=== PATIENT | female | born 1955 ===

== ENCOUNTER 2017-09-03 16:30 | Inpatient (IN) | payer MEDICARE, OTHER ==
[2017-09-03] MEDS ORDERED: Dexamethasone 10 MG/ML VIAL ONE ×2 (16:33)
[2017-09-03] MEDS ORDERED: Magnesium Sulfate 2 GM/100 ML BAG ONE (16:41)
[2017-09-03] MEDS ORDERED: Albuterol Sulfate 2.5 mg/3 ml Neb ONE (16:44)
[2017-09-03 16:47] LABS: Hemoglobin 14.2 g/dL (12.0-16.0); Mean Corpuscular HGB CONC 32.2 g/dL (32.0-36.0); Mean Corpuscular Hemoglobin 30.4 pg (27.0-31.0); Mean Corpuscular Volume 94.5 fl (81.0-99.0); Mean Platelet Volume 7.3 fL (7.4-10.4); Platelet Count 352 thou/uL (130-400); RBC Distribution Width 12.7 % (11.5-14.5); Red Blood Cell (RBC) Count 4.67 mill/uL (4.20-5.40); White Blood Cell (WBC) Count 24.3 thou/uL (4.8-10.8)
[2017-09-03 16:51] LABS: Actual Bicarbonate (HCO3a) 32.3 mEq/L (22-26); Base Excess (BEa) 5.2 mEq/L (0 (+/-) 2.5); CO2 Tension 58.8 mmHg (35.0-45.0); Hematocrit-ABG 46.5 % (36.0-47.0); O2 Tension (PaO2) 61.5 mmHg (80.0-100.0); pH, Arterial 7.36 (7.35-7.45)
[2017-09-03 16:52] LABS: Analyzer IN Cardio ER; Calcium, Ionized 1.2 mmol/L (1.12-1.30); Hemoglobin (Hb) 8.1 g/dL (12.0-16.0); Puncture Site RBA
[2017-09-03 16:53] LABS: INR-International Normal Ratio 1.2; PTT 33.3 SEC (22.9-36.1); Prothrombin Time 15.1 SEC (12.0-14.7)
[2017-09-03 17:02] LABS: Band 3 % (5-11); Lymphocytes 14 % (21-51); MDiff Complete? YES; Monocytes 7 % (0-10); Neutrophil 72 % (42-75); Nucleated RBC 1 % (0); PLT Morphology Comment Appears Adequate; RBC Morphology Normal; Reactive Lymphocytes 4 % (0-10)
[2017-09-03 17:05] LABS: ALT (SGPT) 17 U/L (8-55); AST (SGOT) 18 U/L (5-34); Albumin 4.1 g/dL (3.4-4.8); Alkaline Phosphatase 85 U/L (40-150); Anion Gap 20 mmol/L (10-20); BUN (Urea Nitrogen) 11 mg/dL (9.8-20.1); Bilirubin, Total 0.6 mg/dL (0.2-1.2); CK (CPK) 27 U/L (29-168); Calc. Creatinine Clearance 0 mL/min (70-130); Calcium 10.2 mg/dL (7.8-10.44); Carbon Dioxide 28 mmol/L (23-31); Chloride 93 mmol/L (98-107); Estimated GFR-MDRD 77; Globulin 3.5 g/dL (2.4-3.5); Glucose 279 mg/dL (80-115); Lipase 16 U/L (8-78); Potassium 4.6 mmol/L (3.5-5.1); Protein, Total 7.6 g/dL (6.0-8.3); Sodium 136 mmol/L (136-145)
[2017-09-03 17:08] LABS: CKMB 0.8 ng/mL (0-6.6); Troponin I Less than 0.010 ng/mL (< 0.028)
[2017-09-03 17:09] LABS: Bilirubin Negative (Negative); Blood, Urine Negative (Negative); Clarity CLEAR (Clear); Glucose, Urine (Dipstick) 250 mg/dL (Negative); Leukocyte Negative (Negative); Nitrite Negative (Negative); Protein, Urine (Dipstick) Negative (Neg-Trace); Specific Gravity, Urine 1.018 (1.002-1.036); Urobilinogen 0.2 mg/dL (0.2-1.0)
--- NOTE | 2017-09-03 19:01 | RAD ---
PORTABLE CHEST 09/03/17 PROVIDED CLINICAL HISTORY: Dyspnea. FINDINGS: comparison is made with the study dated 08/15/16. The examination is somewhat rotated. The cardiac silhouette is within normal limits for portable tech nique. There is interval development of pleural and/or parenchymal opacity involving the right mid an d lower lung zones. The left lung appears clear. There is no evidence for pleural fluid. Volume loss of the right lung base cannot be excluded. The left lung appears clear. There is no evidence for pleu ral fluid. Volume loss at the right lung base cannot be excluded as there appears to be possibly elev ation of the right hemidiaphragm. IMPRESSION: Development of right basilar pleural and/or parenchymal opacity. Pleural effusion with adjacent atele ctasis or infiltrate are possible. Followup is recommended. POS: GRAEME
[2017-09-03] MEDS ORDERED: Ondansetron HCl/PF 4 MG/2 ML Vial IVP PRN ×2 (21:02→21:10)
[2017-09-03] MEDS ORDERED: Ondansetron ODT 4 MG TAB SL PRN (21:02)
[2017-09-03] MEDS ORDERED: Sodium Chloride 0.9% 1,000 ML IV SCH (21:02)
[2017-09-03 21:04] LABS: Lactic Acid 2.2 mmol/L (0.5-2.2)
[2017-09-03] MEDS ORDERED: Acetaminophen 325 MG TAB PO PRN (21:10)
[2017-09-03] MEDS ORDERED: Acetaminophen 650 MG Suppository PR PRN (21:10)
[2017-09-03] MEDS ORDERED: HYDROcodone/Acetaminophen 5/325 mg Tablet PO PRN (21:10)
[2017-09-03] MEDS ORDERED: Gabapentin 300 MG CAP PO PRN (21:10)
[2017-09-03] MEDS ORDERED: Bisacodyl 5 MG TAB PO PRN (21:10)
[2017-09-03] MEDS ORDERED: Ondansetron ODT 4 MG TAB PO PRN (21:10)
[2017-09-03] MEDS ORDERED: Guaifenesin DM 100-10/5 ML UDCUP PO PRN (21:10)
[2017-09-03] MEDS ORDERED: Famotidine 20 MG TAB PO SCH (21:30)
[2017-09-03] MEDS ORDERED: Flecainide 50 MG TAB PO SCH (21:30)
[2017-09-03] MEDS ORDERED: Docusate 100 MG CAP PO SCH (21:30)
[2017-09-03] MEDS ORDERED: Montelukast Sodium 10 mg Tablet PO SCH (21:30)
[2017-09-03] MEDS ORDERED: Apixaban 5 MG TAB PO SCH (21:30)
[2017-09-03] MEDS: Sodium Chloride 0.9% 1,000 ML IV SCH (21:46)
--- NOTE | 2017-09-04 01:27 | HP ---
PRIMARY CARE PHYSICIAN: Dr. Martinez at [facility]. PRIMARY MODELER: Dr. Chavez at [facility] CHIEF COMPLAINT: Shortness of breath and hypoxia. HISTORY OF PRESENT ILLNESS: This is a 62-year-old white female with a known history of significant C OPD/emphysema along with allergic bronchial aspergillosis and asthma who was typically on home oxygen 2 liter nasal cannula. She has never been intubated or in the ICU for her COPD. She was in her [facility] state of health until this week when she started having a little more postnasal drip drainage fro m her nose and some stuffiness in her nose. No other symptoms significant to speak up. She was at h er baseline, intermittent cough that was intermittently productive of clear sputum, then this morning she started having significant worsening of shortness of breath and her oxygen saturation kept dropp ing. She turned it up to 4 liters, then we will get up to the low 90s and then it would drop again a nd then she turned it up to 5 liters and it still dropped into the 80s and eventually she called the ambulance. EMS found her with severe respiratory distress. They recommended intubation, she refused and stated that she wanted to be a DO NOT INTUBATE, so they put her on CPAP. She was saturating 88% on CPAP. When she arrived to the emergency room here, she got Solu-Medrol, epinephrine and DuoNeb i n the ambulance. In the emergency room, she again refused intubation. She was given another DuoNeb followed by continuous albuterol nebs. She was given mag sulfate. She was given Decadron in additio n to her Solu-Medrol and then she was given 0.5 mg per kilograms ketamine IV push x1. After this, laurie irwin started to have some improvement in her respiratory status and started to saturate better on th e BiPAP and now feeling much better. She has been given Levaquin as well in the emergency room along with a couple liters of fluid. The patient's chest x-ray did show a right lower middle lobe infiltr ate versus mass versus collapse with possible elevated right hemidiaphragm. We do not have any old f ilms to compare to. The patient did have radiation on that side for breast cancer and has some possi ble nodule on that lung as well. She does not remember anything about it being collapsed or having s ignificant severe scarring. PAST MEDICAL HISTORY: 1. COPD/asthma. 2. Allergic bronchial pulmonary aspergillosis. 3. Atrial fibrillation with previously rapid ventricular rate. 4. Acute myeloid leukemia, treated with bone marrow transplant in 2013. 5. Right breast cancer status post surgery and radiation. PAST SURGICAL HISTORY: 1. Right lumpectomy and right mastectomy. 2. Bone marrow transplant. SOCIAL HISTORY: Patient used to smoke heavily, quit in 2003. No alcohol or illicit drugs. FAMILY HISTORY: No significant family medical history. ALLERGIES: SULFA ANTIBIOTICS. CURRENT MEDICATIONS: The patient does not remember specific doses or medications she is on, 1. Singulair 10 mg daily. 2. Spiriva once a day. 3. Symbicort unknown dose. 4. Eliquis, small dose twice a day. 5. Flecainide twice a day. 6. Diltiazem 120 mg daily. 7. Digoxin 1 or 2 two tablets a day. 8. Gabapentin, which she takes and stretches out throughout the day, but usually about 300 mg tablet s and she will take 5 or 6 per day. 9. Hydrocodone 5/325 mg as needed for pain, usually 1 at night and once in time during the day. REVIEW OF SYSTEMS: Constitutional: No fever or chills. Eyes: No double vision or blurred vision. ENT: See HPI. Car diovascular: No chest pain, no palpitations or racing heart. Pulmonary: See HPI. Gastrointestinal : No abdominal pain, no nausea or vomiting, no diarrhea or constipation. Genitourinary: No dysuria or hematuria. Musculoskeletal: No muscle aches or joint pains. Skin: No rashes or other lesions. Neurologic: No numbness, tingling or focal weakness. PHYSICAL EXAMINATION: VITAL SIGNS: Blood pressure 188/62, pulse 110, respirations 26, temperature 98.8, O2 sat 97% on BiPA P. GENERAL: This is a well-developed, thin white female in mild respiratory distress on BiPAP. HEENT: Pupils equal, round, and reactive to light. Oropharynx obscured by the BiPAP mask. NECK: Supple, no lymphadenopathy, no thyroid nodules or enlargement, no JVD. HEART: Irregularly irregular rhythm, slightly tachycardic. No murmurs. LUNGS: Patient has decreased breath sounds and some coarse crackles in the right base and right mid lung. She has poor air movement in the right throughout. Left side is clear. ABDOMEN: Soft, nontender to palpation, normoactive bowel sounds, no hepatosplenomegaly or other mass es. EXTREMITIES: No clubbing, cyanosis or edema. SKIN: No rashes or other lesions noted. NEUROLOGIC: Cranial nerves intact and equal bilaterally without facial droop. Her deep tendon refle xes are equal in bilateral extremities and her strength is 5/5 in all extremities. LABORATORY: White blood cell count 24,000 with only 3 bands, 72% neutrophils, hemoglobin, hematocrit and platelet count are normal. Coagulation profile: INR of 1.2. Blood gases did show a pH 7.36, p CO2 of 58.8 and a pO2 of 61.5. Complete metabolic panel shows a chloride of 93, glucose of 279, crea joanne kinase 27, the rest is completely normal. Troponins negative x1. Brain natriuretic peptide is normal. Lactic acid was elevated at 2.4. Urine just showed some glucose and ketones, no evidence of infection. Chest x-ray: I did review the chest x-ray along with the radiologist's report, does camilla w mass versus infiltrate versus collapse of the right, mid and lower lung zones and possible right he midiaphragm elevation. There is no evidence of pleural fluid. They actually had a film from about a year ago that did not have these changes on EKG. The patient has atrial fibrillation with mildly fa ster rate. No significant ST changes. ASSESSMENT AND PLAN: 1. Acute hypoxic and hypercapnic respiratory failure, markedly improved after treatment and BiPAP. The patient is still a bit tenuous, will need to go to the [facility] on BiPAP for now. We will need Pulm onology consulted. We will continue DuoNebs as well as Solu-Medrol and Levaquin. Patient may benefi t her CT scan, but will leave that to Pulmonology to determine, will may also from her bronchoscopy s hould this worsen mucous plug causing lung collapse. I confirmed with patient that she does not want to be intubated. 2. Pneumonia, community-acquired pneumonia put patient on Levaquin and will follow white blood cell count. Her leukocytosis is pretty significant though without bandemia. We will monitor for improvem ent. 3. Chronic obstructive pulmonary disease/allergic bronchial aspergillosis. 4. Atrial fibrillation with rapid ventricular rate. We will resume patient's home medication. We w ill try and confirm dosages. We will also resume patient's anticoagulant. 5. Gastrointestinal prophylaxis. Put the patient on Pepcid twice a day. 6. Code status. I did discuss the case with the patient and she is okay with CPR shocks, but does n ot want to be intubated at this point, so she is a DNI. Should she be incapacitated, her son, Jaya Gutierrez would be her medical power of business attorney.
[2017-09-04] MEDS ORDERED: Dextrose 5% in Water 1,000 ML IV PRN (01:37)
[2017-09-04] MEDS ORDERED: Dextrose 50% Abboject 50 ML SYRINGE IVP PRN (01:37)
[2017-09-04 05:33] LABS: #Lymphocytes 0.5 thou/uL (1.20-3.40); #Monocytes 0.1 thou/uL (0.11-0.59); #Neutrophils 13.4 thou/uL (1.40-6.50); %Eosinophils 0.1 % (0.0-10.0); %Lymphocytes 3.6 % (21.0-51.0); %Monocytes 0.8 % (0.0-10.0); %Neutrophils 95.5 % (42.0-75.0); Hemoglobin 11.4 g/dL (12.0-16.0); Mean Corpuscular Hemoglobin 30.3 pg (27.0-31.0); Mean Corpuscular Volume 94.8 fl (81.0-99.0); Mean Platelet Volume 7.3 fL (7.4-10.4); Platelet Count 271 thou/uL (130-400); RBC Distribution Width 12.5 % (11.5-14.5); Red Blood Cell (RBC) Count 3.75 mill/uL (4.20-5.40); White Blood Cell (WBC) Count 14.1 thou/uL (4.8-10.8)
[2017-09-04] MEDS: HumaLOG 300 UNITS/3 ML VIAL SC PRN ×2 (06:32→20:37)
[2017-09-04 06:44] LABS: Anion Gap 14 mmol/L (10-20); BUN (Urea Nitrogen) 11 mg/dL (9.8-20.1); Calc. Creatinine Clearance 78 mL/min (70-130); Calcium 8.2 mg/dL (7.8-10.44); Carbon Dioxide 29 mmol/L (23-31); Chloride 101 mmol/L (98-107); Estimated GFR-MDRD Greater than 90; Glucose 246 mg/dL (80-115); Potassium 4.5 mmol/L (3.5-5.1); Sodium 139 mmol/L (136-145)
[2017-09-04] MEDS ORDERED: Gabapentin 300 MG CAP PO SCH ×4 (09:00→17:00)
[2017-09-04] MEDS ORDERED: FLU VACC QS2017-18 36 mo. & older 0.5 ML SYRINGE IM ONE (09:00)
[2017-09-04] MEDS ORDERED: Flecainide 50 MG TAB PO SCH (09:00)
[2017-09-04] MEDS: Famotidine 20 MG TAB PO SCH ×2 (09:39→20:22)
[2017-09-04] MEDS: Docusate 100 MG CAP PO SCH ×2 (09:39→20:23)
[2017-09-04] MEDS: Apixaban 5 MG TAB PO SCH ×2 (09:41→20:22)
[2017-09-04] MEDS: Digoxin 0.125 MG TAB PO SCH (09:42)
[2017-09-04] MEDS: Sodium Chloride 0.9% 1,000 ML IV SCH (12:29)
[2017-09-04] MEDS ORDERED: Digoxin 0.125 MG TAB PO PRN (14:06)
[2017-09-04] MEDS ORDERED: PROVENTIL INHALER 6.7 G (200 INHALATIONS) INH PRN (14:06)
[2017-09-04] MEDS ORDERED: Lorazepam 0.5 MG TAB PO SCH (15:00)
[2017-09-04] MEDS: Levalbuterol HCl 0.63 MG/3 ML NEB NEB SCH ×2 (16:14→22:31)
[2017-09-04] MEDS: Gabapentin 300 MG CAP PO SCH ×3 (17:18→23:44)
[2017-09-04] MEDS: Ipratropium Bromide 2.5 ml Neb NEB SCH ×2 (18:50→22:32)
[2017-09-04] MEDS: Mometasone/Formoterol 120 PUFF INHALER INH SCH (18:51)
--- NOTE | 2017-09-04 19:16 | PDOC.PN ---
- Subjective Encounter Start Date: 09/04/17 Encounter Start Time: 11:00 Pt seen for followup re: acute respiratory failure. Reports cough, small amout of sputum. No chest pain. No fevers or chills. - Objective Resuscitation Status: Resuscitation Status DNI:No Intubation MAR Reviewed: Yes Vital Signs & Weight: Vital Signs (12 hours) Temp Pulse Pulse Pulse Resp BP BP 09/04/17 18:50 106 H 20 09/04/17 16:14 98 22 H 09/04/17 15:45 99.2 F 98 20 09/04/17 15:24 100 106 H 109/59 L 100/66 09/04/17 15:13 95/53 L 09/04/17 12:00 98.8 F 95 18 09/04/17 09:42 94 09/04/17 08:00 98.8 F 95 18 BP Pulse Ox Pulse Ox Pulse Ox 09/04/17 18:50 09/04/17 16:14 99 09/04/17 15:45 109/59 L 95 09/04/17 15:24 96 91 L 09/04/17 15:13 93 L 09/04/17 12:00 111/65 98 09/04/17 09:42 09/04/17 08:00 99 Weight Admit Weight 120 lb 9 oz Weight 120 lb 9 oz I&O: 09/03/17 09/04/17 09/05/17 06:59 06:59 06:59 Intake Total 1193.75 Output Total 800 1900 Balance 393.75 -1900 Result Diagrams: 09/04/17 04:55 09/04/17 04:55 Additional Labs: Accuchecks 09/04/17 09/04/17 09/04/17 16:27 10:46 06:27 POC Glucose 218 H 171 H 219 H EKG Reviewed by me: Yes (Tele: NSR) Phys Exam - Physical Examination Constitutional: NAD HEENT: PERRLA, moist MMs, sclera anicteric, oral pharynx no lesions Neck: no nodes, no JVD, supple, full ROM Respiratory: no wheezing, no rales, no rhonchi, clear to auscultation bilateral Cardiovascular: RRR, no rub Gastrointestinal: soft, non-tender, no distention, positive bowel sounds Musculoskeletal: pulses present Neurological: moves all 4 limbs Psychiatric: normal affect, A&O x 3 Skin: no rash Dx/Plan (1) Acute respiratory failure with hypoxia and hypercapnia Code(s): J96.01 - ACUTE RESPIRATORY FAILURE WITH HYPOXIA; J96.02 - ACUTE RESPIRATORY FAILURE WITH HYPERCAPNIA Status: Acute (2) CAP (community acquired pneumonia) Code(s): J18.9 - PNEUMONIA, UNSPECIFIED ORGANISM Status: Acute (3) COPD (chronic obstructive pulmonary disease) Status: Acute (4) Lactic acidosis Code(s): E87.2 - ACIDOSIS Status: Resolved - Plan continue antibiotics, PT/OT, out of bed/ambulate * . Continue oxygen, steroids, bronchodilators and antibiotics. In NSR today. Review of Systems - Review of Systems Constitutional: weakness. negative: fever, chills, sweats, malaise Respiratory: Cough, SOB with Excertion, Sputum. negative: Dry, Shortness of Breath, Hemoptysis, Pleuritic Pain, Wheezing Cardiovascular: negative: chest pain, palpitations, orthopnea, paroxysmal nocturnal dyspnea, edema, light headedness Gastrointestinal: negative: Nausea, Vomiting, Abdominal Pain, Diarrhea, Constipation, Melena, Hematochezia Genitourinary: negative: Dysuria, Frequency, Incontinence, Hematuria, Retention - Medications/Allergies Allergies/Adverse Reactions: Allergies Allergy/AdvReac Type Severity Reaction Status Date / Time Sulfa (Sulfonamide Allergy Verified 09/04/17 00:24 Antibiotics) Medications: Current Medications Acetaminophen (Tylenol) 650 mg KS Q4H PRN PRN Reason: Headache/Fever or Pain Acetaminophen (Tylenol Er (8hr Arthritis Pain)) 650 mg PO QID PRN PRN Reason: Pain Hydrocodone Bitart/Acetaminophen (Ashley 5/325) 1 tab PO Q6H PRN PRN Reason: Pain Albuterol Sulfate (Proventil Hfa) 2 puff INH Q6H PRN PRN Reason: SOB &/or Wheezing Albuterol/Ipratropium (Duoneb) 3 ml NEB [id number] PRN PRN Reason: SOB &/or Wheezing Alendronate Sodium (Fosamax) 70 mg PO Q7D@0600 [facility] Apixaban (Eliquis) 2.5 mg PO BID [facility] Last Admin: 09/04/17 09:41 Dose: 2.5 mg Bisacodyl (Dulcolax) 10 mg PO DAILYPRN PRN PRN Reason: Constipation Cholecalciferol (Vitamin D3) 1,000 units PO DAILY [facility] Cyclosporine (Restasis) 0.4 ml EA EYE BID [facility] Dextrose/Water (Dextrose 50%) 25 gm IVP PRN PRN PRN Reason: HYPOGLYCEMIA PROTOCOL Digoxin (Lanoxin) 0.125 mg PO DAILY [facility] Last Admin: 09/04/17 09:42 Dose: 0.125 mg Digoxin (Lanoxin) 0.125 mg PO DAILY PRN PRN Reason: To Control Heart Rate Diltiazem HCl (Cardizem Cd) 180 mg PO DAILY [facility] Docusate Sodium (Colace) 100 mg PO BID [facility] Last Admin: 09/04/17 09:39 Dose: 100 mg Famotidine (Pepcid) 20 mg PO BID [facility] Last Admin: 09/04/17 09:39 Dose: 20 mg Flecainide Acetate (Tambocor) 50 mg PO BID [facility] Gabapentin (Neurontin) 600 mg PO QAM [facility] Gabapentin (Neurontin) 300 mg PO 1300,1700,2100,2359 [facility] Last Admin: 09/04/17 17:18 Dose: 300 mg Glucagon (Glucagon) 1 mg IM PRN PRN PRN Reason: HYPOGLYCEMIA PROTOCOL Guaifenesin/Dextromethorphan (Robitussin Dm) 15 ml PO Q4H PRN PRN Reason: Cough Levofloxacin 750 mg/ Device 150 mls @ 100 mls/hr IVPB 1700 [facility] Last Admin: 09/04/17 17:16 Dose: 150 mls Sodium Chloride (Normal Saline 0.9%) 1,000 mls @ 75 mls/hr IV .[id number] [facility] Last Admin: 09/04/17 12:29 Dose: 1,000 mls Dextrose/Water (D5w) 1,000 mls @ 0 mls/hr IV INF PRN; As Directed PRN Reason: HYPOGLYCEMIA PROTOCOL Insulin Human Lispro (Humalog) 0 units SC .AGGRESSIVE SLIDING PRN; Protocol PRN Reason: AGGRESSIVE SLIDING SCALE Insulin Human Lispro (Humalog) 0 units SC .BEDTIME SLIDING SC PRN; Protocol PRN Reason: BEDTIME SLIDING SCALE Last Admin: 09/04/17 06:32 Dose: 2 unit Ipratropium [place] (Atrovent) 2.5 ml NEB [id number] [facility] Last Admin: 09/04/17 18:50 Dose: 2.5 ml Levalbuterol HCl (Xopenex) 0.63 mg NEB [id number] [facility] Last Admin: 09/04/17 16:14 Dose: 0.63 mg Lidocaine HCl (Xylocaine 4% Topical Sharon) 0 ml TOP BID PRN PRN Reason: Topical Anesthetic Lorazepam (Ativan) 0.5 mg PO Q4H PRN PRN Reason: Anxiety Methylprednisolone Sodium Succinate (Solu-Medrol) 40 mg IVP Q6HR [facility] Last Admin: 09/04/17 17:18 Dose: 40 mg Mometasone Furoate/Formoterol Fumar (Dulera 200 Mcg/5 Mcg Inhaler) 2 puff INH BID-RT [facility] Last Admin: 09/04/17 18:51 Dose: 2 puff Montelukast Sodium (Singulair) 10 mg PO HS [facility] Nebivolol (Bystolic) 2.5 mg PO DAILY [facility] Ondansetron HCl (Zofran Odt) 4 mg PO Q6H PRN PRN Reason: Nausea/Vomiting Ondansetron HCl (Zofran) 4 mg IVP Q6H PRN PRN Reason: Nausea/Vomiting Prednisone (Prednisone) 10 mg PO DAILY [facility] Sodium Chloride (Flush - Normal Saline) 10 ml IVF Q12HR [facility] Last Admin: 09/04/17 09:43 Dose: 10 ml Sodium Chloride (Flush - Normal Saline) 10 ml IVF PRN PRN PRN Reason: Saline Flush
[2017-09-04] MEDS: Montelukast Sodium 10 mg Tablet PO SCH (20:22)
[2017-09-04] MEDS: Flecainide 50 MG TAB PO SCH (20:22)
[2017-09-04] MEDS: cycloSPORINE 0.05% Ophthalmic Droperette EA EYE SCH (20:24)
[2017-09-04] MEDS ORDERED: Non-Formulary Item 1 EACH (Budesonide-Formoterol [Symbicort 160-4.5] 2 PUFF) INH SCH (21:00)
[2017-09-04] MEDS ORDERED: Non-Formulary Item 1 EACH (Apixaban [Eliquis] 2.5 MG) PO SCH (21:00)
[2017-09-04] MEDS ORDERED: Montelukast Sodium 10 mg Tablet PO SCH (21:00)
[2017-09-04] MEDS: Lorazepam 0.5 MG TAB PO PRN (23:44)
[2017-09-05] MEDS: HYDROcodone/Acetaminophen 5/325 mg Tablet PO PRN (00:56)
[2017-09-05] MEDS: Lidocaine 4% Topical Sol 50 ML BOT TOP PRN (01:04)
[2017-09-05] MEDS: Sodium Chloride 0.9% 1,000 ML IV SCH ×3 (03:53→22:30)
[2017-09-05 05:39] LABS: Hemoglobin 10.3 g/dL (12.0-16.0); Platelet Count 279 thou/uL (130-400)
[2017-09-05 05:42] LABS: Calc. Creatinine Clearance 85 mL/min (70-130); Estimated GFR-MDRD Greater than 90
[2017-09-05] MEDS: HumaLOG 300 UNITS/3 ML VIAL SC PRN ×3 (06:31→20:57)
[2017-09-05] MEDS: Levalbuterol HCl 0.63 MG/3 ML NEB NEB SCH ×3 (08:21→23:42)
[2017-09-05] MEDS: Ipratropium Bromide 2.5 ml Neb NEB SCH ×4 (08:24→23:42)
[2017-09-05] MEDS: Mometasone/Formoterol 120 PUFF INHALER INH SCH ×2 (08:24→18:59)
[2017-09-05] MEDS ORDERED: Gabapentin 300 MG CAP PO SCH (09:00)
[2017-09-05] MEDS ORDERED: predniSONE 5 MG TAB PO SCH (09:00)
[2017-09-05] MEDS ORDERED: Spiriva 18 MCG CAP (Box of 5 Caps) INH SCH (09:00)
[2017-09-05] MEDS ORDERED: Non-Formulary Item 1 EACH (Prednisone [Prednisone] 10 MG) PO SCH (09:00)
[2017-09-05] MEDS ORDERED: Non-Formulary Item 1 EACH (Cholecalciferol (Vitamin D3) [Vitamin D3] 1,000 UNIT) PO SCH (09:00)
[2017-09-05] MEDS: Apixaban 5 MG TAB PO SCH ×2 (09:12→20:55)
[2017-09-05] MEDS: Flecainide 50 MG TAB PO SCH ×2 (09:16→20:56)
[2017-09-05] MEDS: Digoxin 0.125 MG TAB PO SCH (09:16)
[2017-09-05] MEDS: Nebivolol HCl 2.5 MG TAB PO SCH (09:17)
[2017-09-05] MEDS: Famotidine 20 MG TAB PO SCH ×2 (09:17→20:56)
[2017-09-05] MEDS: Docusate 100 MG CAP PO SCH ×2 (09:24→20:55)
[2017-09-05] MEDS: cycloSPORINE 0.05% Ophthalmic Droperette EA EYE SCH ×2 (10:09→20:56)
[2017-09-05] MEDS: Gabapentin 300 MG CAP PO SCH ×2 (12:17→18:01)
[2017-09-05] MEDS: Insulin Detemir 100 UNITS/ML 15 UNITS in Pre-Filled Syringe 1 EACH SC SCH (12:19)
--- NOTE | 2017-09-05 14:09 | PDOC.PN ---
- Subjective Encounter Start Date: 09/05/17 Encounter Start Time: 11:00 Pt seen for followup re: acute respiratory failure. Denies chest pain, shortness of breath, fevers or chills. - Objective Resuscitation Status: Resuscitation Status DNI:No Intubation MAR Reviewed: Yes Vital Signs & Weight: Vital Signs (12 hours) Temp Pulse Resp BP Pulse Ox 09/05/17 10:45 98.0 F 108 H 20 122/62 96 09/05/17 09:16 105 H 09/05/17 08:25 99 09/05/17 08:21 105 H 20 99 09/05/17 07:49 98.4 F 99 16 97 09/05/17 07:00 97.8 F 88 17 99/61 99 09/05/17 04:00 98.4 F 99 16 100/58 L 96 Weight Admit Weight 120 lb 9 oz Weight 121 lb 3 oz I&O: 09/04/17 09/05/17 09/06/17 06:59 06:59 06:59 Intake Total 1193.75 900 Output Total 800 3075 Balance 393.75 -2175 Result Diagrams: 09/05/17 03:54 09/05/17 03:54 Additional Labs: Accuchecks 09/05/17 09/05/17 09/04/17 10:40 05:39 20:14 POC Glucose 199 H 231 H 219 H 09/04/17 16:27 POC Glucose 218 H EKG Reviewed by me: Yes (Tele: NSR) Phys Exam - Physical Examination Constitutional: NAD HEENT: moist MMs Respiratory: clear to auscultation bilateral Cardiovascular: RRR Gastrointestinal: soft Neurological: moves all 4 limbs Psychiatric: normal affect Dx/Plan (1) Acute respiratory failure with hypoxia and hypercapnia Code(s): J96.01 - ACUTE RESPIRATORY FAILURE WITH HYPOXIA; J96.02 - ACUTE RESPIRATORY FAILURE WITH HYPERCAPNIA Status: Acute (2) CAP (community acquired pneumonia) Code(s): J18.9 - PNEUMONIA, UNSPECIFIED ORGANISM Status: Acute (3) COPD (chronic obstructive pulmonary disease) Status: Acute (4) Lactic acidosis Code(s): E87.2 - ACIDOSIS Status: Resolved - Plan continue antibiotics, PT/OT, out of bed/ambulate * . Pt improved toay. Continue antibiotics, oxygen, steroids, bronchodilators. Review of Systems - Review of Systems Respiratory: Cough, Sputum. negative: Dry, Shortness of Breath, Hemoptysis, SOB with Excertion, Pleuritic Pain, Wheezing Cardiovascular: negative: chest pain, palpitations, orthopnea, paroxysmal nocturnal dyspnea, edema, light headedness - Medications/Allergies Allergies/Adverse Reactions: Allergies Allergy/AdvReac Type Severity Reaction Status Date / Time Sulfa (Sulfonamide Allergy Verified 09/04/17 00:24 Antibiotics) Medications: Current Medications Acetaminophen (Tylenol) 650 mg [place] Q4H PRN PRN Reason: Headache/Fever or Pain Acetaminophen (Tylenol Er (8hr Arthritis Pain)) 650 mg PO QID PRN PRN Reason: Pain Hydrocodone Bitart/Acetaminophen ([place] 5/325) 1 tab PO Q6H PRN PRN Reason: Pain Last Admin: 09/05/17 00:56 Dose: 1 tab Albuterol Sulfate (Proventil Hfa) 2 puff INH Q6H PRN PRN Reason: SOB &/or Wheezing Albuterol/Ipratropium (Duoneb) 3 ml NEB [id number] PRN PRN Reason: SOB &/or Wheezing Alendronate Sodium (Fosamax) 70 mg PO Q7D@0600 [facility] Apixaban (Eliquis) 2.5 mg PO BID [facility] Last Admin: 09/05/17 09:12 Dose: 2.5 mg Bisacodyl (Dulcolax) 10 mg PO DAILYPRN PRN PRN Reason: Constipation Cholecalciferol (Vitamin D3) 1,000 units PO DAILY [facility] Last Admin: 09/05/17 09:22 Dose: 1,000 units Cyclosporine (Restasis) 0.4 ml EA EYE BID [facility] Last Admin: 09/05/17 10:09 Dose: Not Given Dextrose/Water (Dextrose 50%) 25 gm IVP PRN PRN PRN Reason: HYPOGLYCEMIA PROTOCOL Digoxin (Lanoxin) 0.125 mg PO DAILY [facility] Last Admin: 09/05/17 09:16 Dose: 0.125 mg Digoxin (Lanoxin) 0.125 mg PO DAILY PRN PRN Reason: To Control Heart Rate Diltiazem HCl (Cardizem Cd) 180 mg PO DAILY [facility] Last Admin: 09/05/17 09:24 Dose: 180 mg Docusate Sodium (Colace) 100 mg PO BID [facility] Last Admin: 09/05/17 09:24 Dose: 100 mg Famotidine (Pepcid) 20 mg PO BID [facility] Last Admin: 09/05/17 09:17 Dose: 20 mg Flecainide Acetate (Tambocor) 50 mg PO BID [facility] Last Admin: 09/05/17 09:16 Dose: 50 mg Gabapentin (Neurontin) 600 mg PO Q6HR [facility] Last Admin: 09/05/17 12:17 Dose: 600 mg Glucagon (Glucagon) 1 mg IM PRN PRN PRN Reason: HYPOGLYCEMIA PROTOCOL Guaifenesin/Dextromethorphan (Robitussin Dm) 15 ml PO Q4H PRN PRN Reason: Cough Levofloxacin 750 mg/ Device 150 mls @ 100 mls/hr IVPB 1700 [facility] Last Admin: 09/04/17 17:16 Dose: 150 mls Sodium Chloride (Normal Saline 0.9%) 1,000 mls @ 75 mls/hr IV .[id number] [facility] Last Admin: 09/05/17 03:53 Dose: 1,000 mls Dextrose/Water (D5w) 1,000 mls @ 0 mls/hr IV INF PRN; As Directed PRN Reason: HYPOGLYCEMIA PROTOCOL Insulin Detemir 15 units/ (Miscellaneous Medication) 0.15 mls @ 0 mls/hr SC QAM [facility] Last Admin: 09/05/17 12:19 Dose: 0.15 mls Insulin Human Lispro (Humalog) 0 units SC .AGGRESSIVE SLIDING PRN; Protocol PRN Reason: AGGRESSIVE SLIDING SCALE Last Admin: 09/05/17 06:31 Dose: 6 unit Insulin Human Lispro (Humalog) 0 units SC .BEDTIME SLIDING SC PRN; Protocol PRN Reason: BEDTIME SLIDING SCALE Last Admin: 09/04/17 20:37 Dose: 2 unit Ipratropium [place] (Atrovent) 2.5 ml NEB [id number] [facility] Last Admin: 09/05/17 08:24 Dose: 2.5 ml Levalbuterol HCl (Xopenex) 0.63 mg NEB [id number] [facility] Last Admin: 09/05/17 08:21 Dose: 0.63 mg Lidocaine HCl (Xylocaine 4% Topical Sharon) 0 ml TOP BID PRN PRN Reason: Topical Anesthetic Last Admin: 09/05/17 01:04 Dose: 1 applic Lorazepam (Ativan) 0.5 mg PO Q4H PRN PRN Reason: Anxiety Last Admin: 09/04/17 23:44 Dose: 0.5 mg Methylprednisolone Sodium Succinate (Solu-Medrol) 40 mg IVP Q6HR [facility] Last Admin: 09/05/17 12:27 Dose: 40 mg Mometasone Furoate/Formoterol Fumar (Dulera 200 Mcg/5 Mcg Inhaler) 2 puff INH BID-RT [facility] Last Admin: 09/05/17 08:24 Dose: 2 puff Montelukast Sodium (Singulair) 10 mg PO HS [facility] Last Admin: 09/04/17 20:22 Dose: 10 mg Nebivolol (Bystolic) 2.5 mg PO DAILY [facility] Last Admin: 09/05/17 09:17 Dose: 2.5 mg Ondansetron HCl (Zofran Odt) 4 mg PO Q6H PRN PRN Reason: Nausea/Vomiting Ondansetron HCl (Zofran) 4 mg IVP Q6H PRN PRN Reason: Nausea/Vomiting Sodium Chloride (Flush - Normal Saline) 10 ml IVF Q12HR [facility] Last Admin: 09/05/17 10:09 Dose: Not Given Sodium Chloride (Flush - Normal Saline) 10 ml IVF PRN PRN PRN Reason: Saline Flush
--- NOTE | 2017-09-05 15:15 | EKG ---
Test Reason : Blood Pressure : / mmHG Vent. Rate : 121 BPM Atrial Rate : 121 BPM P-R Int : 164 ms QRS Dur : 096 ms QT Int : 316 ms P-R-T Axes : 061 068 088 degrees QTc Int : 448 ms Sinus tachycardia Nonspecific ST abnormality Abnormal ECG Confirmed by SUZANNE MASCORRO, GABRIEL ([id number]), newspaper managing editor MARIAM CERVANTES ([id number]) on 09/05/2017 3:14:44 PM Referred By: Confirmed By:GABRIEL PALACIOS MD
[2017-09-05] MEDS: Montelukast Sodium 10 mg Tablet PO SCH (20:56)
[2017-09-05] MEDS: Acetaminophen ER (8hr) 650 MG TAB PO PRN (21:11)
[2017-09-06] MEDS: HYDROcodone/Acetaminophen 5/325 mg Tablet PO PRN (00:01)
[2017-09-06] MEDS: Lidocaine 4% Topical Sol 50 ML BOT TOP PRN (01:17)
[2017-09-06] MEDS: Lorazepam 0.5 MG TAB PO PRN ×2 (01:17→20:01)
[2017-09-06 04:48] LABS: Anion Gap 11 mmol/L (10-20); BUN (Urea Nitrogen) 18 mg/dL (9.8-20.1); Calc. Creatinine Clearance 83 mL/min (70-130); Calcium 8.5 mg/dL (7.8-10.44); Carbon Dioxide 31 mmol/L (23-31); Chloride 103 mmol/L (98-107); Estimated GFR-MDRD Greater than 90; Glucose 297 mg/dL (80-115); Potassium 3.9 mmol/L (3.5-5.1); Sodium 141 mmol/L (136-145)
[2017-09-06 05:08] LABS: Band 18 % (5-11); Hemoglobin 10.6 g/dL (12.0-16.0); Lymphocytes 2 % (21-51); MDiff Complete? YES; Mean Corpuscular HGB CONC 31.8 g/dL (32.0-36.0); Mean Corpuscular Hemoglobin 30.2 pg (27.0-31.0); Mean Corpuscular Volume 94.8 fl (81.0-99.0); Mean Platelet Volume 7.4 fL (7.4-10.4); Monocytes 4 % (0-10); Neutrophil 76 % (42-75); PLT Morphology Comment Appears Adequate; Platelet Count 302 thou/uL (130-400); RBC Distribution Width 12.7 % (11.5-14.5); RBC Morphology Normal; Red Blood Cell (RBC) Count 3.51 mill/uL (4.20-5.40)
[2017-09-06] MEDS: Gabapentin 300 MG CAP PO SCH ×4 (06:11→17:56)
[2017-09-06] MEDS: HumaLOG 300 UNITS/3 ML VIAL SC PRN ×4 (06:23→20:08)
[2017-09-06] MEDS: Levalbuterol HCl 0.63 MG/3 ML NEB NEB SCH ×2 (07:47→14:47)
[2017-09-06] MEDS: Mometasone/Formoterol 120 PUFF INHALER INH SCH ×2 (07:50→19:30)
[2017-09-06] MEDS: Ipratropium Bromide 2.5 ml Neb NEB SCH ×3 (07:50→19:30)
[2017-09-06] MEDS: Apixaban 5 MG TAB PO SCH ×2 (08:18→20:00)
[2017-09-06] MEDS: Digoxin 0.125 MG TAB PO SCH (08:19)
[2017-09-06] MEDS: Famotidine 20 MG TAB PO SCH ×2 (08:19→20:01)
[2017-09-06] MEDS: Flecainide 50 MG TAB PO SCH ×2 (08:19→20:01)
[2017-09-06] MEDS: Docusate 100 MG CAP PO SCH ×2 (08:19→20:01)
[2017-09-06] MEDS: Nebivolol HCl 2.5 MG TAB PO SCH (08:20)
[2017-09-06] MEDS: Insulin Detemir 100 UNITS/ML 15 UNITS in Pre-Filled Syringe 1 EACH SC SCH (08:20)
[2017-09-06] MEDS: cycloSPORINE 0.05% Ophthalmic Droperette EA EYE SCH ×2 (08:21→20:12)
--- NOTE | 2017-09-06 14:37 | PDOC.PN ---
- Subjective Encounter Start Date: 09/06/17 Encounter Start Time: 10:40 Pt seen for followup re: acute respiratory failure. Feels better. - Objective Resuscitation Status: Resuscitation Status DNI:No Intubation MAR Reviewed: Yes Vital Signs & Weight: Vital Signs (12 hours) Temp Pulse Resp BP Pulse Ox 09/06/17 11:45 97.7 F 98 18 126/74 92 L 09/06/17 08:19 95 09/06/17 07:50 97 09/06/17 07:47 97.6 F 95 22 H 109/67 97 09/06/17 07:27 98.3 F 92 16 93 L 09/06/17 04:00 98.3 F 92 16 98/65 92 L Weight Admit Weight 120 lb 9 oz Weight 126 lb 8 oz I&O: 09/05/17 09/06/17 09/07/17 06:59 06:59 06:59 Intake Total 900 3300 Output Total 3075 3250 Balance -2175 50 Result Diagrams: 09/06/17 03:44 09/06/17 03:44 Additional Labs: Accuchecks 09/06/17 09/06/17 09/06/17 11:21 05:34 00:11 POC Glucose 319 H 275 H 271 H 09/05/17 09/05/17 20:31 15:41 POC Glucose 229 H 189 H EKG Reviewed by me: Yes (Tele: NSR) Phys Exam - Physical Examination Constitutional: NAD HEENT: moist MMs Neck: supple Respiratory: clear to auscultation bilateral Cardiovascular: RRR Gastrointestinal: soft Neurological: moves all 4 limbs Psychiatric: normal affect Dx/Plan (1) Acute respiratory failure with hypoxia and hypercapnia Code(s): J96.01 - ACUTE RESPIRATORY FAILURE WITH HYPOXIA; J96.02 - ACUTE RESPIRATORY FAILURE WITH HYPERCAPNIA Status: Acute (2) CAP (community acquired pneumonia) Code(s): J18.9 - PNEUMONIA, UNSPECIFIED ORGANISM Status: Acute (3) COPD (chronic obstructive pulmonary disease) Status: Acute (4) Lactic acidosis Code(s): E87.2 - ACIDOSIS Status: Resolved - Plan continue antibiotics, PT/OT, out of bed/ambulate * . Increase levemir dose. Continue levofloxacin. Review of Systems - Review of Systems Constitutional: negative: fever, chills, sweats, weakness, malaise Respiratory: Cough, Sputum. negative: Dry, Shortness of Breath, Hemoptysis, SOB with Excertion, Pleuritic Pain, Wheezing Cardiovascular: negative: chest pain, palpitations, orthopnea, paroxysmal nocturnal dyspnea, edema, light headedness - Medications/Allergies Allergies/Adverse Reactions: Allergies Allergy/AdvReac Type Severity Reaction Status Date / Time Sulfa (Sulfonamide Allergy Verified 09/04/17 00:24 Antibiotics) Medications: Current Medications Acetaminophen (Tylenol) 650 mg NM Q4H PRN PRN Reason: Headache/Fever or Pain Acetaminophen (Tylenol Er (8hr Arthritis Pain)) 650 mg PO QID PRN PRN Reason: Pain Last Admin: 09/05/17 21:11 Dose: 650 mg Hydrocodone Bitart/Acetaminophen ([place] 5/325) 1 tab PO Q6H PRN PRN Reason: Pain Last Admin: 09/06/17 00:01 Dose: 1 tab Albuterol Sulfate (Proventil Hfa) 2 puff INH Q6H PRN PRN Reason: SOB &/or Wheezing Albuterol/Ipratropium (Duoneb) 3 ml NEB [id number] PRN PRN Reason: SOB &/or Wheezing Alendronate Sodium (Fosamax) 70 mg PO Q7D@0600 [facility] Apixaban (Eliquis) 2.5 mg PO BID [facility] Last Admin: 09/06/17 08:18 Dose: 2.5 mg Bisacodyl (Dulcolax) 10 mg PO DAILYPRN PRN PRN Reason: Constipation Cholecalciferol (Vitamin D3) 1,000 units PO DAILY [facility] Last Admin: 09/06/17 08:19 Dose: 1,000 units Cyclosporine (Restasis) 0.4 ml EA EYE BID [facility] Last Admin: 09/06/17 08:21 Dose: Not Given Dextrose/Water (Dextrose 50%) 25 gm IVP PRN PRN PRN Reason: HYPOGLYCEMIA PROTOCOL Digoxin (Lanoxin) 0.125 mg PO DAILY [facility] Last Admin: 09/06/17 08:19 Dose: 0.125 mg Digoxin (Lanoxin) 0.125 mg PO DAILY PRN PRN Reason: To Control Heart Rate Diltiazem HCl (Cardizem Cd) 180 mg PO DAILY [facility] Last Admin: 09/06/17 08:19 Dose: 180 mg Docusate Sodium (Colace) 100 mg PO BID [facility] Last Admin: 09/06/17 08:19 Dose: 100 mg Famotidine (Pepcid) 20 mg PO BID [facility] Last Admin: 09/06/17 08:19 Dose: 20 mg Flecainide Acetate (Tambocor) 50 mg PO BID [facility] Last Admin: 09/06/17 08:19 Dose: 50 mg Gabapentin (Neurontin) 600 mg PO Q6HR [facility] Last Admin: 09/06/17 11:35 Dose: 600 mg Glucagon (Glucagon) 1 mg IM PRN PRN PRN Reason: HYPOGLYCEMIA PROTOCOL Guaifenesin/Dextromethorphan (Robitussin Dm) 15 ml PO Q4H PRN PRN Reason: Cough Levofloxacin 750 mg/ Device 150 mls @ 100 mls/hr IVPB 1700 [facility] Last Admin: 09/05/17 18:03 Dose: 150 mls Sodium Chloride (Normal Saline 0.9%) 1,000 mls @ 75 mls/hr IV .[id number] [facility] Last Admin: 09/05/17 22:30 Dose: 1,000 mls Dextrose/Water (D5w) 1,000 mls @ 0 mls/hr IV INF PRN; As Directed PRN Reason: HYPOGLYCEMIA PROTOCOL Insulin Detemir 15 units/ (Miscellaneous Medication) 0.15 mls @ 0 mls/hr SC QAM [facility] Last Admin: 09/06/17 08:20 Dose: 0.15 mls Insulin Human Lispro (Humalog) 0 units SC .AGGRESSIVE SLIDING PRN; Protocol PRN Reason: AGGRESSIVE SLIDING SCALE Last Admin: 09/06/17 11:35 Dose: 11 unit Insulin Human Lispro (Humalog) 0 units SC .BEDTIME SLIDING SC PRN; Protocol PRN Reason: BEDTIME SLIDING SCALE Last Admin: 09/05/17 20:57 Dose: 2 unit Ipratropium [place] (Atrovent) 2.5 ml NEB [id number] [facility] Last Admin: 09/06/17 07:50 Dose: 2.5 ml Levalbuterol HCl (Xopenex) 0.63 mg NEB [id number] [facility] Last Admin: 09/06/17 07:47 Dose: 0.63 mg Lidocaine HCl (Xylocaine 4% Topical [place]) 0 ml TOP BID PRN PRN Reason: Topical Anesthetic Last Admin: 09/06/17 01:17 Dose: 1 applic Lorazepam (Ativan) 0.5 mg PO Q4H PRN PRN Reason: Anxiety Last Admin: 09/06/17 01:17 Dose: 0.5 mg Methylprednisolone Sodium Succinate (Solu-Medrol) 40 mg IVP Q6HR [facility] Last Admin: 09/06/17 11:35 Dose: 40 mg Mometasone Furoate/Formoterol Fumar (Dulera 200 Mcg/5 Mcg Inhaler) 2 puff INH BID-RT [facility] Last Admin: 09/06/17 07:50 Dose: 2 puff Montelukast Sodium (Singulair) 10 mg PO HS [facility] Last Admin: 09/05/17 20:56 Dose: 10 mg Nebivolol (Bystolic) 2.5 mg PO DAILY [facility] Last Admin: 09/06/17 08:20 Dose: 2.5 mg Ondansetron HCl (Zofran Odt) 4 mg PO Q6H PRN PRN Reason: Nausea/Vomiting Ondansetron HCl (Zofran) 4 mg IVP Q6H PRN PRN Reason: Nausea/Vomiting Sodium Chloride (Flush - Normal Saline) 10 ml IVF Q12HR [facility] Last Admin: 09/06/17 08:21 Dose: 10 ml Sodium Chloride (Flush - Normal Saline) 10 ml IVF PRN PRN PRN Reason: Saline Flush
[2017-09-06] MEDS: Sodium Chloride 0.9% 1,000 ML IV SCH (14:55)
[2017-09-06] MEDS: Montelukast Sodium 10 mg Tablet PO SCH (20:01)
[2017-09-06] MEDS: Acetaminophen ER (8hr) 650 MG TAB PO PRN (20:40)
[2017-09-07] MEDS: Ipratropium Bromide 2.5 ml Neb NEB SCH ×4 (00:02→19:40)
[2017-09-07] MEDS: Gabapentin 300 MG CAP PO SCH ×5 (00:17→23:57)
[2017-09-07] MEDS: HYDROcodone/Acetaminophen 5/325 mg Tablet PO PRN (00:55)
[2017-09-07] MEDS: Lidocaine 4% Topical Sol 50 ML BOT TOP PRN (00:56)
[2017-09-07 03:42] LABS: %Basophils 0.3 % (0.0-1.0); %Eosinophils 0.8 % (0.0-10.0); %Lymphocytes 4.3 % (21.0-51.0); %Monocytes 2.2 % (0.0-10.0); %Neutrophils 92.4 % (42.0-75.0); Hemoglobin 11.7 g/dL (12.0-16.0); Mean Corpuscular HGB CONC 32.2 g/dL (32.0-36.0); Mean Corpuscular Hemoglobin 30.6 pg (27.0-31.0); Mean Corpuscular Volume 95.3 fl (81.0-99.0); Mean Platelet Volume 7.6 fL (7.4-10.4); Platelet Count 297 thou/uL (130-400); Red Blood Cell (RBC) Count 3.82 mill/uL (4.20-5.40); White Blood Cell (WBC) Count 12.3 thou/uL (4.8-10.8)
[2017-09-07 03:43] LABS: #Eosinphils 0.1 thou/uL (0.0-0.7); #Lymphocytes 0.5 thou/uL (1.20-3.40); #Monocytes 0.3 thou/uL (0.11-0.59); #Neutrophils 11.4 thou/uL (1.40-6.50)
[2017-09-07 05:56] LABS: Anion Gap 9 mmol/L (10-20); BUN (Urea Nitrogen) 17 mg/dL (9.8-20.1); Calc. Creatinine Clearance 89 mL/min (70-130); Calcium 8.6 mg/dL (7.8-10.44); Carbon Dioxide 34 mmol/L (23-31); Chloride 100 mmol/L (98-107); Estimated GFR-MDRD Greater than 90; Glucose 280 mg/dL (80-115); Sodium 139 mmol/L (136-145)
[2017-09-07] MEDS: Mometasone/Formoterol 120 PUFF INHALER INH SCH ×2 (06:01→19:54)
[2017-09-07] MEDS: Levalbuterol HCl 0.63 MG/3 ML NEB NEB SCH ×4 (06:01→19:40)
[2017-09-07] MEDS: HumaLOG 300 UNITS/3 ML VIAL SC PRN ×4 (06:05→21:03)
[2017-09-07] MEDS: Digoxin 0.125 MG TAB PO SCH (08:49)
[2017-09-07] MEDS: Apixaban 5 MG TAB PO SCH ×2 (08:49→21:02)
[2017-09-07] MEDS: Insulin Detemir 100 UNITS/ML 20 UNITS in Pre-Filled Syringe 1 EACH SC SCH (08:49)
[2017-09-07] MEDS: Flecainide 50 MG TAB PO SCH ×2 (08:49→21:02)
[2017-09-07] MEDS: Nebivolol HCl 2.5 MG TAB PO SCH (08:49)
[2017-09-07] MEDS: Docusate 100 MG CAP PO SCH ×2 (08:50→21:01)
[2017-09-07] MEDS: cycloSPORINE 0.05% Ophthalmic Droperette EA EYE SCH ×2 (08:50→21:03)
[2017-09-07] MEDS: Famotidine 20 MG TAB PO SCH ×2 (08:50→21:02)
--- NOTE | 2017-09-07 16:53 | PDOC.PN ---
- Subjective Encounter Start Date: 09/07/17 Encounter Start Time: 10:20 Pt seen for followup re: acute respiratory failure. Feels better. - Objective Resuscitation Status: Resuscitation Status DNI:No Intubation MAR Reviewed: Yes Vital Signs & Weight: Vital Signs (12 hours) Temp Pulse Pulse Pulse Resp BP BP 09/07/17 16:00 97.8 F 100 18 09/07/17 15:16 101 H 101 H 129/74 137/69 09/07/17 15:00 97 18 09/07/17 11:32 98.6 F 98 20 09/07/17 08:49 93 09/07/17 08:00 97.6 F 93 20 09/07/17 07:00 09/07/17 06:24 09/07/17 06:01 78 16 BP Pulse Ox Pulse Ox Pulse Ox 09/07/17 16:00 137/69 100 09/07/17 15:16 98 100 09/07/17 15:00 97 09/07/17 11:32 117/76 100 09/07/17 08:49 09/07/17 08:00 125/72 100 09/07/17 07:00 125/72 09/07/17 06:24 97 09/07/17 06:01 97 Weight Admit Weight 120 lb 9 oz Weight 119 lb 12.8 oz I&O: 09/06/17 09/07/17 09/08/17 06:59 06:59 06:59 Intake Total 3300 2000 Output Total 3250 3700 Balance 50 -1700 Result Diagrams: 09/07/17 03:25 09/07/17 05:10 Additional Labs: Accuchecks 09/07/17 09/06/17 10:58 20:06 POC Glucose 302 H 267 H EKG Reviewed by me: Yes (Tele: NSR) Phys Exam - Physical Examination Constitutional: NAD HEENT: moist MMs Neck: supple Decreased air entry R base Cardiovascular: RRR Gastrointestinal: soft Neurological: moves all 4 limbs Psychiatric: normal affect Skin: no rash Dx/Plan (1) Acute respiratory failure with hypoxia and hypercapnia Code(s): J96.01 - ACUTE RESPIRATORY FAILURE WITH HYPOXIA; J96.02 - ACUTE RESPIRATORY FAILURE WITH HYPERCAPNIA Status: Acute (2) CAP (community acquired pneumonia) Code(s): J18.9 - PNEUMONIA, UNSPECIFIED ORGANISM Status: Acute (3) COPD (chronic obstructive pulmonary disease) Status: Acute - Plan continue antibiotics, out of bed/ambulate * . Pt clinically improving. Likely close to transfer out of [facility]. Review of Systems - Review of Systems Respiratory: Cough, SOB with Excertion. negative: Dry, Shortness of Breath, Hemoptysis, Pleuritic Pain, Sputum, Wheezing Cardiovascular: negative: chest pain, palpitations, orthopnea, paroxysmal nocturnal dyspnea, edema, light headedness - Medications/Allergies Allergies/Adverse Reactions: Allergies Allergy/AdvReac Type Severity Reaction Status Date / Time Sulfa (Sulfonamide Allergy Verified 09/04/17 00:24 Antibiotics) Medications: Current Medications Acetaminophen (Tylenol) 650 mg HI Q4H PRN PRN Reason: Headache/Fever or Pain Acetaminophen (Tylenol Er (8hr Arthritis Pain)) 650 mg PO QID PRN PRN Reason: Pain Last Admin: 09/06/17 20:40 Dose: 650 mg Hydrocodone Bitart/Acetaminophen ([place] 5/325) 1 tab PO Q6H PRN PRN Reason: Pain Last Admin: 09/07/17 00:55 Dose: 1 tab Albuterol Sulfate (Proventil Hfa) 2 puff INH Q6H PRN PRN Reason: SOB &/or Wheezing Albuterol/Ipratropium (Duoneb) 3 ml NEB [id number] PRN PRN Reason: SOB &/or Wheezing Alendronate Sodium (Fosamax) 70 mg PO Q7D@0600 [facility] Apixaban (Eliquis) 2.5 mg PO BID [facility] Last Admin: 09/07/17 08:49 Dose: 2.5 mg Bisacodyl (Dulcolax) 10 mg PO DAILYPRN PRN PRN Reason: Constipation Cholecalciferol (Vitamin D3) 1,000 units PO DAILY [facility] Last Admin: 09/07/17 08:49 Dose: 1,000 units Cyclosporine (Restasis) 0.4 ml EA EYE BID [facility] Last Admin: 09/07/17 08:50 Dose: Not Given Dextrose/Water (Dextrose 50%) 25 gm IVP PRN PRN PRN Reason: HYPOGLYCEMIA PROTOCOL Digoxin (Lanoxin) 0.125 mg PO DAILY [facility] Last Admin: 09/07/17 08:49 Dose: 0.125 mg Digoxin (Lanoxin) 0.125 mg PO DAILY PRN PRN Reason: To Control Heart Rate Diltiazem HCl (Cardizem Cd) 180 mg PO DAILY [facility] Last Admin: 09/07/17 08:49 Dose: 180 mg Docusate Sodium (Colace) 100 mg PO BID [facility] Last Admin: 09/07/17 08:50 Dose: 100 mg Famotidine (Pepcid) 20 mg PO BID [facility] Last Admin: 09/07/17 08:50 Dose: 20 mg Flecainide Acetate (Tambocor) 50 mg PO BID [facility] Last Admin: 09/07/17 08:49 Dose: 50 mg Gabapentin (Neurontin) 600 mg PO Q6HR [facility] Last Admin: 09/07/17 11:58 Dose: 600 mg Glucagon (Glucagon) 1 mg IM PRN PRN PRN Reason: HYPOGLYCEMIA PROTOCOL Guaifenesin/Dextromethorphan (Robitussin Dm) 15 ml PO Q4H PRN PRN Reason: Cough Levofloxacin 750 mg/ Device 150 mls @ 100 mls/hr IVPB 1700 [facility] Last Admin: 09/06/17 17:55 Dose: 150 mls Dextrose/Water (D5w) 1,000 mls @ 0 mls/hr IV INF PRN; As Directed PRN Reason: HYPOGLYCEMIA PROTOCOL Insulin Detemir 20 units/ (Miscellaneous Medication) 0.2 mls @ 0 mls/hr SC QAM [facility] Last Admin: 09/07/17 08:49 Dose: 0.2 mls Insulin Human Lispro (Humalog) 0 units SC .AGGRESSIVE SLIDING PRN; Protocol PRN Reason: AGGRESSIVE SLIDING SCALE Last Admin: 09/07/17 11:59 Dose: 11 unit Insulin Human Lispro (Humalog) 0 units SC .BEDTIME SLIDING SC PRN; Protocol PRN Reason: BEDTIME SLIDING SCALE Last Admin: 09/06/17 20:08 Dose: 3 unit Ipratropium [place] (Atrovent) 2.5 ml NEB [id number] [facility] Last Admin: 09/07/17 15:00 Dose: 2.5 ml Levalbuterol HCl (Xopenex) 0.63 mg NEB [id number] [facility] Last Admin: 09/07/17 15:00 Dose: 0.63 mg Lidocaine HCl (Xylocaine 4% Topical Sharon) 0 ml TOP BID PRN PRN Reason: Topical Anesthetic Last Admin: 09/07/17 00:56 Dose: 1 applic Lorazepam (Ativan) 0.5 mg PO Q4H PRN PRN Reason: Anxiety Last Admin: 09/06/17 20:01 Dose: 0.5 mg Methylprednisolone Sodium Succinate (Solu-Medrol) 40 mg IVP Q6HR [facility] Last Admin: 09/07/17 11:59 Dose: 40 mg Mometasone Furoate/Formoterol Fumar (Dulera 200 Mcg/5 Mcg Inhaler) 2 puff INH BID-RT [facility] Last Admin: 09/07/17 06:01 Dose: 2 puff Montelukast Sodium (Singulair) 10 mg PO HS [facility] Last Admin: 09/06/17 20:01 Dose: 10 mg Nebivolol (Bystolic) 2.5 mg PO DAILY [facility] Last Admin: 09/07/17 08:49 Dose: 2.5 mg Ondansetron HCl (Zofran Odt) 4 mg PO Q6H PRN PRN Reason: Nausea/Vomiting Ondansetron HCl (Zofran) 4 mg IVP Q6H PRN PRN Reason: Nausea/Vomiting Sodium Chloride (Flush - Normal Saline) 10 ml IVF Q12HR [facility] Last Admin: 09/07/17 08:50 Dose: 10 ml Sodium Chloride (Flush - Normal Saline) 10 ml IVF PRN PRN PRN Reason: Saline Flush
[2017-09-07] MEDS: Montelukast Sodium 10 mg Tablet PO SCH (21:02)
[2017-09-07] MEDS: Lorazepam 0.5 MG TAB PO PRN (21:38)
[2017-09-08] MEDS: Ipratropium Bromide 2.5 ml Neb NEB SCH ×3 (00:42→15:30)
[2017-09-08 04:42] LABS: #Lymphocytes 0.4 thou/uL (1.20-3.40); #Monocytes 0.3 thou/uL (0.11-0.59); #Neutrophils 8.9 thou/uL (1.40-6.50); %Basophils 0.4 % (0.0-1.0); %Eosinophils 0.2 % (0.0-10.0); %Lymphocytes 4.2 % (21.0-51.0); %Monocytes 2.6 % (0.0-10.0); %Neutrophils 92.5 % (42.0-75.0); Hemoglobin 12.7 g/dL (12.0-16.0); Mean Corpuscular HGB CONC 31.2 g/dL (32.0-36.0); Mean Corpuscular Hemoglobin 29.8 pg (27.0-31.0); Mean Corpuscular Volume 95.3 fl (81.0-99.0); Mean Platelet Volume 7.2 fL (7.4-10.4); Platelet Count 312 thou/uL (130-400); RBC Distribution Width 12.8 % (11.5-14.5); Red Blood Cell (RBC) Count 4.26 mill/uL (4.20-5.40); White Blood Cell (WBC) Count 9.6 thou/uL (4.8-10.8)
[2017-09-08 05:05] LABS: Anion Gap 11 mmol/L (10-20); BUN (Urea Nitrogen) 20 mg/dL (9.8-20.1); Calc. Creatinine Clearance 84 mL/min (70-130); Calcium 9.1 mg/dL (7.8-10.44); Carbon Dioxide 37 mmol/L (23-31); Chloride 97 mmol/L (98-107); Estimated GFR-MDRD Greater than 90; Glucose 260 mg/dL (80-115); Sodium 141 mmol/L (136-145)
[2017-09-08] MEDS: Gabapentin 300 MG CAP PO SCH ×4 (05:54→23:37)
[2017-09-08] MEDS: HumaLOG 300 UNITS/3 ML VIAL SC PRN ×3 (05:59→17:35)
[2017-09-08] MEDS: Lidocaine 4% Topical Sol 50 ML BOT TOP PRN (06:23)
[2017-09-08] MEDS: Apixaban 5 MG TAB PO SCH ×2 (08:16→20:18)
[2017-09-08] MEDS: Nebivolol HCl 2.5 MG TAB PO SCH (08:17)
[2017-09-08] MEDS: Insulin Detemir 100 UNITS/ML 20 UNITS in Pre-Filled Syringe 1 EACH SC SCH (08:17)
[2017-09-08] MEDS: Digoxin 0.125 MG TAB PO SCH (08:17)
[2017-09-08] MEDS: Famotidine 20 MG TAB PO SCH ×2 (08:17→20:18)
[2017-09-08] MEDS: Flecainide 50 MG TAB PO SCH ×2 (08:17→20:17)
[2017-09-08] MEDS: Docusate 100 MG CAP PO SCH ×2 (08:17→20:18)
[2017-09-08] MEDS: cycloSPORINE 0.05% Ophthalmic Droperette EA EYE SCH ×2 (08:18→20:20)
[2017-09-08] MEDS: Levalbuterol HCl 0.63 MG/3 ML NEB NEB SCH ×2 (09:12→15:29)
[2017-09-08] MEDS: Mometasone/Formoterol 120 PUFF INHALER INH SCH ×2 (09:15→20:02)
--- NOTE | 2017-09-08 12:25 | CON ---
DATE OF CONSULTATION: 09/08/2017 Cierra Gutierrez is a 62-year-old female who normally seeks care at [facility]. She has been here in the hospital since 09/03/2017. We are being consulted today regarding her pulmonary status. The patient is a longtime smoker, although she says she has quit smoking now for a period of time. N ormally she seeks care at [facility], but because of her acute respiratory distress she was pooja t into [facility]. X-ray shows a right-sided infiltrate and pleural effusion. It appears to be new. Her oxygen saturat ion was low. The patient says she does not want to be intubated as per the previous ER note. In the ER, she received neb treatments, steroids and apparently epinephrine. It was felt she might have had a mucus plug. Since admission, she has been on antibiotics, neb treat ments, steroids, still having difficulty breathing. On most days, she can walk maybe a couple hundre d feet without getting markedly short of breath. She lives alone. She has no other family members. She has no children. PAST MEDICAL HISTORY: 1. Pertinent for acute myelogenous leukemia, status post bone marrow transplant. 2. History of coronary artery disease. 3. History of cardiac arrhythmias. 4. Diabetes. 5. History of bronchopulmonary aspergillosis. 6. Chronic obstructive pulmonary disease. 7. Asthma. PAST SURGICAL HISTORY: Include right mastectomy. A bone marrow transplant. ALLERGIES: SULFA. SOCIAL/FAMILY HISTORY: She has smoked until 2003. Apparently no alcohol or drug abuse. I reviewed all medical records extensively. Otherwise, nothing additionally obtained. MEDICATIONS: List of medicine from home has included insulin, prednisone 10, Spiriva once a day, dig oxin 0.125, Bystolic 2.5, Xopenex, Cardizem-CD 180, Eliquis 2.5, Neurontin 300, Symbicort, Ventolin, Singulair 10, Ativan and Fosamax. ALLERGIES: SULFA. FAMILY HISTORY: Otherwise, family history is unremarkable. SOCIAL HISTORY: Unremarkable. REVIEW OF SYSTEMS: Otherwise, 10-point negative. PHYSICAL EXAMINATION: VITAL SIGNS: Sats are 96 on 3 liters, pulse 88, temperature 98. Blood pressure 122/76. CHEST: Chest revealed bilateral rhonchi and crackles. CARDIAC: Normal S1, S2, no gallops. ABDOMEN: Soft, no masses. NEUROLOGIC: Awake, alert, responsive. LABORATORY DATA: White count 9000, H&H 12 and 40, platelet count is 312. Electrolytes are normal. Glucose 284. X-ray as noted shows a new right basilar pleural parenchymal infiltrate concerning for pleural effusi on. I reviewed all the x-rays and reports as noted. All medical records reviewed. Lab all reviewed. IMPRESSION: 1. Acute on chronic respiratory failure. 2. History of bronchopulmonary aspergillosis. 3. History of acute myelogenous leukemia, status post transplant. 4. History of breast cancer. 5. History of atrial fibrillation. 6. Severe deconditioning. 7. Chronic pain. PLAN: I am concerned about the x-ray. I am going to order a CT to rule out pleural effusion. Other galvez, continue steroids, nebulizer treatments. Further recommendations above-mentioned. This is 70 minutes of my time spent, half of the time spent with the patient care.
--- NOTE | 2017-09-08 14:16 | CT ---
CT CHEST NONCONTRAST: History: Dyspnea. Right effusion. FINDINGS: Soft tissue density material fills the right middle and lower lobe bronchi. Scarring and atelectasis are present throughout the right middle and lower lobes. There is a small amount of right pleural flu id. A 0.3 cm nodule is present at the right lung apex. Peripheral density along the anterior aspect of th e right middle lobe measures up to 2.3 cm greatest diameter. A 2.1 cm wedge shaped peripheral parench ymal infiltrate is at the far anterolateral margin of the right lower lobe. A 1.2 cm irregular nodule is evident at the medial aspect of the right middle lobe. Lack of contrast limits evaluation of the mediastinum. There is calcification in the arterial structu res. IMPRESSION: 1. Soft tissue density filling the bronchi of the right lower lobe and right middle lobe. Neoplasm ve rsus mucous plugging are primary considerations. Please consider bronchoscopic evaluation. 2. There is parenchymal opacity throughout the right lung, including some mass like configurations. I f these are not well explained by other clinical findings, radionuclide PET scan could be used to diaz luate for hypermetabolic activity. 3. Small right pleural effusion. 4. Atherosclerosis. POS: [facility]
--- NOTE | 2017-09-08 17:48 | PDOC.PN ---
- Subjective Encounter Start Date: 09/08/17 Encounter Start Time: 09:40 Pt seen for followup re: acute respiratory failure. Feels better today. - Objective Resuscitation Status: Resuscitation Status DNI:No Intubation MAR Reviewed: Yes Vital Signs & Weight: Vital Signs (12 hours) Temp Pulse Pulse Pulse Resp BP BP 09/08/17 16:00 99.1 F 87 20 09/08/17 15:20 90 16 09/08/17 12:00 97.8 F 104 H 20 09/08/17 10:22 98 95 113/59 L 122/72 09/08/17 09:12 89 16 09/08/17 08:17 92 09/08/17 08:00 98.8 F 89 16 09/08/17 07:43 98.8 F 92 18 09/08/17 07:40 98.8 F 92 18 BP Pulse Ox Pulse Ox Pulse Ox 09/08/17 16:00 133/66 100 09/08/17 15:20 95 09/08/17 12:00 113/59 L 89 L 09/08/17 10:22 96 95 09/08/17 09:12 96 09/08/17 08:17 09/08/17 08:00 96 09/08/17 07:43 122/72 100 09/08/17 07:40 122/72 100 Weight Admit Weight 120 lb 9 oz Weight 120 lb 8 oz I&O: 09/07/17 09/08/17 09/09/17 06:59 06:59 06:59 Intake Total 2000 760 Output Total 3700 1900 Balance -1700 -1140 Result Diagrams: 09/08/17 03:43 09/08/17 03:43 Additional Labs: Accuchecks 09/08/17 09/08/17 09/08/17 16:57 11:21 06:00 POC Glucose 185 H 243 H 264 H 09/07/17 09/07/17 21:02 06:06 POC Glucose 272 H 270 H EKG Reviewed by me: Yes (Tele: NSR) Phys Exam - Physical Examination Constitutional: NAD HEENT: moist MMs Neck: supple Diminished air entry R base Cardiovascular: RRR Gastrointestinal: soft Neurological: moves all 4 limbs Psychiatric: normal affect Dx/Plan (1) Acute respiratory failure with hypoxia and hypercapnia Code(s): J96.01 - ACUTE RESPIRATORY FAILURE WITH HYPOXIA; J96.02 - ACUTE RESPIRATORY FAILURE WITH HYPERCAPNIA Status: Acute (2) CAP (community acquired pneumonia) Code(s): J18.9 - PNEUMONIA, UNSPECIFIED ORGANISM Status: Acute (3) COPD (chronic obstructive pulmonary disease) Status: Chronic - Plan continue antibiotics, out of bed/ambulate * . Continue oxygen, steroids, antibiotics. Review of Systems - Review of Systems Respiratory: Cough, SOB with Excertion, Sputum Cardiovascular: negative: chest pain, palpitations, orthopnea, paroxysmal nocturnal dyspnea, edema, light headedness - Medications/Allergies Allergies/Adverse Reactions: Allergies Allergy/AdvReac Type Severity Reaction Status Date / Time Sulfa (Sulfonamide Allergy Verified 09/04/17 00:24 Antibiotics) Medications: Current Medications Acetaminophen (Tylenol) 650 mg FL Q4H PRN PRN Reason: Headache/Fever or Pain Acetaminophen (Tylenol Er (8hr Arthritis Pain)) 650 mg PO QID PRN PRN Reason: Pain Last Admin: 09/06/17 20:40 Dose: 650 mg Hydrocodone Bitart/Acetaminophen ([place] 5/325) 1 tab PO Q6H PRN PRN Reason: Pain Last Admin: 09/07/17 00:55 Dose: 1 tab Albuterol Sulfate (Proventil Hfa) 2 puff INH Q6H PRN PRN Reason: SOB &/or Wheezing Albuterol/Ipratropium (Duoneb) 3 ml NEB [id number] Albuterol/Ipratropium (Duoneb) 3 ml NEB Q4H PRN PRN Reason: SOB &/or Wheezing Alendronate Sodium (Fosamax) 70 mg PO Q7D@0600 [facility] Apixaban (Eliquis) 2.5 mg PO BID [facility] Last Admin: 09/08/17 08:16 Dose: 2.5 mg Bisacodyl (Dulcolax) 10 mg PO DAILYPRN PRN PRN Reason: Constipation Last Admin: 09/07/17 17:41 Dose: 10 mg Cholecalciferol (Vitamin D3) 1,000 units PO DAILY [facility] Last Admin: 09/08/17 08:17 Dose: 1,000 units Cyclosporine (Restasis) 0.4 ml EA EYE BID [facility] Last Admin: 09/08/17 08:18 Dose: Not Given Dextrose/Water (Dextrose 50%) 25 gm IVP PRN PRN PRN Reason: HYPOGLYCEMIA PROTOCOL Digoxin (Lanoxin) 0.125 mg PO DAILY [facility] Last Admin: 09/08/17 08:17 Dose: 0.125 mg Digoxin (Lanoxin) 0.125 mg PO DAILY PRN PRN Reason: To Control Heart Rate Diltiazem HCl (Cardizem Cd) 180 mg PO DAILY [facility] Last Admin: 09/08/17 08:17 Dose: 180 mg Docusate Sodium (Colace) 100 mg PO BID [facility] Last Admin: 09/08/17 08:17 Dose: 100 mg Famotidine (Pepcid) 20 mg PO BID [facility] Last Admin: 09/08/17 08:17 Dose: 20 mg Flecainide Acetate (Tambocor) 50 mg PO BID [facility] Last Admin: 09/08/17 08:17 Dose: 50 mg Gabapentin (Neurontin) 600 mg PO Q6HR [facility] Last Admin: 09/08/17 17:35 Dose: 600 mg Glucagon (Glucagon) 1 mg IM PRN PRN PRN Reason: HYPOGLYCEMIA PROTOCOL Guaifenesin/Dextromethorphan (Robitussin Dm) 15 ml PO Q4H PRN PRN Reason: Cough Levofloxacin 750 mg/ Device 150 mls @ 100 mls/hr IVPB 1700 [facility] Last Admin: 09/08/17 17:35 Dose: 150 mls Dextrose/Water (D5w) 1,000 mls @ 0 mls/hr IV INF PRN; As Directed PRN Reason: HYPOGLYCEMIA PROTOCOL Insulin Detemir 20 units/ (Miscellaneous Medication) 0.2 mls @ 0 mls/hr SC QAM [facility] Last Admin: 09/08/17 08:17 Dose: 0.2 mls Insulin Human Lispro (Humalog) 0 units SC .AGGRESSIVE SLIDING PRN; Protocol PRN Reason: AGGRESSIVE SLIDING SCALE Last Admin: 09/08/17 17:35 Dose: 3 unit Insulin Human Lispro (Humalog) 0 units SC .BEDTIME SLIDING SC PRN; Protocol PRN Reason: BEDTIME SLIDING SCALE Last Admin: 09/07/17 21:03 Dose: 3 unit Lidocaine HCl (Xylocaine 4% Topical [place]) 0 ml TOP BID PRN PRN Reason: Topical Anesthetic Last Admin: 09/08/17 06:23 Dose: 1 applic Lorazepam (Ativan) 0.5 mg PO Q4H PRN PRN Reason: Anxiety Last Admin: 09/07/17 21:38 Dose: 0.5 mg Methylprednisolone Sodium Succinate (Solu-Medrol) 40 mg IVP Q6HR [facility] Last Admin: 09/08/17 17:35 Dose: 40 mg Mometasone Furoate/Formoterol Fumar (Dulera 200 Mcg/5 Mcg Inhaler) 2 puff INH BID-RT [facility] Last Admin: 09/08/17 09:15 Dose: 2 puff Montelukast Sodium (Singulair) 10 mg PO HS [facility] Last Admin: 09/07/17 21:02 Dose: 10 mg Nebivolol (Bystolic) 2.5 mg PO DAILY [facility] Last Admin: 09/08/17 08:17 Dose: 2.5 mg Ondansetron HCl (Zofran Odt) 4 mg PO Q6H PRN PRN Reason: Nausea/Vomiting Ondansetron HCl (Zofran) 4 mg IVP Q6H PRN PRN Reason: Nausea/Vomiting Sodium Chloride (Flush - Normal Saline) 10 ml IVF Q12HR [facility] Last Admin: 09/08/17 08:18 Dose: 10 ml Sodium Chloride (Flush - Normal Saline) 10 ml IVF PRN PRN PRN Reason: Saline Flush
[2017-09-08] MEDS: Montelukast Sodium 10 mg Tablet PO SCH (20:17)
[2017-09-09] MEDS: HYDROcodone/Acetaminophen 5/325 mg Tablet PO PRN ×2 (00:24→23:48)
[2017-09-09] MEDS: Lorazepam 0.5 MG TAB PO PRN ×2 (01:58→17:09)
[2017-09-09] MEDS: Acetaminophen ER (8hr) 650 MG TAB PO PRN (03:39)
[2017-09-09] MEDS: Gabapentin 300 MG CAP PO SCH ×4 (06:05→23:48)
[2017-09-09] MEDS: HumaLOG 300 UNITS/3 ML VIAL SC PRN ×4 (06:09→20:12)
[2017-09-09] MEDS: Flecainide 50 MG TAB PO SCH ×2 (08:11→20:11)
[2017-09-09] MEDS: Famotidine 20 MG TAB PO SCH ×2 (08:11→20:11)
[2017-09-09] MEDS: Apixaban 5 MG TAB PO SCH ×2 (08:11→20:11)
[2017-09-09] MEDS: Digoxin 0.125 MG TAB PO SCH (08:12)
[2017-09-09] MEDS: Docusate 100 MG CAP PO SCH ×2 (08:13→20:11)
[2017-09-09] MEDS: cycloSPORINE 0.05% Ophthalmic Droperette EA EYE SCH ×2 (08:13→20:12)
[2017-09-09] MEDS: Nebivolol HCl 2.5 MG TAB PO SCH (08:13)
[2017-09-09] MEDS: Insulin Detemir 100 UNITS/ML 20 UNITS in Pre-Filled Syringe 1 EACH SC SCH (08:13)
[2017-09-09] MEDS: Mometasone/Formoterol 120 PUFF INHALER INH SCH ×2 (08:44→18:59)
--- NOTE | 2017-09-09 09:41 | PRG ---
DATE OF SERVICE: 09/09/2017 This morning she is better, less short of breath, still coughing a lot of sputum. CAT scan showed so me kind of right middle lobe mucus plugging atelectatic area. There is no significant pleural effusion. PHYSICAL EXAMINATION: VITAL SIGNS: Sats 94% on 4 liters, temperature 97, blood pressure 120/75. CHEST: Bilateral rhonchi, wheezing. CARDIAC: Normal S1-S2. No gallops. ABDOMEN: Soft. No masses. IMPRESSION: 1. Right lower lobe atelectasis, pleural effusion, pneumonia, improved. 2. Severe chronic obstructive pulmonary disease. PLAN: Continue antibiotics, nebulizer treatments, steroids. She could transfer out of the [facility].
--- NOTE | 2017-09-09 15:43 | PDOC.PN ---
- Subjective Encounter Start Date: 09/09/17 Encounter Start Time: 09:20 Pt seen for followup re: acute respiratory failure. Feels better today. No chest pain. SOBOE better. - Objective Resuscitation Status: Resuscitation Status DNI:No Intubation MAR Reviewed: Yes Vital Signs & Weight: Vital Signs (12 hours) Temp Pulse Resp BP Pulse Ox 09/09/17 14:34 101 H 22 H 92 L 09/09/17 11:22 97.6 F 92 18 138/71 93 L 09/09/17 08:43 97 20 94 L 09/09/17 08:12 87 09/09/17 08:00 97.5 F L 87 19 99 09/09/17 07:45 97.5 F L 87 19 121/75 99 09/09/17 04:00 97 18 121/73 98 Weight Admit Weight 120 lb 9 oz Weight 119 lb I&O: 09/08/17 09/09/17 09/10/17 06:59 06:59 06:59 Intake Total 760 1230 Output Total 1900 1850 Balance -1140 -620 Result Diagrams: 09/08/17 03:43 09/08/17 03:43 Additional Labs: Accuchecks 09/09/17 09/09/17 09/08/17 10:29 06:10 20:18 POC Glucose 311 H 415 H 130 H 09/08/17 16:57 POC Glucose 185 H EKG Reviewed by me: Yes (Tele: NSR) Phys Exam - Physical Examination Constitutional: NAD HEENT: moist MMs Neck: supple Respiratory: clear to auscultation bilateral Cardiovascular: RRR Gastrointestinal: soft Neurological: moves all 4 limbs Psychiatric: normal affect Dx/Plan (1) Acute respiratory failure with hypoxia and hypercapnia Code(s): J96.01 - ACUTE RESPIRATORY FAILURE WITH HYPOXIA; J96.02 - ACUTE RESPIRATORY FAILURE WITH HYPERCAPNIA Status: Acute (2) CAP (community acquired pneumonia) Code(s): J18.9 - PNEUMONIA, UNSPECIFIED ORGANISM Status: Acute (3) COPD (chronic obstructive pulmonary disease) Status: Chronic - Plan continue antibiotics, PT/OT, out of bed/ambulate * . Continue oxygen, steroids, antibiotics, bronchodilatora. Appreciate pulmonology input. Review of Systems - Review of Systems Constitutional: negative: fever, chills, sweats, weakness, malaise Respiratory: Cough, SOB with Excertion, Sputum - Medications/Allergies Allergies/Adverse Reactions: Allergies Allergy/AdvReac Type Severity Reaction Status Date / Time Sulfa (Sulfonamide Allergy Verified 09/04/17 00:24 Antibiotics) Medications: Current Medications Acetaminophen (Tylenol) 650 mg HI Q4H PRN PRN Reason: Headache/Fever or Pain Acetaminophen (Tylenol Er (8hr Arthritis Pain)) 650 mg PO QID PRN PRN Reason: Pain Last Admin: 09/09/17 03:39 Dose: 650 mg Hydrocodone Bitart/Acetaminophen ([place] 5/325) 1 tab PO Q6H PRN PRN Reason: Pain Last Admin: 09/09/17 00:24 Dose: 1 tab Albuterol Sulfate (Proventil Hfa) 2 puff INH Q6H PRN PRN Reason: SOB &/or Wheezing Albuterol/Ipratropium (Duoneb) 3 ml NEB [id number] [facility] Last Admin: 09/09/17 14:34 Dose: 3 ml Albuterol/Ipratropium (Duoneb) 3 ml NEB Q4H PRN PRN Reason: SOB &/or Wheezing Alendronate Sodium (Fosamax) 70 mg PO Q7D@0600 [facility] Apixaban (Eliquis) 2.5 mg PO BID [facility] Last Admin: 09/09/17 08:11 Dose: 2.5 mg Bisacodyl (Dulcolax) 10 mg PO DAILYPRN PRN PRN Reason: Constipation Last Admin: 09/07/17 17:41 Dose: 10 mg Cholecalciferol (Vitamin D3) 1,000 units PO DAILY [facility] Last Admin: 09/09/17 08:13 Dose: 1,000 units Cyclosporine (Restasis) 0.4 ml EA EYE BID [facility] Last Admin: 09/09/17 08:13 Dose: Not Given Dextrose/Water (Dextrose 50%) 25 gm IVP PRN PRN PRN Reason: HYPOGLYCEMIA PROTOCOL Digoxin (Lanoxin) 0.125 mg PO DAILY [facility] Last Admin: 09/09/17 08:12 Dose: 0.125 mg Digoxin (Lanoxin) 0.125 mg PO DAILY PRN PRN Reason: To Control Heart Rate Diltiazem HCl (Cardizem Cd) 180 mg PO DAILY [facility] Last Admin: 09/09/17 08:13 Dose: 180 mg Docusate Sodium (Colace) 100 mg PO BID [facility] Last Admin: 09/09/17 08:13 Dose: Not Given Famotidine (Pepcid) 20 mg PO BID [facility] Last Admin: 09/09/17 08:11 Dose: 20 mg Flecainide Acetate (Tambocor) 50 mg PO BID [facility] Last Admin: 09/09/17 08:11 Dose: 50 mg Gabapentin (Neurontin) 600 mg PO Q6HR [facility] Last Admin: 09/09/17 11:28 Dose: 600 mg Glucagon (Glucagon) 1 mg IM PRN PRN PRN Reason: HYPOGLYCEMIA PROTOCOL Guaifenesin/Dextromethorphan (Robitussin Dm) 15 ml PO Q4H PRN PRN Reason: Cough Levofloxacin 750 mg/ Device 150 mls @ 100 mls/hr IVPB 1700 [facility] Last Admin: 09/08/17 17:35 Dose: 150 mls Dextrose/Water (D5w) 1,000 mls @ 0 mls/hr IV INF PRN; As Directed PRN Reason: HYPOGLYCEMIA PROTOCOL Insulin Detemir 20 units/ (Miscellaneous Medication) 0.2 mls @ 0 mls/hr SC QAM [facility] Last Admin: 09/09/17 08:13 Dose: 0.2 mls Insulin Human Lispro (Humalog) 0 units SC .AGGRESSIVE SLIDING PRN; Protocol PRN Reason: AGGRESSIVE SLIDING SCALE Last Admin: 09/09/17 11:31 Dose: 11 unit Insulin Human Lispro (Humalog) 0 units SC .BEDTIME SLIDING SC PRN; Protocol PRN Reason: BEDTIME SLIDING SCALE Last Admin: 09/07/17 21:03 Dose: 3 unit Lidocaine HCl (Xylocaine 4% Topical Sharon) 0 ml TOP BID PRN PRN Reason: Topical Anesthetic Last Admin: 09/08/17 06:23 Dose: 1 applic Lorazepam (Ativan) 0.5 mg PO Q4H PRN PRN Reason: Anxiety Last Admin: 09/09/17 01:58 Dose: 0.5 mg Methylprednisolone Sodium Succinate (Solu-Medrol) 40 mg IVP Q6HR [facility] Last Admin: 09/09/17 11:28 Dose: 40 mg Mometasone Furoate/Formoterol Fumar (Dulera 200 Mcg/5 Mcg Inhaler) 2 puff INH BID-RT [facility] Last Admin: 09/09/17 08:44 Dose: 2 puff Montelukast Sodium (Singulair) 10 mg PO HS [facility] Last Admin: 09/08/17 20:17 Dose: 10 mg Nebivolol (Bystolic) 2.5 mg PO DAILY [facility] Last Admin: 09/09/17 08:13 Dose: 2.5 mg Ondansetron HCl (Zofran Odt) 4 mg PO Q6H PRN PRN Reason: Nausea/Vomiting Ondansetron HCl (Zofran) 4 mg IVP Q6H PRN PRN Reason: Nausea/Vomiting Sodium Chloride (Flush - Normal Saline) 10 ml IVF Q12HR [facility] Last Admin: 09/09/17 08:13 Dose: 10 ml Sodium Chloride (Flush - Normal Saline) 10 ml IVF PRN PRN PRN Reason: Saline Flush
[2017-09-09] MEDS ORDERED: Lidocaine 4% PF 5 ML AMP NEB SCH (16:30)
[2017-09-09] MEDS ORDERED: Sodium Chloride 0.9% 1,000 ML IV SCH (16:30)
[2017-09-09] MEDS: Montelukast Sodium 10 mg Tablet PO SCH (20:11)
[2017-09-10 04:55] LABS: Hemoglobin 11.4 g/dL (12.0-16.0); Platelet Count 297 thou/uL (130-400)
[2017-09-10 05:14] LABS: Calc. Creatinine Clearance 81 mL/min (70-130); Estimated GFR-MDRD Greater than 90
[2017-09-10] MEDS: Gabapentin 300 MG CAP PO SCH ×4 (06:18→23:48)
[2017-09-10] MEDS: Lidocaine 4% Topical Sol 50 ML BOT TOP PRN ×2 (08:27→20:38)
[2017-09-10] MEDS ORDERED: Lidocaine 1% (PF) 30 ML VIAL ONE (08:59)
[2017-09-10] MEDS ORDERED: EPINEPHrine 1 MG/10 ML Abboject SYRINGE ONE (09:00)
[2017-09-10] MEDS ORDERED: Midazolam HCl 2 mg/2 ml Vial IVP SCH (09:15)
[2017-09-10] MEDS: Apixaban 5 MG TAB PO SCH ×2 (10:55→20:37)
[2017-09-10] MEDS: Docusate 100 MG CAP PO SCH ×2 (10:58→20:37)
[2017-09-10] MEDS: Digoxin 0.125 MG TAB PO SCH (10:58)
[2017-09-10] MEDS: Insulin Detemir 100 UNITS/ML 20 UNITS in Pre-Filled Syringe 1 EACH SC SCH (10:59)
[2017-09-10] MEDS: Flecainide 50 MG TAB PO SCH ×2 (10:59→20:37)
[2017-09-10] MEDS: Famotidine 20 MG TAB PO SCH ×2 (10:59→20:37)
[2017-09-10] MEDS: Nebivolol HCl 2.5 MG TAB PO SCH (11:01)
[2017-09-10] MEDS: cycloSPORINE 0.05% Ophthalmic Droperette EA EYE SCH ×2 (11:02→20:38)
--- NOTE | 2017-09-10 11:02 | OP ---
DATE OF PROCEDURE: 09/10/2017 SURGEON: Dr. Kevin Dacosta PROCEDURE: Bronchoscopy. INDICATIONS: Right lung atelectasis, mass. 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 After informed consented the patient was given Cetacaine spray, 1% of Versed during the procedure, sh e will be monitored in a monitored bed. The right nostril was prepped with lidocaine jelly. The flexible video bronchoscope was then passed via the nostril. Pharynx, upper pharynx, and vocal cords were visualized, unremarkable. The trachea , josé antonio sharp. Right lung was inspected initially. There was a large necrotic mass occluding the r ight mainstem bronchus. I was unable to visualize any of the segments, either the upper lobe bronchu s or the bronchus intermedius not visualized. This area was lavaged with normal saline, a total of 40 mL. Multiple biopsies were obtained. Brushi ngs were obtained. There was some bleeding, which was controlled with epinephrine, a total of 10 mL of 1:10,000. The left lung was inspected which was unremarkable. The washings sent for cytology, brushings sent for histopathology. The patient tolerated the procedure well. Results will be made available to the patient and family. Further recommendations after above.
[2017-09-10] MEDS: Mometasone/Formoterol 120 PUFF INHALER INH SCH ×2 (14:29→18:47)
--- NOTE | 2017-09-10 16:05 | PDOC.PN ---
- Subjective Encounter Start Date: 09/10/17 Encounter Start Time: 09:20 Pt seen for followup re: acute respiratory failure. Had bronchoscopy, feels okay now. Reports painful lesions in genitalia. - Objective Resuscitation Status: Resuscitation Status DNI:No Intubation MAR Reviewed: Yes Vital Signs & Weight: Vital Signs (12 hours) Temp Pulse Resp Pulse Ox 09/10/17 14:22 101 H 24 H 98 09/10/17 10:58 119 H 09/10/17 09:28 102 H 09/10/17 08:12 98.0 F 114 H 21 H 92 L Weight Admit Weight 120 lb 9 oz Weight 117 lb 2 oz I&O: 09/09/17 09/10/17 09/11/17 06:59 06:59 06:59 Intake Total 1230 1955 Output Total 1850 1000 Balance -620 955 Result Diagrams: 09/10/17 04:28 09/10/17 04:28 Additional Labs: Accuchecks 09/10/17 09/10/17 09/09/17 11:11 06:20 20:11 POC Glucose 269 H 253 H 230 H EKG Reviewed by me: Yes (Tele: NSR) Phys Exam - Physical Examination Constitutional: NAD HEENT: moist MMs Neck: supple Respiratory: clear to auscultation bilateral Cardiovascular: RRR Gastrointestinal: soft Neurological: moves all 4 limbs Psychiatric: normal affect Dx/Plan (1) Acute respiratory failure with hypoxia and hypercapnia Code(s): J96.01 - ACUTE RESPIRATORY FAILURE WITH HYPOXIA; J96.02 - ACUTE RESPIRATORY FAILURE WITH HYPERCAPNIA Status: Acute (2) CAP (community acquired pneumonia) Code(s): J18.9 - PNEUMONIA, UNSPECIFIED ORGANISM Status: Acute (3) COPD (chronic obstructive pulmonary disease) Status: Chronic - Plan continue antibiotics, PT/OT, out of bed/ambulate * . Pt does not want a genital exam, reports she had genital herpes in the past, was treated wityh valacyclovir in past. Explained to the pt risks vs benefits of exam, including the possibility of missing other types of lesions without an exam, as well as prescribing antivirals blindly (with attendant side effects). Pt is making an informed decision not to have a genital exam, and would like to start antiviral therapy. s/p bronchoscopy today, will await path report. Continue oxygen, steroids and antibiotics. Review of Systems - Review of Systems Respiratory: Cough, Sputum. negative: Dry, Shortness of Breath, Hemoptysis, SOB with Excertion, Pleuritic Pain, Wheezing - Medications/Allergies Allergies/Adverse Reactions: Allergies Allergy/AdvReac Type Severity Reaction Status Date / Time Sulfa (Sulfonamide Allergy Verified 09/04/17 00:24 Antibiotics) Medications: Current Medications Acetaminophen (Tylenol) 650 mg [place] Q4H PRN PRN Reason: Headache/Fever or Pain Acetaminophen (Tylenol Er (8hr Arthritis Pain)) 650 mg PO QID PRN PRN Reason: Pain Last Admin: 09/09/17 03:39 Dose: 650 mg Hydrocodone Bitart/Acetaminophen ([place] 5/325) 1 tab PO Q6H PRN PRN Reason: Pain Last Admin: 09/09/17 23:48 Dose: 1 tab Albuterol Sulfate (Proventil Hfa) 2 puff INH Q6H PRN PRN Reason: SOB &/or Wheezing Albuterol/Ipratropium (Duoneb) 3 ml NEB [id number] [facility] Last Admin: 09/10/17 14:22 Dose: 3 ml Albuterol/Ipratropium (Duoneb) 3 ml NEB Q4H PRN PRN Reason: SOB &/or Wheezing Albuterol/Ipratropium (Duoneb) 3 ml NEB WILLCALL [facility] Stop: 09/10/17 16:31 Alendronate Sodium (Fosamax) 70 mg PO Q7D@0600 [facility] Apixaban (Eliquis) 2.5 mg PO BID [facility] Last Admin: 09/10/17 10:55 Dose: 2.5 mg Bisacodyl (Dulcolax) 10 mg PO DAILYPRN PRN PRN Reason: Constipation Last Admin: 09/07/17 17:41 Dose: 10 mg Cefdinir (Omnicef) 300 mg PO BID [facility] Cholecalciferol (Vitamin D3) 1,000 units PO DAILY [facility] Last Admin: 09/10/17 10:57 Dose: 1,000 units Cyclosporine (Restasis) 0.4 ml EA EYE BID [facility] Last Admin: 09/10/17 11:02 Dose: Not Given Dextrose/Water (Dextrose 50%) 25 gm IVP PRN PRN PRN Reason: HYPOGLYCEMIA PROTOCOL Digoxin (Lanoxin) 0.125 mg PO DAILY [facility] Last Admin: 09/10/17 10:58 Dose: 0.125 mg Digoxin (Lanoxin) 0.125 mg PO DAILY PRN PRN Reason: To Control Heart Rate Diltiazem HCl (Cardizem Cd) 180 mg PO DAILY [facility] Last Admin: 09/10/17 10:58 Dose: 180 mg Docusate Sodium (Colace) 100 mg PO BID [facility] Last Admin: 09/10/17 10:58 Dose: 100 mg Famotidine (Pepcid) 20 mg PO BID [facility] Last Admin: 09/10/17 10:59 Dose: 20 mg Flecainide Acetate (Tambocor) 50 mg PO BID [facility] Last Admin: 09/10/17 10:59 Dose: 50 mg Gabapentin (Neurontin) 600 mg PO Q6HR [facility] Last Admin: 09/10/17 11:03 Dose: 600 mg Glucagon (Glucagon) 1 mg IM PRN PRN PRN Reason: HYPOGLYCEMIA PROTOCOL Guaifenesin/Dextromethorphan (Robitussin Dm) 15 ml PO Q4H PRN PRN Reason: Cough Dextrose/Water (D5w) 1,000 mls @ 0 mls/hr IV INF PRN; As Directed PRN Reason: HYPOGLYCEMIA PROTOCOL Insulin Detemir 20 units/ (Miscellaneous Medication) 0.2 mls @ 0 mls/[facility] [place] Last Admin: 09/10/17 10:59 Dose: 0.2 mls Insulin Human Lispro (Humalog) 0 units SC .AGGRESSIVE SLIDING PRN; Protocol PRN Reason: AGGRESSIVE SLIDING SCALE Last Admin: 09/09/17 17:12 Dose: 11 unit Insulin Human Lispro (Humalog) 0 units SC .BEDTIME SLIDING SC PRN; Protocol PRN Reason: BEDTIME SLIDING SCALE Last Admin: 09/09/17 20:12 Dose: 2 unit Lidocaine HCl (Xylocaine 4% Topical Sharon) 0 ml TOP BID PRN PRN Reason: Topical Anesthetic Last Admin: 09/10/17 08:27 Dose: 1 applic Lidocaine HCl (Xylocaine 4% Pf) 5 ml NEB WILLCALL [facility] Stop: 09/10/17 16:31 Last Admin: 09/10/17 09:29 Dose: 5 ml Mometasone Furoate/Formoterol Fumar (Dulera 200 Mcg/5 Mcg Inhaler) 2 puff INH BID-RT [facility] Last Admin: 09/10/17 14:29 Dose: Not Given Montelukast Sodium (Singulair) 10 mg PO HS [facility] Last Admin: 09/09/17 20:11 Dose: 10 mg Nebivolol (Bystolic) 2.5 mg PO DAILY [facility] Last Admin: 09/10/17 11:01 Dose: 2.5 mg Ondansetron HCl (Zofran Odt) 4 mg PO Q6H PRN PRN Reason: Nausea/Vomiting Ondansetron HCl (Zofran) 4 mg IVP Q6H PRN PRN Reason: Nausea/Vomiting Prednisone (Prednisone) 20 mg PO BID [facility] Sodium Chloride (Flush - Normal Saline) 10 ml IVF Q12HR [facility] Last Admin: 09/10/17 11:02 Dose: Not Given Sodium Chloride (Flush - Normal Saline) 10 ml IVF PRN PRN PRN Reason: Saline Flush Valacyclovir HCl (Valtrex) 500 mg PO Q24HR [facility] Stop: 09/12/17 11:01
[2017-09-10] MEDS: valACYclovir 500 MG TAB PO SCH (16:15)
[2017-09-10] MEDS: HYDROcodone/Acetaminophen 5/325 mg Tablet PO PRN (16:15)
[2017-09-10] MEDS: HumaLOG 300 UNITS/3 ML VIAL SC PRN ×2 (17:45→20:36)
[2017-09-10] MEDS: Cefdinir 300 MG CAP PO SCH (20:37)
[2017-09-10] MEDS: predniSONE 20 MG TAB PO SCH (20:37)
[2017-09-10] MEDS: Montelukast Sodium 10 mg Tablet PO SCH (20:37)
[2017-09-11] MEDS: HYDROcodone/Acetaminophen 5/325 mg Tablet PO PRN ×2 (00:31→23:59)
[2017-09-11] MEDS: Acetaminophen ER (8hr) 650 MG TAB PO PRN ×2 (04:04→09:42)
[2017-09-11] MEDS: Gabapentin 300 MG CAP PO SCH ×4 (06:04→23:59)
[2017-09-11] MEDS: Alendronate Sodium 70 mg Tablet PO SCH (06:04)
[2017-09-11] MEDS: HumaLOG 300 UNITS/3 ML VIAL SC PRN ×4 (06:04→20:58)
[2017-09-11] MEDS: Flecainide 50 MG TAB PO SCH ×2 (09:38→20:57)
[2017-09-11] MEDS: Docusate 100 MG CAP PO SCH ×2 (09:38→20:57)
[2017-09-11] MEDS: Cefdinir 300 MG CAP PO SCH ×2 (09:38→20:57)
[2017-09-11] MEDS: Famotidine 20 MG TAB PO SCH ×2 (09:38→20:57)
[2017-09-11] MEDS: Digoxin 0.125 MG TAB PO SCH (09:39)
[2017-09-11] MEDS: Apixaban 5 MG TAB PO SCH ×2 (09:39→20:57)
[2017-09-11] MEDS: Nebivolol HCl 2.5 MG TAB PO SCH (09:42)
[2017-09-11] MEDS: predniSONE 20 MG TAB PO SCH ×2 (09:42→20:57)
[2017-09-11] MEDS: Insulin Detemir 100 UNITS/ML 20 UNITS in Pre-Filled Syringe 1 EACH SC SCH (09:43)
[2017-09-11] MEDS: Lidocaine 4% Topical Sol 50 ML BOT TOP PRN (09:44)
[2017-09-11] MEDS: cycloSPORINE 0.05% Ophthalmic Droperette EA EYE SCH ×2 (09:44→20:57)
[2017-09-11] MEDS: Mometasone/Formoterol 120 PUFF INHALER INH SCH ×2 (09:51→19:05)
[2017-09-11] MEDS: valACYclovir 500 MG TAB PO SCH (13:22)
--- NOTE | 2017-09-11 15:11 | PDOC.PN ---
- Subjective Encounter Start Date: 09/11/17 Encounter Start Time: 10:00 Pt seen for followup re: acute respiratory failure. No new complaints today. - Objective Resuscitation Status: Resuscitation Status DNI:No Intubation MAR Reviewed: Yes Vital Signs & Weight: Vital Signs (12 hours) Temp Pulse Resp BP Pulse Ox 09/11/17 12:46 89 20 94 L 09/11/17 11:59 97.0 F L 96 20 118/61 94 L 09/11/17 09:52 92 L 09/11/17 09:51 91 20 92 L 09/11/17 09:49 91 21 H 92 L 09/11/17 09:39 79 09/11/17 08:00 98.8 F 79 19 95 09/11/17 07:26 98.8 F 79 19 129/80 95 09/11/17 04:00 98.2 F 91 18 133/86 97 Weight Admit Weight 120 lb 9 oz Weight 116 lb 8 oz I&O: 09/10/17 09/11/17 09/12/17 06:59 06:59 06:59 Intake Total 1955 980 Output Total 1000 1201 Balance 955 -221 Result Diagrams: 09/14/17 05:40 09/14/17 05:40 Additional Labs: Accuchecks 09/11/17 09/11/17 09/10/17 10:33 06:05 20:37 POC Glucose 261 H 170 H 271 H 09/10/17 16:44 POC Glucose 472 H EKG Reviewed by me: Yes (Tele: NSR) Phys Exam - Physical Examination Constitutional: NAD HEENT: moist MMs Neck: supple Respiratory: clear to auscultation bilateral Cardiovascular: RRR Gastrointestinal: soft Neurological: moves all 4 limbs Psychiatric: normal affect Dx/Plan (1) Acute respiratory failure with hypoxia and hypercapnia Code(s): J96.01 - ACUTE RESPIRATORY FAILURE WITH HYPOXIA; J96.02 - ACUTE RESPIRATORY FAILURE WITH HYPERCAPNIA Status: Acute (2) CAP (community acquired pneumonia) Code(s): J18.9 - PNEUMONIA, UNSPECIFIED ORGANISM Status: Acute (3) Endobronchial mass Code(s): R22.2 - LOCALIZED SWELLING, MASS AND LUMP, TRUNK Status: Acute (4) COPD (chronic obstructive pulmonary disease) Status: Chronic - Plan continue antibiotics, out of bed/ambulate * . Path report pending. Pt is clinically improving. Review of Systems - Review of Systems Respiratory: Cough, Sputum. negative: Dry, Shortness of Breath, Hemoptysis, SOB with Excertion, Pleuritic Pain, Wheezing Cardiovascular: negative: chest pain, palpitations, orthopnea, paroxysmal nocturnal dyspnea, edema, light headedness - Medications/Allergies Allergies/Adverse Reactions: Allergies Allergy/AdvReac Type Severity Reaction Status Date / Time Sulfa (Sulfonamide Allergy Verified 09/04/17 00:24 Antibiotics) Medications: Current Medications Acetaminophen (Tylenol) [address] Q4H PRN PRN Reason: Headache/Fever or Pain Acetaminophen (Tylenol Er (8hr Arthritis Pain)) 650 mg PO QID PRN PRN Reason: Pain Last Admin: 09/11/17 09:42 Dose: 650 mg Hydrocodone Bitart/Acetaminophen ([place] 5/325) 1 tab PO Q6H PRN PRN Reason: Pain Last Admin: 09/11/17 00:31 Dose: 1 tab Albuterol Sulfate (Proventil Hfa) 2 puff INH Q6H PRN PRN Reason: SOB &/or Wheezing Albuterol/Ipratropium (Duoneb) 3 ml NEB [id number] [facility] Last Admin: 09/11/17 12:46 Dose: 3 ml Albuterol/Ipratropium (Duoneb) 3 ml NEB Q4H PRN PRN Reason: SOB &/or Wheezing Alendronate Sodium (Fosamax) 70 mg PO Q7D@0600 [facility] Last Admin: 09/11/17 06:04 Dose: 70 mg Apixaban (Eliquis) 2.5 mg PO BID [facility] Last Admin: 09/11/17 09:39 Dose: 2.5 mg Bisacodyl (Dulcolax) 10 mg PO DAILYPRN PRN PRN Reason: Constipation Last Admin: 09/07/17 17:41 Dose: 10 mg Cefdinir (Omnicef) 300 mg PO BID [facility] Last Admin: 09/11/17 09:38 Dose: 300 mg Cholecalciferol (Vitamin D3) 1,000 units PO DAILY [facility] Last Admin: 09/11/17 09:38 Dose: 1,000 units Cyclosporine (Restasis) 0.4 ml EA EYE BID [facility] Last Admin: 09/11/17 09:44 Dose: Not Given Dextrose/Water (Dextrose 50%) 25 gm IVP PRN PRN PRN Reason: HYPOGLYCEMIA PROTOCOL Digoxin (Lanoxin) 0.125 mg PO DAILY [facility] Last Admin: 09/11/17 09:39 Dose: 0.125 mg Digoxin (Lanoxin) 0.125 mg PO DAILY PRN PRN Reason: To Control Heart Rate Diltiazem HCl (Cardizem Cd) 180 mg PO DAILY [facility] Last Admin: 09/11/17 09:42 Dose: 180 mg Docusate Sodium (Colace) 100 mg PO BID [facility] Last Admin: 09/11/17 09:38 Dose: 100 mg Famotidine (Pepcid) 20 mg PO BID [facility] Last Admin: 09/11/17 09:38 Dose: 20 mg Flecainide Acetate (Tambocor) 50 mg PO BID [facility] Last Admin: 09/11/17 09:38 Dose: 50 mg Gabapentin (Neurontin) 600 mg PO Q6HR [facility] Last Admin: 09/11/17 13:22 Dose: 600 mg Glucagon (Glucagon) 1 mg IM PRN PRN PRN Reason: HYPOGLYCEMIA PROTOCOL Guaifenesin/Dextromethorphan (Robitussin Dm) 15 ml PO Q4H PRN PRN Reason: Cough Dextrose/Water (D5w) 1,000 mls @ 0 mls/hr IV INF PRN; As Directed PRN Reason: HYPOGLYCEMIA PROTOCOL Insulin Detemir 20 units/ (Miscellaneous Medication) 0.2 mls @ 0 mls/hr SC QAM [facility] Last Admin: 09/11/17 09:43 Dose: 0.2 mls Insulin Human Lispro (Humalog) 0 units SC .AGGRESSIVE SLIDING PRN; Protocol PRN Reason: AGGRESSIVE SLIDING SCALE Last Admin: 09/11/17 10:30 Dose: 9 unit Insulin Human Lispro (Humalog) 0 units SC .BEDTIME SLIDING SC PRN; Protocol PRN Reason: BEDTIME SLIDING SCALE Last Admin: 09/10/17 20:36 Dose: 3 unit Lidocaine HCl (Xylocaine 4% Topical Sharon) 0 ml TOP BID PRN PRN Reason: Topical Anesthetic Last Admin: 09/11/17 09:44 Dose: 1 applic Mometasone Furoate/Formoterol Fumar (Dulera 200 Mcg/5 Mcg Inhaler) 2 puff INH BID-RT [facility] Last Admin: 09/11/17 09:51 Dose: 2 puff Montelukast Sodium (Singulair) 10 mg PO HS [facility] Last Admin: 09/10/17 20:37 Dose: 10 mg Nebivolol (Bystolic) 2.5 mg PO DAILY [facility] Last Admin: 09/11/17 09:42 Dose: 2.5 mg Ondansetron HCl (Zofran Odt) 4 mg PO Q6H PRN PRN Reason: Nausea/Vomiting Ondansetron HCl (Zofran) 4 mg IVP Q6H PRN PRN Reason: Nausea/Vomiting Prednisone (Prednisone) 20 mg PO BID [facility] Last Admin: 09/11/17 09:42 Dose: 20 mg Sodium Chloride (Flush - Normal Saline) 10 ml IVF Q12HR [facility] Last Admin: 09/11/17 09:45 Dose: 10 ml Sodium Chloride (Flush - Normal Saline) 10 ml IVF PRN PRN PRN Reason: Saline Flush Valacyclovir HCl (Valtrex) 500 mg PO Q24HR [facility] Stop: 09/12/17 11:01 Last Admin: 09/11/17 13:22 Dose: 500 mg
--- NOTE | 2017-09-11 15:31 | PRG ---
DATE OF SERVICE: 09/11/2017 She is awake, alert, responsive. She has some vague chest pain, but no shortness of breath. She is coughing, no blood. PHYSICAL EXAMINATION: VITAL SIGNS: Temperature 98, pulse 79, respirations 19, sats 95% on 3 liters, blood pressure 120/80. CHEST: Chest reveals bilateral rhonchi and crackles. CARDIAC: Normal S1, S2. ABDOMEN: Soft, no masses. IMPRESSION: 1. Right mainstem mass, bronchogenic carcinoma. 2. Severe chronic obstructive pulmonary disease. 3. Chronic pain. 4. Long-term Eliquis. PLAN: Awaiting . In the meantime continue steroids, supportive care. I will follow.
[2017-09-11] MEDS: Montelukast Sodium 10 mg Tablet PO SCH (20:57)
[2017-09-12] MEDS: Lidocaine 4% Topical Sol 50 ML BOT TOP PRN
[2017-09-12 04:36] LABS: Hemoglobin 13.3 g/dL (12.0-16.0); Platelet Count 325 thou/uL (130-400)
[2017-09-12 05:11] LABS: Calc. Creatinine Clearance 78 mL/min (70-130); Estimated GFR-MDRD Greater than 90
[2017-09-12] MEDS: Gabapentin 300 MG CAP PO SCH ×4 (06:13→23:51)
[2017-09-12] MEDS: HumaLOG 300 UNITS/3 ML VIAL SC PRN ×4 (06:14→20:16)
[2017-09-12] MEDS: Mometasone/Formoterol 120 PUFF INHALER INH SCH ×2 (07:51→19:04)
[2017-09-12] MEDS: Apixaban 5 MG TAB PO SCH ×2 (08:14→20:14)
[2017-09-12] MEDS: Flecainide 50 MG TAB PO SCH ×2 (08:16→20:14)
[2017-09-12] MEDS: Cefdinir 300 MG CAP PO SCH ×2 (08:16→20:14)
[2017-09-12] MEDS: Nebivolol HCl 2.5 MG TAB PO SCH (08:16)
[2017-09-12] MEDS: Famotidine 20 MG TAB PO SCH ×2 (08:16→20:14)
[2017-09-12] MEDS: Digoxin 0.125 MG TAB PO SCH (08:17)
[2017-09-12] MEDS: predniSONE 20 MG TAB PO SCH ×2 (08:17→20:15)
[2017-09-12] MEDS: Insulin Detemir 100 UNITS/ML 20 UNITS in Pre-Filled Syringe 1 EACH SC SCH (08:18)
[2017-09-12] MEDS: cycloSPORINE 0.05% Ophthalmic Droperette EA EYE SCH ×2 (08:22→20:15)
[2017-09-12] MEDS: Docusate 100 MG CAP PO SCH ×2 (08:24→20:15)
[2017-09-12] MEDS: Acetaminophen ER (8hr) 650 MG TAB PO PRN (11:57)
[2017-09-12] MEDS: valACYclovir 500 MG TAB PO SCH (11:57)
--- NOTE | 2017-09-12 16:37 | PDOC.PN ---
- Subjective Encounter Start Date: 09/12/17 Encounter Start Time: 09:00 Pt seen for followup re: acute respiratory failure. No chest pain, breathing better. - Objective Resuscitation Status: Resuscitation Status DNI:No Intubation MAR Reviewed: Yes Vital Signs & Weight: Vital Signs (12 hours) Temp Pulse Resp BP Pulse Ox 09/12/17 15:00 98.4 F 92 20 97/54 L 98 09/12/17 13:58 90 20 95 09/12/17 11:00 97.9 F 88 22 H 94/64 98 09/12/17 08:17 78 09/12/17 08:00 97.9 F 81 20 99 09/12/17 07:51 78 20 100 09/12/17 07:41 100 09/12/17 07:40 78 20 100 09/12/17 07:00 97.9 F 81 20 109/67 99 Weight Admit Weight 120 lb 9 oz Weight 115 lb 7 oz I&O: 09/11/17 09/12/17 09/13/17 06:59 06:59 06:59 Intake Total 980 2160 Output Total 1201 3050 Balance -221 -890 Result Diagrams: 09/12/17 04:06 09/12/17 04:06 Additional Labs: Accuchecks 09/12/17 09/12/17 09/12/17 16:21 10:25 06:15 POC Glucose 238 H 300 H 245 H 09/11/17 20:57 POC Glucose 278 H Phys Exam - Physical Examination Constitutional: NAD HEENT: moist MMs Neck: supple Respiratory: clear to auscultation bilateral Cardiovascular: RRR Gastrointestinal: soft Neurological: moves all 4 limbs Psychiatric: normal affect Dx/Plan (1) Acute respiratory failure with hypoxia and hypercapnia Code(s): J96.01 - ACUTE RESPIRATORY FAILURE WITH HYPOXIA; J96.02 - ACUTE RESPIRATORY FAILURE WITH HYPERCAPNIA Status: Acute (2) CAP (community acquired pneumonia) Code(s): J18.9 - PNEUMONIA, UNSPECIFIED ORGANISM Status: Acute (3) Endobronchial mass Code(s): R22.2 - LOCALIZED SWELLING, MASS AND LUMP, TRUNK Status: Acute (4) COPD (chronic obstructive pulmonary disease) Status: Chronic - Plan continue antibiotics, PT/OT, out of bed/ambulate * . Continue oxygen, steroids. Monitor vital signs, titrate antihypertensives as needed. Review of Systems - Review of Systems Constitutional: negative: fever, chills, sweats, weakness, malaise Respiratory: Cough, Dry - Medications/Allergies Allergies/Adverse Reactions: Allergies Allergy/AdvReac Type Severity Reaction Status Date / Time Sulfa (Sulfonamide Allergy Verified 09/04/17 00:24 Antibiotics) Medications: Current Medications Acetaminophen (Tylenol) 650 mg NE Q4H PRN PRN Reason: Headache/Fever or Pain Acetaminophen (Tylenol Er (8hr Arthritis Pain)) 650 mg PO QID PRN PRN Reason: Pain Last Admin: 09/12/17 11:57 Dose: 650 mg Hydrocodone Bitart/Acetaminophen ([place] 5/325) 1 tab PO Q6H PRN PRN Reason: Pain Last Admin: 09/11/17 23:59 Dose: 1 tab Albuterol Sulfate (Proventil Hfa) 2 puff INH Q6H PRN PRN Reason: SOB &/or Wheezing Albuterol/Ipratropium (Duoneb) 3 ml EZPAP [id number] [facility] Alendronate Sodium (Fosamax) 70 mg PO Q7D@0600 [facility] Last Admin: 09/11/17 06:04 Dose: 70 mg Apixaban (Eliquis) 2.5 mg PO BID [facility] Last Admin: 09/12/17 08:14 Dose: 2.5 mg Bisacodyl (Dulcolax) 10 mg PO DAILYPRN PRN PRN Reason: Constipation Last Admin: 09/07/17 17:41 Dose: 10 mg Cefdinir (Omnicef) 300 mg PO BID [facility] Last Admin: 09/12/17 08:16 Dose: 300 mg Cholecalciferol (Vitamin D3) 1,000 units PO DAILY [facility] Last Admin: 09/12/17 08:15 Dose: 1,000 units Cyclosporine (Restasis) 0.4 ml EA EYE BID [facility] Last Admin: 09/12/17 08:22 Dose: Not Given Dextrose/Water (Dextrose 50%) 25 gm IVP PRN PRN PRN Reason: HYPOGLYCEMIA PROTOCOL Digoxin (Lanoxin) 0.125 mg PO DAILY [facility] Last Admin: 09/12/17 08:17 Dose: 0.125 mg Digoxin (Lanoxin) 0.125 mg PO DAILY PRN PRN Reason: To Control Heart Rate Diltiazem HCl (Cardizem Cd) 180 mg PO DAILY [facility] Last Admin: 09/12/17 08:15 Dose: 180 mg Docusate Sodium (Colace) 100 mg PO BID [facility] Last Admin: 09/12/17 08:24 Dose: Not Given Famotidine (Pepcid) 20 mg PO BID [facility] Last Admin: 09/12/17 08:16 Dose: 20 mg Flecainide Acetate (Tambocor) 50 mg PO BID [facility] Last Admin: 09/12/17 08:16 Dose: 50 mg Gabapentin (Neurontin) 600 mg PO Q6HR [facility] Last Admin: 09/12/17 11:57 Dose: 600 mg Glucagon (Glucagon) 1 mg IM PRN PRN PRN Reason: HYPOGLYCEMIA PROTOCOL Dextrose/Water (D5w) 1,000 mls @ 0 mls/hr IV INF PRN; As Directed PRN Reason: HYPOGLYCEMIA PROTOCOL Insulin Detemir 20 units/ (Miscellaneous Medication) 0.2 mls @ 0 mls/hr SC QAM [facility] Last Admin: 09/12/17 08:18 Dose: 0.2 mls Insulin Human Lispro (Humalog) 0 units SC .AGGRESSIVE SLIDING PRN; Protocol PRN Reason: AGGRESSIVE SLIDING SCALE Last Admin: 09/12/17 11:56 Dose: 11 unit Insulin Human Lispro (Humalog) 0 units SC .BEDTIME SLIDING SC PRN; Protocol PRN Reason: BEDTIME SLIDING SCALE Last Admin: 09/11/17 20:58 Dose: 3 unit Lidocaine HCl (Xylocaine 4% Topical Sharon) 0 ml TOP BID PRN PRN Reason: Topical Anesthetic Last Admin: 09/12/17 00:00 Dose: 1 applic Mometasone Furoate/Formoterol Fumar (Dulera 200 Mcg/5 Mcg Inhaler) 2 puff INH BID-RT [facility] Last Admin: 09/12/17 07:51 Dose: 2 puff Montelukast Sodium (Singulair) 10 mg PO HS [facility] Last Admin: 09/11/17 20:57 Dose: 10 mg Nebivolol (Bystolic) 2.5 mg PO DAILY [facility] Last Admin: 09/12/17 08:16 Dose: 2.5 mg Ondansetron HCl (Zofran Odt) 4 mg PO Q6H PRN PRN Reason: Nausea/Vomiting Ondansetron HCl (Zofran) 4 mg IVP Q6H PRN PRN Reason: Nausea/Vomiting Prednisone (Prednisone) 20 mg PO BID [facility] Last Admin: 09/12/17 08:17 Dose: 20 mg Sodium Chloride (Flush - Normal Saline) 10 ml IVF Q12HR [facility] Last Admin: 09/12/17 08:22 Dose: Not Given Sodium Chloride (Flush - Normal Saline) 10 ml IVF PRN PRN PRN Reason: Saline Flush
--- NOTE | 2017-09-12 17:10 | PRG ---
DATE OF SERVICE: 09/12/2017 SERVICE: Pulmonary Medicine. INTERVAL HISTORY: The patient is doing fine from a cardiovascular and respiratory standpoint. She c urrently denies any shortness of breath, fevers, chills, nausea or vomiting. She is wondering what h appened with the results of the bronchoscopy. There are numerous necrotic fragments and reactive bro nchial cells, mucus and abundant bacteria with no evidence of significant malignancy. The right main stem biopsy demonstrated fragments of respiratory mucosa with focal inflammation necrosis and hemorrh age with no visible tumor present. PHYSICAL EXAMINATION: VITAL SIGNS: Afebrile, pulse 88, blood pressure 94/64, respirations 20, saturation 95% on 2 liters n jennyfer cannula. GENERAL: The patient is awake and alert, in no apparent distress. LUNGS: Decreased air entry. There is a prolonged expiratory phase, both crackles and wheezing are p resent. No rhonchi are appreciated. HEART: Normal rate, regular. ABDOMEN: Soft, nontender, nondistended. Bowel sounds are positive. MUSCULOSKELETAL: No cyanosis or clubbing. No pitting in the bilateral lower extremities. NEUROLOGIC: Grossly nonfocal. LABORATORY DATA: Hemoglobin 13.3. Creatinine 0.36. Blood sugars ranged from 245-300. Urinalysis i s unremarkable. Influenza A and B are unremarkable. Blood cultures x2 are negative. Urine culture is also negative. ASSESSMENT: 1. Acute on chronic hypoxic respiratory failure. 2. Mucus plugging. 3. Possible endobronchial mass, though biopsy was unremarkable. 4. Chronic obstructive pulmonary disease with acute exacerbation, severe. 5. Chronic anticoagulation. PLAN: We will continue our antibiotics, steroids, and nebulized medication. We will have to decide on whether or not to proceed with repeat evaluation, with serial imaging studies, or repeat sampling procedure. I will add MetaNeb to the patient's therapy and hopefully over the next 24-48 hours with some good physiotherapy, we will be able to deliberate some mucus plugs. Pulmonary Critical Care chayo l continue to follow while the patient remains in this dislocation.
[2017-09-12] MEDS: Montelukast Sodium 10 mg Tablet PO SCH (20:14)
[2017-09-12] MEDS: HYDROcodone/Acetaminophen 5/325 mg Tablet PO PRN (23:51)
[2017-09-13] MEDS: Acetaminophen ER (8hr) 650 MG TAB PO PRN (04:56)
[2017-09-13] MEDS: Gabapentin 300 MG CAP PO SCH ×3 (04:57→17:35)
[2017-09-13] MEDS: HumaLOG 300 UNITS/3 ML VIAL SC PRN ×3 (06:49→21:01)
[2017-09-13] MEDS: Mometasone/Formoterol 120 PUFF INHALER INH SCH ×2 (08:39→19:43)
[2017-09-13] MEDS: Apixaban 5 MG TAB PO SCH ×2 (08:51→20:32)
[2017-09-13] MEDS: Digoxin 0.125 MG TAB PO SCH (08:52)
[2017-09-13] MEDS: Flecainide 50 MG TAB PO SCH ×2 (08:52→20:34)
[2017-09-13] MEDS: Cefdinir 300 MG CAP PO SCH ×2 (08:52→20:32)
[2017-09-13] MEDS: Docusate 100 MG CAP PO SCH ×2 (08:52→20:33)
[2017-09-13] MEDS: Famotidine 20 MG TAB PO SCH ×2 (08:52→20:33)
[2017-09-13] MEDS: Nebivolol HCl 2.5 MG TAB PO SCH (08:53)
[2017-09-13] MEDS: predniSONE 20 MG TAB PO SCH ×2 (08:53→20:33)
[2017-09-13] MEDS: cycloSPORINE 0.05% Ophthalmic Droperette EA EYE SCH ×2 (08:53→20:31)
[2017-09-13] MEDS: Insulin Detemir 100 UNITS/ML 20 UNITS in Pre-Filled Syringe 1 EACH SC SCH (08:53)
--- NOTE | 2017-09-13 13:54 | PRG ---
DATE OF SERVICE: 09/13/2017 SERVICE: Pulmonary Medicine. INTERVAL HISTORY: The patient is doing really well from respiratory standpoint. She is breathing co mfortably and has no specific complaints. She is using physiotherapy to try to help liberate any spu candi that she may have inside of upper airway. The biopsy results were inconclusive. PHYSICAL EXAMINATION: VITAL SIGNS: Afebrile, pulse 93, blood pressure 123/75, respirations 20, saturation 96% on 2 liters nasal cannula. GENERAL: Patient regular, no apparent distress. LUNGS: Decreased air entry. There is no prolonged expiratory phase or wheezing present. HEART: Normal rate, regular. MUSCULOSKELETAL: No cyanosis or clubbing. There is no pitting in the bilateral lower extremities. NEUROLOGIC: Grossly nonfocal. ASSESSMENT: 1. Acute on chronic hypoxic respiratory failure. 2. Mucus plugging. 3. Possible endobronchial mass. The biopsy was inconclusive. 4. Chronic obstructive pulmonary disease with acute exacerbation. 5. Chronic anticoagulation. PLAN: We will continue supportive care including antibiotics and nebulized medications and steroids. We will continue her physiotherapy twice daily. Hopefully, over the next 24-48 hours, we can liber ate a whole bunch of sputum and our next evaluation with possible bronchoscopy will be different. Dr Brenda Dacosta will assume coverage in the morning. We will work on getting IMC today to the medical unit.
--- NOTE | 2017-09-13 15:49 | PDOC.PN ---
- Subjective Encounter Start Date: 09/13/17 Encounter Start Time: 15:48 Pt seen for followup re: acute respiratory failure. Feels better. Still has cough, red-tinged sputum. - Objective Resuscitation Status: Resuscitation Status DNI:No Intubation MAR Reviewed: Yes Vital Signs & Weight: Vital Signs (12 hours) Temp Pulse Resp BP BP Pulse Ox 09/13/17 15:45 97.7 F 91 18 111/52 L 94 L 09/13/17 11:54 93 24 H 98 09/13/17 11:37 98.3 F 88 20 123/75 96 09/13/17 09:50 106 H 24 H 98 09/13/17 08:52 84 09/13/17 08:39 84 24 H 97 09/13/17 08:24 97 09/13/17 08:22 84 24 H 97 09/13/17 07:43 98.0 F 83 18 100 09/13/17 07:33 98.0 F 83 18 120/62 99 09/13/17 03:50 98.3 F 89 20 96/48 L 100 Weight Admit Weight 120 lb 9 oz Weight 114 lb 9 oz I&O: 09/12/17 09/13/17 09/14/17 06:59 06:59 06:59 Intake Total 2160 1770 Output Total 3050 1750 Balance -890 20 Result Diagrams: 09/12/17 04:06 09/12/17 04:06 Additional Labs: Accuchecks 09/13/17 09/13/17 09/13/17 15:23 10:51 06:36 POC Glucose 358 H 184 H 258 H 09/12/17 09/12/17 19:56 16:21 POC Glucose 270 H 238 H EKG Reviewed by me: Yes (Tele: NSR) Phys Exam - Physical Examination Constitutional: NAD HEENT: moist MMs Neck: supple Respiratory: clear to auscultation bilateral Cardiovascular: RRR Gastrointestinal: soft Neurological: moves all 4 limbs Psychiatric: normal affect Dx/Plan (1) Acute respiratory failure with hypoxia and hypercapnia Code(s): J96.01 - ACUTE RESPIRATORY FAILURE WITH HYPOXIA; J96.02 - ACUTE RESPIRATORY FAILURE WITH HYPERCAPNIA Status: Acute (2) CAP (community acquired pneumonia) Code(s): J18.9 - PNEUMONIA, UNSPECIFIED ORGANISM Status: Acute (3) Endobronchial mass Code(s): R22.2 - LOCALIZED SWELLING, MASS AND LUMP, TRUNK Status: Acute (4) COPD (chronic obstructive pulmonary disease) Status: Chronic - Plan continue antibiotics, PT/OT, out of bed/ambulate * . Pathology inconclusive for malignancy. Continue oxygen, antibiotics and steroids. Review of Systems - Review of Systems Constitutional: negative: fever, chills, sweats, weakness, malaise Respiratory: Cough, Sputum. negative: Dry, Shortness of Breath, Hemoptysis, SOB with Excertion, Pleuritic Pain, Wheezing Skin: negative: Rash, Lesions, Devan, Bruising - Medications/Allergies Allergies/Adverse Reactions: Allergies Allergy/AdvReac Type Severity Reaction Status Date / Time Sulfa (Sulfonamide Allergy Verified 09/04/17 00:24 Antibiotics) Medications: Current Medications Acetaminophen (Tylenol) 650 mg VA Q4H PRN PRN Reason: Headache/Fever or Pain Acetaminophen (Tylenol Er (8hr Arthritis Pain)) 650 mg PO QID PRN PRN Reason: Pain Last Admin: 09/13/17 04:56 Dose: 650 mg Hydrocodone Bitart/Acetaminophen ([place] 5/325) 1 tab PO Q6H PRN PRN Reason: Pain Last Admin: 09/12/17 23:51 Dose: 1 tab Albuterol Sulfate (Proventil Hfa) 2 puff INH Q6H PRN PRN Reason: SOB &/or Wheezing Albuterol/Ipratropium (Duoneb) 3 ml EZPAP [id number] [facility] Last Admin: 09/13/17 11:54 Dose: 3 ml Alendronate Sodium (Fosamax) 70 mg PO Q7D@0600 [facility] Last Admin: 09/11/17 06:04 Dose: 70 mg Apixaban (Eliquis) 2.5 mg PO BID [facility] Last Admin: 09/13/17 08:51 Dose: 2.5 mg Bisacodyl (Dulcolax) 10 mg PO DAILYPRN PRN PRN Reason: Constipation Last Admin: 09/07/17 17:41 Dose: 10 mg Cefdinir (Omnicef) 300 mg PO BID [facility] Last Admin: 09/13/17 08:52 Dose: 300 mg Cholecalciferol (Vitamin D3) 1,000 units PO DAILY [facility] Last Admin: 09/13/17 08:52 Dose: 1,000 units Cyclosporine (Restasis) 0.4 ml EA EYE BID [facility] Last Admin: 09/13/17 08:53 Dose: Not Given Dextrose/Water (Dextrose 50%) 25 gm IVP PRN PRN PRN Reason: HYPOGLYCEMIA PROTOCOL Digoxin (Lanoxin) 0.125 mg PO DAILY [facility] Last Admin: 09/13/17 08:52 Dose: 0.125 mg Digoxin (Lanoxin) 0.125 mg PO DAILY PRN PRN Reason: To Control Heart Rate Diltiazem HCl (Cardizem Cd) 180 mg PO DAILY [facility] Last Admin: 09/13/17 08:52 Dose: 180 mg Docusate Sodium (Colace) 100 mg PO BID [facility] Last Admin: 09/13/17 08:52 Dose: 100 mg Famotidine (Pepcid) 20 mg PO BID [facility] Last Admin: 09/13/17 08:52 Dose: 20 mg Flecainide Acetate (Tambocor) 50 mg PO BID [facility] Last Admin: 09/13/17 08:52 Dose: 50 mg Gabapentin (Neurontin) 600 mg PO Q6HR [facility] Last Admin: 09/13/17 11:47 Dose: 600 mg Glucagon (Glucagon) 1 mg IM PRN PRN PRN Reason: HYPOGLYCEMIA PROTOCOL Dextrose/Water (D5w) 1,000 mls @ 0 mls/hr IV INF PRN; As Directed PRN Reason: HYPOGLYCEMIA PROTOCOL Insulin Detemir 20 units/ (Miscellaneous Medication) 0.2 mls @ 0 mls/hr SC QAM [facility] Last Admin: 09/13/17 08:53 Dose: 0.2 mls Insulin Human Lispro (Humalog) 0 units SC .AGGRESSIVE SLIDING PRN; Protocol PRN Reason: AGGRESSIVE SLIDING SCALE Last Admin: 09/13/17 06:49 Dose: 9 unit Insulin Human Lispro (Humalog) 0 units SC .BEDTIME SLIDING SC PRN; Protocol PRN Reason: BEDTIME SLIDING SCALE Last Admin: 09/12/17 20:16 Dose: 3 unit Lidocaine HCl (Xylocaine 4% Topical Sharon) 0 ml TOP BID PRN PRN Reason: Topical Anesthetic Last Admin: 09/12/17 00:00 Dose: 1 applic Mometasone Furoate/Formoterol Fumar (Dulera 200 Mcg/5 Mcg Inhaler) 2 puff INH BID-RT [facility] Last Admin: 09/13/17 08:39 Dose: 2 puff Montelukast Sodium (Singulair) 10 mg PO HS [facility] Last Admin: 09/12/17 20:14 Dose: 10 mg Nebivolol (Bystolic) 2.5 mg PO DAILY [facility] Last Admin: 09/13/17 08:53 Dose: 2.5 mg Ondansetron HCl (Zofran Odt) 4 mg PO Q6H PRN PRN Reason: Nausea/Vomiting Ondansetron HCl (Zofran) 4 mg IVP Q6H PRN PRN Reason: Nausea/Vomiting Prednisone (Prednisone) 20 mg PO BID [facility] Last Admin: 09/13/17 08:53 Dose: 20 mg Sodium Chloride (Flush - Normal Saline) 10 ml IVF Q12HR [facility] Last Admin: 09/13/17 08:53 Dose: 10 ml Sodium Chloride (Flush - Normal Saline) 10 ml IVF PRN PRN PRN Reason: Saline Flush
[2017-09-13] MEDS: Montelukast Sodium 10 mg Tablet PO SCH (20:33)
[2017-09-14] MEDS: Gabapentin 300 MG CAP PO SCH ×5 (00:31→23:25)
[2017-09-14] MEDS: HYDROcodone/Acetaminophen 5/325 mg Tablet PO PRN (01:16)
[2017-09-14] MEDS: Acetaminophen ER (8hr) 650 MG TAB PO PRN ×2 (03:34→23:25)
[2017-09-14 06:01] LABS: Hemoglobin 12.1 g/dL (12.0-16.0); Platelet Count 274 thou/uL (130-400)
[2017-09-14] MEDS: Mometasone/Formoterol 120 PUFF INHALER INH SCH ×2 (06:30→18:19)
[2017-09-14 06:33] LABS: Calc. Creatinine Clearance 77 mL/min (70-130); Estimated GFR-MDRD Greater than 90
[2017-09-14] MEDS: HumaLOG 300 UNITS/3 ML VIAL SC PRN ×4 (06:40→20:50)
[2017-09-14] MEDS: Apixaban 5 MG TAB PO SCH (09:31)
[2017-09-14] MEDS: Cefdinir 300 MG CAP PO SCH ×2 (09:32→20:51)
[2017-09-14] MEDS: Docusate 100 MG CAP PO SCH ×2 (09:34→20:51)
[2017-09-14] MEDS: Digoxin 0.125 MG TAB PO SCH (09:34)
[2017-09-14] MEDS: Flecainide 50 MG TAB PO SCH ×2 (09:35→20:52)
[2017-09-14] MEDS: Famotidine 20 MG TAB PO SCH ×2 (09:35→20:51)
[2017-09-14] MEDS: Insulin Detemir 100 UNITS/ML 20 UNITS in Pre-Filled Syringe 1 EACH SC SCH (09:35)
[2017-09-14] MEDS: Nebivolol HCl 2.5 MG TAB PO SCH (09:36)
[2017-09-14] MEDS: predniSONE 20 MG TAB PO SCH ×2 (09:36→20:52)
[2017-09-14] MEDS: cycloSPORINE 0.05% Ophthalmic Droperette EA EYE SCH ×2 (09:37→20:52)
[2017-09-14] MEDS: Lidocaine 4% Topical Sol 50 ML BOT TOP PRN (09:40)
[2017-09-14] MEDS ORDERED: Lidocaine 4% PF 5 ML AMP NEB SCH (12:00)
--- NOTE | 2017-09-14 12:05 | RAD ---
PA AND LATERAL OF THE CHEST: INDICATIONS: History of pneumonia. COMPARISON: Prior study dated 08/15/2016 and 09/03/2017. FINDINGS: The previously seen opacity and pleural effusion within the right lung base has resolved. 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 Heart size is within normal limits. No acute osseous abnormality is evident. IMPRESSION: Resolution of the previously seen right lower lobe pneumonia and parapneumonic effusion. POS: TRINI
[2017-09-14 14:14] VITALS: BMI 21.4
[2017-09-14] MEDS: Sodium Chloride 0.9% 1,000 ML IV SCH (14:41)
--- NOTE | 2017-09-14 15:10 | PRG ---
DATE OF SERVICE: 09/14/2017 SUBJECTIVE: This morning, awake, alert, responsive. OBJECTIVE: VITAL SIGNS: Sats are 98% on 2 liters, respirations 14, temperature 97, blood pressure 120/63. CHEST : Decreased breath sounds, no wheezing. CARDIAC: Normal S1 and S2. ABDOMEN: Soft. No masses. Results of the bronchial washings and biopsies were negative for carcinoma. 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 I discussed with the patient at length that the biopsy samples are all negative. We could repeat a b ronchoscopy, hold the Eliquis. If she agrees to, we will plan in the next 24-48 hours. IMPRESSION: Lung mass and chronic obstructive pulmonary disease. PLAN: Negative bronch. Antibiotics, steroids, neb treatments, repeat bronchoscopy as per the allen virk
--- NOTE | 2017-09-14 15:39 | PDOC.PN ---
- Subjective Encounter Start Date: 09/14/17 Encounter Start Time: 15:37 Pt seen for followup re: acute respiratory failure. Feels better. Cough better. - Objective Resuscitation Status: Resuscitation Status DNI:No Intubation MAR Reviewed: Yes Vital Signs & Weight: Vital Signs (12 hours) Temp Pulse Resp BP Pulse Ox 09/14/17 15:23 85 20 09/14/17 09:34 78 09/14/17 08:00 97.4 F L 78 14 98 09/14/17 07:05 97.4 F L 83 14 110/63 98 09/14/17 06:29 80 18 Weight Admit Weight 120 lb 9 oz Weight 113 lb 9 oz I&O: 09/13/17 09/14/17 09/15/17 06:59 06:59 06:59 Intake Total 1770 240 Output Total 1750 1200 Balance 20 -960 Result Diagrams: 09/14/17 05:40 09/14/17 05:40 Additional Labs: Accuchecks 09/14/17 09/14/17 09/13/17 11:36 05:40 20:41 POC Glucose 241 H 233 H 273 H Phys Exam - Physical Examination Constitutional: NAD HEENT: moist MMs Neck: supple Respiratory: clear to auscultation bilateral Cardiovascular: RRR Gastrointestinal: soft Musculoskeletal: pulses present Neurological: moves all 4 limbs Psychiatric: normal affect Skin: no rash Dx/Plan (1) Acute respiratory failure with hypoxia and hypercapnia Code(s): J96.01 - ACUTE RESPIRATORY FAILURE WITH HYPOXIA; J96.02 - ACUTE RESPIRATORY FAILURE WITH HYPERCAPNIA Status: Acute (2) CAP (community acquired pneumonia) Code(s): J18.9 - PNEUMONIA, UNSPECIFIED ORGANISM Status: Acute (3) Endobronchial mass Code(s): R22.2 - LOCALIZED SWELLING, MASS AND LUMP, TRUNK Status: Acute (4) COPD (chronic obstructive pulmonary disease) Status: Chronic - Plan continue antibiotics * . Continue oxygen, steroids, bronchodilators. Plan for repeat bronch noted. Review of Systems - Review of Systems Respiratory: Cough, Sputum. negative: Dry, Shortness of Breath, Hemoptysis, SOB with Excertion, Pleuritic Pain, Wheezing - Medications/Allergies Allergies/Adverse Reactions: Allergies Allergy/AdvReac Type Severity Reaction Status Date / Time Sulfa (Sulfonamide Allergy Verified 09/04/17 00:24 Antibiotics) Medications: Current Medications Acetaminophen (Tylenol) 650 mg IN Q4H PRN PRN Reason: Headache/Fever or Pain Acetaminophen (Tylenol Er (8hr Arthritis Pain)) 650 mg PO QID PRN PRN Reason: Pain Last Admin: 09/14/17 03:34 Dose: 650 mg Albuterol Sulfate (Proventil Hfa) 2 puff INH Q6H PRN PRN Reason: SOB &/or Wheezing Albuterol/Ipratropium (Duoneb) 3 ml EZPAP [id number] [facility] Last Admin: 09/14/17 15:23 Dose: 3 ml Albuterol/Ipratropium (Duoneb) 3 ml NEB WILLCALL [facility] Stop: 09/15/17 12:01 Alendronate Sodium (Fosamax) 70 mg PO Q7D@0600 [facility] Last Admin: 09/11/17 06:04 Dose: 70 mg Bisacodyl (Dulcolax) 10 mg PO DAILYPRN PRN PRN Reason: Constipation Last Admin: 09/07/17 17:41 Dose: 10 mg Cefdinir (Omnicef) 300 mg PO BID [facility] Last Admin: 09/14/17 09:32 Dose: 300 mg Cholecalciferol (Vitamin D3) 1,000 units PO DAILY [facility] Last Admin: 09/14/17 09:32 Dose: 1,000 units Cyclosporine (Restasis) 0.4 ml EA EYE BID [facility] Last Admin: 09/14/17 09:37 Dose: Not Given Dextrose/Water (Dextrose 50%) 25 gm IVP PRN PRN PRN Reason: HYPOGLYCEMIA PROTOCOL Digoxin (Lanoxin) 0.125 mg PO DAILY [facility] Last Admin: 09/14/17 09:34 Dose: 0.125 mg Digoxin (Lanoxin) 0.125 mg PO DAILY PRN PRN Reason: To Control Heart Rate Diltiazem HCl (Cardizem Cd) 180 mg PO DAILY [facility] Last Admin: 09/14/17 09:34 Dose: 180 mg Docusate Sodium (Colace) 100 mg PO BID [facility] Last Admin: 09/14/17 09:34 Dose: Not Given Famotidine (Pepcid) 20 mg PO BID [facility] Last Admin: 09/14/17 09:35 Dose: 20 mg Flecainide Acetate (Tambocor) 50 mg PO BID [facility] Last Admin: 09/14/17 09:35 Dose: 50 mg Gabapentin (Neurontin) 600 mg PO Q6HR [facility] Last Admin: 09/14/17 12:56 Dose: 600 mg Glucagon (Glucagon) 1 mg IM PRN PRN PRN Reason: HYPOGLYCEMIA PROTOCOL Dextrose/Water (D5w) 1,000 mls @ 0 mls/hr IV INF PRN; As Directed PRN Reason: HYPOGLYCEMIA PROTOCOL Insulin Detemir 20 units/ (Miscellaneous Medication) 0.2 mls @ 0 mls/hr SC QAM [facility] Last Admin: 09/14/17 09:35 Dose: 0.2 mls Sodium Chloride (Normal Saline 0.9%) 1,000 mls @ 50 mls/hr IV .Q20H [facility] Last Admin: 09/14/17 14:41 Dose: 1,000 mls Insulin Human Lispro (Humalog) 0 units SC .AGGRESSIVE SLIDING PRN; Protocol PRN Reason: AGGRESSIVE SLIDING SCALE Last Admin: 09/14/17 13:00 Dose: 6 unit Insulin Human Lispro (Humalog) 0 units SC .BEDTIME SLIDING SC PRN; Protocol PRN Reason: BEDTIME SLIDING SCALE Last Admin: 09/13/17 21:01 Dose: 3 unit Lidocaine HCl (Xylocaine 4% Topical Sharon) 0 ml TOP BID PRN PRN Reason: Topical Anesthetic Last Admin: 09/14/17 09:40 Dose: 1 applic Lidocaine HCl (Xylocaine 4% Pf) 5 ml NEB WILLCALL [facility] Stop: 09/15/17 12:01 Mometasone Furoate/Formoterol Fumar (Dulera 200 Mcg/5 Mcg Inhaler) 2 puff INH BID-RT [facility] Last Admin: 09/14/17 06:30 Dose: Not Given Montelukast Sodium (Singulair) 10 mg PO HS [facility] Last Admin: 09/13/17 20:33 Dose: 10 mg Nebivolol (Bystolic) 2.5 mg PO DAILY [facility] Last Admin: 09/14/17 09:36 Dose: 2.5 mg Ondansetron HCl (Zofran Odt) 4 mg PO Q6H PRN PRN Reason: Nausea/Vomiting Ondansetron HCl (Zofran) 4 mg IVP Q6H PRN PRN Reason: Nausea/Vomiting Prednisone (Prednisone) 20 mg PO BID [facility] Last Admin: 09/14/17 09:36 Dose: 20 mg Sodium Chloride (Flush - Normal Saline) 10 ml IVF Q12HR [facility] Last Admin: 09/14/17 09:37 Dose: Not Given Sodium Chloride (Flush - Normal Saline) 10 ml IVF PRN PRN PRN Reason: Saline Flush
[2017-09-14] MEDS: Montelukast Sodium 10 mg Tablet PO SCH (20:52)
[2017-09-15] MEDS ORDERED: HYDROcodone/Acetaminophen 5/325 mg Tablet PO SCH (00:15)
[2017-09-15] MEDS: Gabapentin 300 MG CAP PO SCH ×3 (04:46→17:23)
[2017-09-15] MEDS: HumaLOG 300 UNITS/3 ML VIAL SC PRN (06:01)
[2017-09-15] MEDS: Nebivolol HCl 2.5 MG TAB PO SCH (07:12)
[2017-09-15] MEDS ORDERED: Fentanyl 100 MCG/2 ML VIAL ONE ×2 (07:18)
[2017-09-15] MEDS ORDERED: Lidocaine 1% (PF) 30 ML VIAL ONE (07:18)
[2017-09-15] MEDS ORDERED: Midazolam HCl 2 mg/2 ml Vial ONE (07:18)
[2017-09-15] MEDS ORDERED: Benzocaine 20% Spray 60 ML CAN ONE (07:22)
[2017-09-15] MEDS: Mometasone/Formoterol 120 PUFF INHALER INH SCH ×2 (08:07→18:30)
[2017-09-15] MEDS ORDERED: EPINEPHrine 1 MG/10 ML Abboject SYRINGE ONE (08:33)
[2017-09-15] MEDS: Insulin Detemir 100 UNITS/ML 20 UNITS in Pre-Filled Syringe 1 EACH SC SCH (09:28)
[2017-09-15] MEDS: Digoxin 0.125 MG TAB PO SCH (10:07)
[2017-09-15] MEDS: Flecainide 50 MG TAB PO SCH ×2 (10:08→20:58)
[2017-09-15] MEDS: Cefdinir 300 MG CAP PO SCH (10:11)
[2017-09-15] MEDS: cycloSPORINE 0.05% Ophthalmic Droperette EA EYE SCH ×2 (10:12→21:06)
[2017-09-15] MEDS: Docusate 100 MG CAP PO SCH ×2 (10:12→20:57)
[2017-09-15] MEDS: Famotidine 20 MG TAB PO SCH ×2 (10:12→20:57)
--- NOTE | 2017-09-15 10:31 | PRG ---
DATE OF SERVICE: 09/15/2017 Once again underwent a diagnostic bronchoscopy. There was a large mass, completely occluding the rig ht proximal bronchus intermedius just at the takeoff of the right upper lobe bronchus, completely occ luding the rest of the lower lobe bronchus, not able to visualize any segments. Extensive biopsies were done from the necrotic mass. PHYSICAL EXAMINATION: VITAL SIGNS: Post bronchoscopy his sats are 92 on 2 liters, pulse 80, respirations 18, blood was 136 /83. CHEST: Chest revealed decreased breath sounds in left lung. CARDIAC: Normal S1 and S2. ABDOMEN: Soft. No masses. IMPRESSION: 1. Right lung mass, bronchogenic carcinoma, status post bronchoscopy. 2. Previous pneumonia, resolved. 3. Severe chronic obstructive pulmonary disease. PLAN: Await path. He can be discharged home hopefully tomorrow. Restart home medication.
[2017-09-15] MEDS: predniSONE 20 MG TAB PO SCH ×2 (11:15→21:01)
[2017-09-15 12:53] LABS: Hemoglobin 13.4 g/dL (12.0-16.0); Mean Corpuscular HGB CONC 30.4 g/dL (32.0-36.0); Mean Corpuscular Hemoglobin 29.4 pg (27.0-31.0); Mean Corpuscular Volume 96.9 fl (81.0-99.0); Mean Platelet Volume 6.9 fL (7.4-10.4); Platelet Count 279 thou/uL (130-400); RBC Distribution Width 13.9 % (11.5-14.5); Red Blood Cell (RBC) Count 4.56 mill/uL (4.20-5.40); White Blood Cell (WBC) Count 21.6 thou/uL (4.8-10.8)
[2017-09-15 13:15] LABS: ALT (SGPT) 17 U/L (8-55); AST (SGOT) 17 U/L (5-34); Albumin 3.6 g/dL (3.4-4.8); Alkaline Phosphatase 74 U/L (40-150); BUN (Urea Nitrogen) 17 mg/dL (9.8-20.1); Bilirubin, Total 0.4 mg/dL (0.2-1.2); Calc. Creatinine Clearance 81 mL/min (70-130); Calcium 9.1 mg/dL (7.8-10.44); Estimated GFR-MDRD Greater than 90; Globulin 2.4 g/dL (2.4-3.5); Glucose 240 mg/dL (80-115)
[2017-09-15 13:18] LABS: Troponin I Less than 0.010 ng/mL (< 0.028)
[2017-09-15 13:19] LABS: Lymphocytes 7 % (21-51); MDiff Complete? YES; Monocytes 3 % (0-10); Neutrophil 90 % (42-75)
[2017-09-15 13:24] LABS: Chloride 92 mmol/L (98-107); Potassium 4.5 mmol/L (3.5-5.1); Sodium 139 mmol/L (136-145)
[2017-09-15 13:27] LABS: Anion Gap 18 mmol/L (10-20); Carbon Dioxide 34 mmol/L (23-31)
--- NOTE | 2017-09-15 13:48 | RAD ---
RADIOGRAPH CHEST 1 VIEW: Date: 09-15-17 Time: 12:45 p.m. HISTORY: 62-year-old female with respiratory distress. COMPARISON: 09-14-17 FINDINGS: There is a new finding of significant elevation of the right hemidiaphragm. There is another new find ing of heterogeneous, ill-defined opacities occupying the right mid and lower lung zones, contiguous with the right hilum, and extending to the right lateral pleural surface. There is a central 4 x 5 cm lucency in the middle of this pulmonary density. Again noted are the surgical clips in the soft tiss ues just lateral to the right rib cage. The left lung remains relatively clear. No cardiomegaly or pu lmonary edema. No evidence of pneumothorax. Left lateral costophrenic angle remains sharp. IMPRESSION: 1. Interval development of new right pulmonary opacities, and volume loss of the right lower lobe, si nce yesterday. 2. A 5 cm lucency within the right mid-lung zone, questionable for a new cavitation. 3. CT may be useful. KARLENE POS: GRAEME
--- NOTE | 2017-09-15 14:22 | OP ---
PROCEDURE PERFORMED: Bronchoscopy with biopsy. INDICATIONS: Right upper lung mass completely occluding the proximal bronchus intermedius, bronchoge rito carcinoma. DESCRIPTION OF PROCEDURE: After informed consent, the patient received DuoNeb with 4% lidocaine. We proceeded with 1 mg of Versed and 25 fentanyl. The flexible video bronchoscope was then passed via the mouth. Pharynx, upper pharynx, and vocal cords were visualized and unremarkable. On entering th e trachea, this was normal. Anita was sharp. The right lung was able to visualize the right upper lobe bronchus, but right proximal bronchus intermedius was completely occluded with nodular friable m ucosa. I was not able to visualize anything more distally as the area of bled. This area was lavage d with normal saline. The left lung was inspected thereafter, which was completely normal. The area of the nodular mass occluding the bronchus intermedius was biopsied and brushed several times. Blee ding occurred and 10 mL of 1:10,000 epinephrine was instilled to slow the bleeding down. Patient uyen erated the procedure well. Washings sent for AFB smear and culture, fungal smear and culture, routin e Gram stain and C&S. Biopsies sent to pathology, brushings sent for cytology. DISCHARGE NOTE: The patient tolerated the procedure well. Results will be made available to the pat ient and family. Further recommendation as above.
[2017-09-15] MEDS: Dexamethasone 4 mg/ml Vial SLOW IVP SCH ×2 (14:37→20:53)
--- NOTE | 2017-09-15 14:41 | PRG ---
DATE OF SERVICE: 09/15/2017 SUBJECTIVE: Reuben ruggiero was called and the sats were in the 70s on 40% Ventimask, placed on 50%, sats are still in the 70s. She is clearly having difficulty breathing. About 20 minutes ago, I saw her sats were 91% on 40% Ventimask. Stat chest x-ray showed a loss of volume on the right lower lung. B ronchoscopy had revealed a complete occlusion of the proximal bronchus intermedius more than likely t he additional mucous blood that has further compromised the airway causing volume loss and a right lo wer lung atelectasis. She is clearly anxious. She does not want to be intubated. OBJECTIVE: VITAL SIGNS: Respiratory rate is 30, pulse 100, blood pressure 120/80. CHEST: Decreased breath sounds. There is no wheezing. CARDIAC: Sinus tachycardia. ABDOMEN: No masses. IMPRESSION: More than likely bronchogenic carcinoma, right proximal bronchus intermedius with comple te lower lung atelectatic worse post-bronchoscopy. PLAN: Decadron, antibiotics and BiPAP is being tried, steroids. Continue frequent nebulizer treatme nts. Once again, she is not to be intubated as per her wishes. There are no family members here to discuss the findings with her.
--- NOTE | 2017-09-15 14:42 | ADD-PRG ---
DATE OF SERVICE: 09/15/2017 This is an addendum to the previous note dictated when she had respiratory distress. She is now in the ICU on BiPAP, level of 5. Sats are 96% to 99% when relaxes. 2 mg of morphine was given. PHYSICAL EXAMINATION: VITAL SIGNS: I had a lengthy discussion with the patient whose blood pressure is 150/80, pulse 120, respirations 30. CHEST: Chest reveals decreased breath sounds in the right lung. Left lung unremarkable. CARDIAC: Sinus tachycardia. ABDOMEN: Soft. White count 20,000. Otherwise, electrolytes are normal. IMPRESSION: 1. Right lower lung atelectasis from mass obstruction of the right bronchus intermedius. 2. Respiratory distress. 3. End-stage chronic obstructive pulmonary disease. PLAN: Continue noninvasive ventilation. Low dose morphine was given for comfort care. Overall, long-term prognosis is grave. This is an ongoing critical care note one-half hour.
[2017-09-15] MEDS: Sodium Chloride 0.9% 1,000 ML IV SCH (14:44)
[2017-09-15] MEDS: Sodium Chloride 0.45% 1,000 ML IV SCH (14:44)
--- NOTE | 2017-09-15 14:45 | PDOC.PN ---
- Subjective Encounter Start Date: 09/15/17 Encounter Start Time: 13:40 Pt seen for followup re: acute respiratory distress.Had dyspnea since today AM. Cough+. No fevers or chills. - Objective Resuscitation Status: Resuscitation Status DNI:No Intubation MAR Reviewed: Yes Vital Signs & Weight: Vital Signs (12 hours) Temp Pulse Pulse Pulse Resp Resp Resp 09/15/17 14:19 109 H 21 H 09/15/17 14:16 108 H 21 H 09/15/17 13:10 113 H 21 H 09/15/17 13:00 97.4 F L 09/15/17 12:32 120 H 129 H 28 H 30 H 09/15/17 12:26 117 H 26 H 09/15/17 11:50 106 H 24 H 09/15/17 11:45 108 H 24 H 09/15/17 11:25 97.1 F L 98 18 09/15/17 10:55 103 H 20 09/15/17 10:25 104 H 20 09/15/17 10:16 102 H 24 H 09/15/17 10:07 100 09/15/17 09:55 97.1 F L 102 H 20 09/15/17 09:40 97 F L 101 H 20 09/15/17 09:39 101 H 24 H 09/15/17 09:25 97.1 F L 93 20 09/15/17 09:10 97.1 F L 105 H 20 09/15/17 07:05 97.8 F 92 18 09/15/17 06:05 97.8 F 92 18 BP BP BP BP Pulse Ox Pulse Ox Pulse Ox 09/15/17 14:19 96 09/15/17 14:16 94 L 09/15/17 13:10 95 09/15/17 13:00 09/15/17 12:32 126/72 153/79 H 84 L 75 L 09/15/17 12:26 126/72 84 L 09/15/17 11:50 129/71 91 L 09/15/17 11:45 69 L 09/15/17 11:25 113/59 L 93 L 09/15/17 10:55 148/77 H 90 L 09/15/17 10:25 122/62 88 L 09/15/17 10:16 120/62 85 L 09/15/17 10:07 09/15/17 09:55 113/59 L 96 09/15/17 09:40 133/74 90 L 09/15/17 09:39 90 L 09/15/17 09:25 123/70 90 L 09/15/17 09:10 115/68 85 L 09/15/17 07:05 99 09/15/17 06:05 137/83 99 Weight Admit Weight 120 lb 9 oz Weight 112 lb 6 oz I&O: 09/14/17 09/15/17 09/16/17 06:59 06:59 06:59 Intake Total 240 1760 250 Output Total 1200 0 Balance -960 1760 250 Result Diagrams: 09/15/17 12:41 09/15/17 12:41 Additional Labs: Accuchecks 09/15/17 09/15/17 09/14/17 12:22 06:01 20:44 POC Glucose 223 H 251 H 263 H 09/14/17 15:56 POC Glucose 311 H Phys Exam - Physical Examination moderate respiratory distress HEENT: moist MMs Neck: supple Diminished air entry selwyn bases Cardiovascular: RRR Gastrointestinal: positive bowel sounds Neurological: moves all 4 limbs Psychiatric: normal affect Dx/Plan (1) Acute respiratory distress Code(s): R06.03 - ACUTE RESPIRATORY DISTRESS Status: Acute (2) Acute respiratory failure with hypoxia and hypercapnia Code(s): J96.01 - ACUTE RESPIRATORY FAILURE WITH HYPOXIA; J96.02 - ACUTE RESPIRATORY FAILURE WITH HYPERCAPNIA Status: Acute (3) CAP (community acquired pneumonia) Code(s): J18.9 - PNEUMONIA, UNSPECIFIED ORGANISM Status: Acute (4) Endobronchial mass Code(s): R22.2 - LOCALIZED SWELLING, MASS AND LUMP, TRUNK Status: Acute (5) COPD (chronic obstructive pulmonary disease) Status: Chronic - Plan continue antibiotics * . Continue oxygen, bronchodilators, steroids. Start Bilevel PAP. d/w PCCM service. Review of Systems - Review of Systems Respiratory: Cough, Shortness of Breath, SOB with Excertion, Sputum. negative: Dry, Hemoptysis, Pleuritic Pain, Wheezing Cardiovascular: negative: chest pain, palpitations, orthopnea, paroxysmal nocturnal dyspnea, edema, light headedness - Medications/Allergies Allergies/Adverse Reactions: Allergies Allergy/AdvReac Type Severity Reaction Status Date / Time Sulfa (Sulfonamide Allergy Verified 09/04/17 00:24 Antibiotics) Medications: Current Medications Acetaminophen (Tylenol) 650 mg [place] Q4H PRN PRN Reason: Headache/Fever or Pain Acetaminophen (Tylenol Er (8hr Arthritis Pain)) 650 mg PO QID PRN PRN Reason: Pain Last Admin: 09/14/17 23:25 Dose: 650 mg Albuterol Sulfate (Proventil Hfa) 2 puff INH Q6H PRN PRN Reason: SOB &/or Wheezing Albuterol/Ipratropium (Duoneb) 3 ml NEB [id number] [facility] Last Admin: 09/15/17 14:16 Dose: 3 ml Alendronate Sodium (Fosamax) 70 mg PO Q7D@0600 [facility] Last Admin: 09/11/17 06:04 Dose: 70 mg Apixaban (Eliquis) 2.5 mg PO BID [facility] Bisacodyl (Dulcolax) 10 mg PO DAILYPRN PRN PRN Reason: Constipation Last Admin: 09/07/17 17:41 Dose: 10 mg Cholecalciferol (Vitamin D3) 1,000 units PO DAILY [facility] Last Admin: 09/15/17 10:07 Dose: 1,000 units Cyclosporine (Restasis) 0.4 ml EA EYE BID [facility] Last Admin: 09/15/17 10:12 Dose: Not Given Dexamethasone (Decadron) 4 mg SLOW IVP 0100,0700,1300,1900 [facility] Dextrose/Water (Dextrose 50%) 25 gm IVP PRN PRN PRN Reason: HYPOGLYCEMIA PROTOCOL Digoxin (Lanoxin) 0.125 mg PO DAILY [facility] Last Admin: 09/15/17 10:07 Dose: 0.125 mg Digoxin (Lanoxin) 0.125 mg PO DAILY PRN PRN Reason: To Control Heart Rate Diltiazem HCl (Cardizem Cd) 180 mg PO DAILY [facility] Last Admin: 09/15/17 10:11 Dose: 180 mg Docusate Sodium (Colace) 100 mg PO BID [facility] Last Admin: 09/15/17 10:12 Dose: Not Given Famotidine (Pepcid) 20 mg PO BID [facility] Last Admin: 09/15/17 10:12 Dose: 20 mg Flecainide Acetate (Tambocor) 50 mg PO BID [facility] Last Admin: 09/15/17 10:08 Dose: 50 mg Gabapentin (Neurontin) 600 mg PO Q6HR [facility] Last Admin: 09/15/17 11:16 Dose: 600 mg Glucagon (Glucagon) 1 mg IM PRN PRN PRN Reason: HYPOGLYCEMIA PROTOCOL Guaifenesin (Mucinex) 600 mg PO Q12HR [facility] Dextrose/Water (D5w) 1,000 mls @ 0 mls/hr IV INF PRN; As Directed PRN Reason: HYPOGLYCEMIA PROTOCOL Insulin Detemir 20 units/ (Miscellaneous Medication) 0.2 mls @ 0 mls/hr SC QAM [facility] Last Admin: 09/15/17 09:28 Dose: 0.2 mls Cefepime HCl 1 gm/Miscellaneous Medication 1 each/ Sterile Water 10 mls @ 120 mls/hr SLOW IVP Q12HR [facility] Sodium Chloride (1/2 Normal Saline) 1,000 mls @ 50 mls/hr IV .Q20H [facility] Insulin Human Lispro (Humalog) 0 units SC .AGGRESSIVE SLIDING PRN; Protocol PRN Reason: AGGRESSIVE SLIDING SCALE Last Admin: 09/15/17 06:01 Dose: 9 unit Insulin Human Lispro (Humalog) 0 units SC .BEDTIME SLIDING SC PRN; Protocol PRN Reason: BEDTIME SLIDING SCALE Last Admin: 09/14/17 20:50 Dose: 3 unit Lidocaine HCl (Xylocaine 4% Topical Sharon) 0 ml TOP BID PRN PRN Reason: Topical Anesthetic Last Admin: 09/14/17 09:40 Dose: 1 applic Mometasone Furoate/Formoterol Fumar (Dulera 200 Mcg/5 Mcg Inhaler) 2 puff INH BID-RT [facility] Last Admin: 09/15/17 08:07 Dose: Not Given Montelukast Sodium (Singulair) 10 mg PO HS [facility] Last Admin: 09/14/17 20:52 Dose: 10 mg Morphine Sulfate (Morphine) 2 mg SLOW IVP Q4H PRN PRN Reason: Mild Pain (1-3) Nebivolol (Bystolic) 2.5 mg PO DAILY [facility] Last Admin: 09/15/17 07:12 Dose: 2.5 mg Ondansetron HCl (Zofran Odt) 4 mg PO Q6H PRN PRN Reason: Nausea/Vomiting Ondansetron HCl (Zofran) 4 mg IVP Q6H PRN PRN Reason: Nausea/Vomiting Prednisone (Prednisone) 20 mg PO BID [facility] Last Admin: 09/15/17 11:15 Dose: 20 mg Sodium Chloride (Flush - Normal Saline) 10 ml IVF Q12HR [facility] Last Admin: 09/15/17 10:12 Dose: 10 ml Sodium Chloride (Flush - Normal Saline) 10 ml IVF PRN PRN PRN Reason: Saline Flush
[2017-09-15] MEDS: Lorazepam 2 MG/ML VIAL SLOW IVP PRN (15:55)
[2017-09-15] MEDS ORDERED: Dexamethasone 4 MG in Sodium Chloride 0.9% 50 ML IVPB SCH (18:00)
[2017-09-15] MEDS: Apixaban 5 MG TAB PO SCH (20:55)
[2017-09-15] MEDS: Montelukast Sodium 10 mg Tablet PO SCH (20:58)
[2017-09-15] MEDS: guaiFENesin ER 600 MG TAB PO SCH (20:59)
[2017-09-15] MEDS ORDERED: Cefepime 1 GM in Sodium Chloride 0.9% 100 ML IVPB SCH (21:00)
[2017-09-15] MEDS: Cefepime 1 GM, Admixture Fee 1 EACH in Sterile Water 10 ML SLOW IVP SCH (21:11)
[2017-09-16] MEDS: Dexamethasone 4 mg/ml Vial SLOW IVP SCH ×4 (01:20→19:21)
[2017-09-16] MEDS: Gabapentin 300 MG CAP PO SCH ×4 (01:20→17:19)
[2017-09-16] MEDS: HYDROcodone/Acetaminophen 5/325 mg Tablet PO PRN (02:04)
[2017-09-16] MEDS: Lorazepam 2 MG/ML VIAL SLOW IVP PRN ×2 (02:05→16:09)
[2017-09-16 06:11] LABS: Hemoglobin 12.5 g/dL (12.0-16.0); Platelet Count 243 thou/uL (130-400)
[2017-09-16] MEDS: HumaLOG 300 UNITS/3 ML VIAL SC PRN ×3 (06:50→17:19)
[2017-09-16] MEDS: Mometasone/Formoterol 120 PUFF INHALER INH SCH ×2 (07:18→18:20)
--- NOTE | 2017-09-16 08:19 | RAD ---
CHEST ONE VIEW PORTABLE: History: 62-year-old female with history of lung cancer. Comparison: 09-15-17 FINDINGS: Stable pleural and parenchymal opacity changes in the right mid and lower lung zone with some elevati on of the right hemidiaphragm with post-surgical clips in this region. Stable unremarkable appearing left lung. No cardiomegaly. IMPRESSION: Persistent pleural and parenchymal opacity changes in the right chest with some right hemidiaphragm e levation and evidence of right sided lung volume loss with little change from 09-15-17. Continued short term follow up for clearing or stability. POS: GRAEME
[2017-09-16] MEDS: Insulin Detemir 100 UNITS/ML 20 UNITS in Pre-Filled Syringe 1 EACH SC SCH (08:25)
[2017-09-16] MEDS: Cefepime 1 GM, Admixture Fee 1 EACH in Sterile Water 10 ML SLOW IVP SCH ×2 (08:25→21:02)
[2017-09-16] MEDS: predniSONE 20 MG TAB PO SCH ×2 (08:26→21:05)
[2017-09-16] MEDS: Apixaban 5 MG TAB PO SCH ×2 (08:26→21:03)
[2017-09-16] MEDS: Nebivolol HCl 2.5 MG TAB PO SCH (08:26)
[2017-09-16] MEDS: cycloSPORINE 0.05% Ophthalmic Droperette EA EYE SCH ×2 (08:26→21:05)
[2017-09-16] MEDS: Flecainide 50 MG TAB PO SCH ×2 (08:27→21:04)
[2017-09-16] MEDS: Docusate 100 MG CAP PO SCH ×2 (08:27→21:05)
[2017-09-16] MEDS: Famotidine 20 MG TAB PO SCH ×2 (08:27→21:04)
[2017-09-16] MEDS: Digoxin 0.125 MG TAB PO SCH (08:27)
[2017-09-16] MEDS: guaiFENesin ER 600 MG TAB PO SCH ×2 (08:27→21:04)
--- NOTE | 2017-09-16 09:44 | PRG ---
DATE OF SERVICE: 09/16/2017 She is better this morning. She coughed up a large volume of mucus. Lungs are still atelectatic wit h the mass obstructing the proximal bronchus intermedius. X-ray shows volume loss, hilar mass. She is better. PHYSICAL EXAMINATION: VITAL SIGNS: Sats are 93% on 4 liters, temperature 96, blood pressure 109/70. CHEST: Chest reveals decreased breath sounds, no wheezing. CARDIAC: Normal S1, S2. ABDOMEN: Soft, no masses. IMPRESSION: 1. Right lung bronchogenic carcinoma with atelectatic changes. 2. Chronic obstructive pulmonary disease, end-stage. 3. Do not intubate. PLAN: IV antibiotics, neb treatments, supportive care. organic lab worker input. She says she has an oncologist and bias binding cutter at [facility] she would lik e to see. Hopefully, after she is discharged, she can follow up with them.
[2017-09-16] MEDS: Sodium Chloride 0.45% 1,000 ML IV SCH (12:38)
--- NOTE | 2017-09-16 17:33 | PDOC.PN ---
- Subjective Encounter Start Date: 09/16/17 Encounter Start Time: 09:40 Pt seen for followup re: acute respiratory failure. Says he breathing is better. - Objective Resuscitation Status: Resuscitation Status DNI:No Intubation MAR Reviewed: Yes Vital Signs & Weight: Vital Signs (12 hours) Temp Pulse Resp BP BP Pulse Ox 09/16/17 15:32 96.6 F L 96 20 127/58 L 98 09/16/17 14:35 93 16 98 09/16/17 14:27 93 18 09/16/17 11:28 96.6 F L 107 H 22 H 133/59 L 97 09/16/17 10:28 100 20 09/16/17 08:27 103 H 09/16/17 08:00 96.4 F L 103 H 19 93 L 09/16/17 07:21 100 18 09/16/17 07:00 96.4 F L 100 19 109/65 93 L Weight Admit Weight 120 lb 9 oz Weight 119 lb 6.4 oz I&O: 09/15/17 09/16/17 09/17/17 06:59 06:59 06:59 Intake Total 1760 1332 1560 Output Total 2100 Balance 1760 -768 1560 Result Diagrams: 09/16/17 06:04 09/16/17 06:04 Additional Labs: Accuchecks 09/16/17 09/16/17 09/16/17 16:08 12:25 06:06 POC Glucose 196 H 280 H 308 H 09/15/17 21:17 POC Glucose 233 H EKG Reviewed by me: Yes (Tele: NSR) Phys Exam - Physical Examination Constitutional: NAD HEENT: moist MMs Neck: supple Respiratory: clear to auscultation bilateral Cardiovascular: RRR Gastrointestinal: soft Musculoskeletal: pulses present Psychiatric: normal affect Dx/Plan (1) Acute respiratory failure with hypoxia and hypercapnia Code(s): J96.01 - ACUTE RESPIRATORY FAILURE WITH HYPOXIA; J96.02 - ACUTE RESPIRATORY FAILURE WITH HYPERCAPNIA Status: Acute (2) CAP (community acquired pneumonia) Code(s): J18.9 - PNEUMONIA, UNSPECIFIED ORGANISM Status: Acute (3) Endobronchial mass Code(s): R22.2 - LOCALIZED SWELLING, MASS AND LUMP, TRUNK Status: Acute (4) COPD (chronic obstructive pulmonary disease) Status: Chronic (5) Acute respiratory distress Code(s): R06.03 - ACUTE RESPIRATORY DISTRESS Status: Resolved - Plan continue antibiotics, out of bed/ambulate * . Await path report from second bronchoscopy. Review of Systems - Review of Systems Constitutional: negative: fever, chills, sweats, weakness, malaise Respiratory: Cough, SOB with Excertion, Sputum - Medications/Allergies Allergies/Adverse Reactions: Allergies Allergy/AdvReac Type Severity Reaction Status Date / Time Sulfa (Sulfonamide Allergy Verified 09/04/17 00:24 Antibiotics) Medications: Current Medications Acetaminophen (Tylenol) 650 mg [place] Q4H PRN PRN Reason: Headache/Fever or Pain Acetaminophen (Tylenol Er (8hr Arthritis Pain)) 650 mg PO QID PRN PRN Reason: Pain Last Admin: 09/14/17 23:25 Dose: 650 mg Hydrocodone Bitart/Acetaminophen ([place] 5/325) 1 tab PO Q4H PRN PRN Reason: Moderate Pain (4-6) Last Admin: 09/16/17 02:04 Dose: 1 tab Albuterol Sulfate (Proventil Hfa) 2 puff INH Q6H PRN PRN Reason: SOB &/or Wheezing Albuterol/Ipratropium (Duoneb) 3 ml NEB [id number]-FD [facility] Last Admin: 09/16/17 14:27 Dose: 3 ml Alendronate Sodium (Fosamax) 70 mg PO Q7D@0600 [facility] Last Admin: 09/11/17 06:04 Dose: 70 mg Apixaban (Eliquis) 2.5 mg PO BID [facility] Last Admin: 09/16/17 08:26 Dose: 2.5 mg Bisacodyl (Dulcolax) 10 mg PO DAILYPRN PRN PRN Reason: Constipation Last Admin: 09/07/17 17:41 Dose: 10 mg Cholecalciferol (Vitamin D3) 1,000 units PO DAILY [facility] Last Admin: 09/16/17 08:26 Dose: 1,000 units Cyclosporine (Restasis) 0.4 ml EA EYE BID [facility] Last Admin: 09/16/17 08:26 Dose: 0.4 ml Dexamethasone (Decadron) 4 mg SLOW IVP 0100,0700,1300,1900 [facility] Last Admin: 09/16/17 12:35 Dose: 4 mg Dextrose/Water (Dextrose 50%) 25 gm IVP PRN PRN PRN Reason: HYPOGLYCEMIA PROTOCOL Digoxin (Lanoxin) 0.125 mg PO DAILY [facility] Last Admin: 09/16/17 08:27 Dose: 0.125 mg Digoxin (Lanoxin) 0.125 mg PO DAILY PRN PRN Reason: To Control Heart Rate Diltiazem HCl (Cardizem Cd) 180 mg PO DAILY [facility] Last Admin: 09/16/17 08:26 Dose: 180 mg Docusate Sodium (Colace) 100 mg PO BID [facility] Last Admin: 09/16/17 08:27 Dose: Not Given Famotidine (Pepcid) 20 mg PO BID [facility] Last Admin: 09/16/17 08:27 Dose: 20 mg Flecainide Acetate (Tambocor) 50 mg PO BID [facility] Last Admin: 09/16/17 08:27 Dose: 50 mg Gabapentin (Neurontin) 600 mg PO Q6HR [facility] Last Admin: 09/16/17 17:19 Dose: 600 mg Glucagon (Glucagon) 1 mg IM PRN PRN PRN Reason: HYPOGLYCEMIA PROTOCOL Guaifenesin (Mucinex) 600 mg PO Q12HR [facility] Last Admin: 09/16/17 08:27 Dose: 600 mg Dextrose/Water (D5w) 1,000 mls @ 0 mls/hr IV INF PRN; As Directed PRN Reason: HYPOGLYCEMIA PROTOCOL Insulin Detemir 20 units/ (Miscellaneous Medication) 0.2 mls @ 0 mls/hr SC QAM [facility] Last Admin: 09/16/17 08:25 Dose: 0.2 mls Cefepime HCl 1 gm/Miscellaneous Medication 1 each/ Sterile Water 10 mls @ 120 mls/hr SLOW IVP Q12HR [facility] Last Admin: 09/16/17 08:25 Dose: 10 mls Sodium Chloride (1/2 Normal Saline) 1,000 mls @ 50 mls/hr IV .Q20H [facility] Last Admin: 09/16/17 12:38 Dose: 1,000 mls Insulin Human Lispro (Humalog) 0 units SC .AGGRESSIVE SLIDING PRN; Protocol PRN Reason: AGGRESSIVE SLIDING SCALE Last Admin: 09/16/17 17:19 Dose: 3 unit Insulin Human Lispro (Humalog) 0 units SC .BEDTIME SLIDING SC PRN; Protocol PRN Reason: BEDTIME SLIDING SCALE Last Admin: 09/14/17 20:50 Dose: 3 unit Lidocaine HCl (Xylocaine 4% Topical Sharon) 0 ml TOP BID PRN PRN Reason: Topical Anesthetic Last Admin: 09/14/17 09:40 Dose: 1 applic Lorazepam (Ativan) 0.5 mg SLOW IVP Q4H PRN PRN Reason: Anxiety Last Admin: 09/16/17 16:09 Dose: 0.5 mg Mometasone Furoate/Formoterol Fumar (Dulera 200 Mcg/5 Mcg Inhaler) 2 puff INH BID-RT [facility] Last Admin: 09/16/17 07:18 Dose: 2 puff Montelukast Sodium (Singulair) 10 mg PO HS [facility] Last Admin: 09/15/17 20:58 Dose: 10 mg Morphine Sulfate (Morphine) 2 mg SLOW IVP Q4H PRN PRN Reason: Mild Pain (1-3) Nebivolol (Bystolic) 2.5 mg PO DAILY [facility] Last Admin: 09/16/17 08:26 Dose: 2.5 mg Ondansetron HCl (Zofran Odt) 4 mg PO Q6H PRN PRN Reason: Nausea/Vomiting Ondansetron HCl (Zofran) 4 mg IVP Q6H PRN PRN Reason: Nausea/Vomiting Prednisone (Prednisone) 20 mg PO BID [facility] Last Admin: 09/16/17 08:26 Dose: 20 mg Sodium Chloride (Flush - Normal Saline) 10 ml IVF Q12HR [facility] Last Admin: 09/16/17 08:28 Dose: 10 ml Sodium Chloride (Flush - Normal Saline) 10 ml IVF PRN PRN PRN Reason: Saline Flush
[2017-09-16] MEDS: Montelukast Sodium 10 mg Tablet PO SCH (21:04)
[2017-09-17] MEDS: Gabapentin 300 MG CAP PO SCH ×5 (00:03→23:38)
[2017-09-17] MEDS: HYDROcodone/Acetaminophen 5/325 mg Tablet PO PRN ×2 (01:08→23:38)
[2017-09-17] MEDS: Dexamethasone 4 mg/ml Vial SLOW IVP SCH ×2 (01:10→08:48)
[2017-09-17] MEDS: Sodium Chloride 0.45% 1,000 ML IV SCH (06:12)
[2017-09-17] MEDS: HumaLOG 300 UNITS/3 ML VIAL SC PRN ×4 (06:18→21:15)
[2017-09-17] MEDS: Mometasone/Formoterol 120 PUFF INHALER INH SCH ×2 (07:37→19:06)
--- NOTE | 2017-09-17 09:19 | PRG ---
DATE OF SERVICE: 09/17/2017 She is seen this morning. She says she is better, less short of breath, still coughing some blood. PHYSICAL EXAMINATION: VITAL SIGNS: Sats are 98 on 3, respirations 19, temperature 97, blood pressure 120/64. CHEST: Chest reveals decreased breath sounds in the right lung. Left lung unremarkable. CARDIAC: Normal S1, S2. IMPRESSION: 1. Right lung squamous cell carcinoma, unresectable. 2. End-stage chronic obstructive pulmonary disease. 3. Severe deconditioning. PLAN: She will go to a swing bed in [place], eventually see primary care doctor at [facility] including an oncologist.
[2017-09-17] MEDS: Digoxin 0.125 MG TAB PO SCH (09:35)
[2017-09-17] MEDS: Nebivolol HCl 2.5 MG TAB PO SCH (09:35)
[2017-09-17] MEDS: Insulin Detemir 100 UNITS/ML 20 UNITS in Pre-Filled Syringe 1 EACH SC SCH (09:36)
[2017-09-17] MEDS: Flecainide 50 MG TAB PO SCH ×2 (09:37→21:11)
[2017-09-17] MEDS: Cefdinir 300 MG CAP PO SCH ×2 (09:38→21:10)
[2017-09-17] MEDS: predniSONE 20 MG TAB PO SCH ×2 (09:38→21:10)
[2017-09-17] MEDS: Famotidine 20 MG TAB PO SCH ×2 (09:38→21:10)
[2017-09-17] MEDS: Docusate 100 MG CAP PO SCH ×2 (09:39→21:11)
[2017-09-17] MEDS: guaiFENesin ER 600 MG TAB PO SCH ×2 (09:39→21:10)
[2017-09-17] MEDS: Apixaban 5 MG TAB PO SCH ×2 (09:39→21:11)
[2017-09-17] MEDS: cycloSPORINE 0.05% Ophthalmic Droperette EA EYE SCH ×2 (09:40→21:11)
[2017-09-17 10:55] LABS: Anion Gap 15 mmol/L (10-20); BUN (Urea Nitrogen) 25 mg/dL (9.8-20.1); Calc. Creatinine Clearance 74 mL/min (70-130); Calcium 9.5 mg/dL (7.8-10.44); Carbon Dioxide 35 mmol/L (23-31); Chloride 94 mmol/L (98-107); Estimated GFR-MDRD 89; Glucose 315 mg/dL (80-115); Potassium 5.3 mmol/L (3.5-5.1); Sodium 139 mmol/L (136-145)
--- NOTE | 2017-09-17 11:03 | PDOC.PN ---
- Subjective Encounter Start Date: 09/17/17 Encounter Start Time: 08:20 Pt seen for followup re: acute respiratory failure. Feels better. Cough+, small amount of bloody sputum+ - Objective Resuscitation Status: Resuscitation Status DNI:No Intubation MAR Reviewed: Yes Vital Signs & Weight: Vital Signs (12 hours) Temp Pulse Resp BP BP Pulse Ox 09/17/17 09:35 106 H 09/17/17 07:57 97.8 F 91 19 98 09/17/17 07:50 97.8 F 91 19 128/64 98 09/17/17 07:40 99 09/17/17 07:39 100 20 99 09/17/17 07:36 100 22 H 99 09/17/17 04:00 97.8 F 91 18 113/60 98 09/17/17 02:26 90 18 96 09/17/17 00:00 97.8 F 118 H 22 H 97/62 90 L Weight Admit Weight 120 lb 9 oz Weight 116 lb 14.4 oz I&O: 09/16/17 09/17/17 09/18/17 06:59 06:59 06:59 Intake Total 1332 2870 240 Output Total 2100 3950 Balance -768 -1080 240 Result Diagrams: 09/16/17 06:04 09/17/17 10:26 Additional Labs: Accuchecks 09/17/17 09/16/17 09/16/17 05:36 21:02 16:08 POC Glucose 475 H 191 H 196 H 09/16/17 12:25 POC Glucose 280 H EKG Reviewed by me: Yes (Tele: NSR) Dx/Plan (1) Acute respiratory failure with hypoxia and hypercapnia Code(s): J96.01 - ACUTE RESPIRATORY FAILURE WITH HYPOXIA; J96.02 - ACUTE RESPIRATORY FAILURE WITH HYPERCAPNIA Status: Acute (2) CAP (community acquired pneumonia) Code(s): J18.9 - PNEUMONIA, UNSPECIFIED ORGANISM Status: Acute (3) Squamous cell carcinoma of bronchus Code(s): C34.90 - MALIGNANT NEOPLASM OF UNSP PART OF UNSP BRONCHUS OR LUNG Status: Acute (4) COPD (chronic obstructive pulmonary disease) Status: Chronic (5) Acute respiratory distress Code(s): R06.03 - ACUTE RESPIRATORY DISTRESS Status: Resolved - Plan * . Pt with new diagnosis of sq cell CA of bronchus. Plan is to discharge pt to swing bed, then followup with her PCP and oncologist at [facility]. Review of Systems - Review of Systems Respiratory: Cough, Sputum. negative: Dry, Shortness of Breath, Hemoptysis, SOB with Excertion, Pleuritic Pain, Wheezing Cardiovascular: negative: chest pain, palpitations, orthopnea, paroxysmal nocturnal dyspnea, edema, light headedness Skin: negative: Rash, Lesions, Bruising - Medications/Allergies Allergies/Adverse Reactions: Allergies Allergy/AdvReac Type Severity Reaction Status Date / Time Sulfa (Sulfonamide Allergy Verified 09/04/17 00:24 Antibiotics) Medications: Current Medications Acetaminophen (Tylenol) 650 mg OK Q4H PRN PRN Reason: Headache/Fever or Pain Acetaminophen (Tylenol Er (8hr Arthritis Pain)) 650 mg PO QID PRN PRN Reason: Pain Last Admin: 09/14/17 23:25 Dose: 650 mg Hydrocodone Bitart/Acetaminophen ([place] 5/325) 1 tab PO Q4H PRN PRN Reason: Moderate Pain (4-6) Last Admin: 09/17/17 01:08 Dose: 1 tab Albuterol Sulfate (Proventil Hfa) 2 puff INH Q6H PRN PRN Reason: SOB &/or Wheezing Albuterol/Ipratropium (Duoneb) 3 ml NEB [id number] [facility] Last Admin: 09/17/17 07:36 Dose: 3 ml Alendronate Sodium (Fosamax) 70 mg PO Q7D@0600 [facility] Last Admin: 09/11/17 06:04 Dose: 70 mg Apixaban (Eliquis) 2.5 mg PO BID [facility] Last Admin: 09/17/17 09:39 Dose: 2.5 mg Bisacodyl (Dulcolax) 10 mg PO DAILYPRN PRN PRN Reason: Constipation Last Admin: 09/07/17 17:41 Dose: 10 mg Cefdinir (Omnicef) 300 mg PO BID [facility] Last Admin: 09/17/17 09:38 Dose: 300 mg Cholecalciferol (Vitamin D3) 1,000 units PO DAILY [facility] Last Admin: 09/17/17 09:35 Dose: 1,000 units Cyclosporine (Restasis) 0.4 ml EA EYE BID [facility] Last Admin: 09/17/17 09:40 Dose: Not Given Dextrose/Water (Dextrose 50%) 25 gm IVP PRN PRN PRN Reason: HYPOGLYCEMIA PROTOCOL Digoxin (Lanoxin) 0.125 mg PO DAILY [facility] Last Admin: 09/17/17 09:35 Dose: 0.125 mg Digoxin (Lanoxin) 0.125 mg PO DAILY PRN PRN Reason: To Control Heart Rate Diltiazem HCl (Cardizem Cd) 180 mg PO DAILY [facility] Last Admin: 09/17/17 09:38 Dose: 180 mg Docusate Sodium (Colace) 100 mg PO BID [facility] Last Admin: 09/17/17 09:39 Dose: Not Given Famotidine (Pepcid) 20 mg PO BID [facility] Last Admin: 09/17/17 09:38 Dose: 20 mg Flecainide Acetate (Tambocor) 50 mg PO BID [facility] Last Admin: 09/17/17 09:37 Dose: 50 mg Gabapentin (Neurontin) 600 mg PO Q6HR [facility] Last Admin: 09/17/17 06:08 Dose: 600 mg Glucagon (Glucagon) 1 mg IM PRN PRN PRN Reason: HYPOGLYCEMIA PROTOCOL Guaifenesin (Mucinex) 600 mg PO Q12HR [facility] Last Admin: 09/17/17 09:39 Dose: 600 mg Dextrose/Water (D5w) 1,000 mls @ 0 mls/hr IV INF PRN; As Directed PRN Reason: HYPOGLYCEMIA PROTOCOL Insulin Detemir 20 units/ (Miscellaneous Medication) 0.2 mls @ 0 mls/hr SC QAM [facility] Last Admin: 09/17/17 09:36 Dose: 0.2 mls Insulin Human Lispro (Humalog) 0 units SC .AGGRESSIVE SLIDING PRN; Protocol PRN Reason: AGGRESSIVE SLIDING SCALE Last Admin: 09/17/17 06:18 Dose: 13 unit Insulin Human Lispro (Humalog) 0 units SC .BEDTIME SLIDING SC PRN; Protocol PRN Reason: BEDTIME SLIDING SCALE Last Admin: 09/14/17 20:50 Dose: 3 unit Lidocaine HCl (Xylocaine 4% Topical Sharon) 0 ml TOP BID PRN PRN Reason: Topical Anesthetic Last Admin: 09/14/17 09:40 Dose: 1 applic Lorazepam (Ativan) 0.5 mg SLOW IVP Q4H PRN PRN Reason: Anxiety Last Admin: 09/16/17 16:09 Dose: 0.5 mg Mometasone Furoate/Formoterol Fumar (Dulera 200 Mcg/5 Mcg Inhaler) 2 puff INH BID-RT [facility] Last Admin: 09/17/17 07:37 Dose: 2 puff Montelukast Sodium (Singulair) 10 mg PO HS [facility] Last Admin: 09/16/17 21:04 Dose: 10 mg Morphine Sulfate (Morphine) 2 mg SLOW IVP Q4H PRN PRN Reason: Mild Pain (1-3) Nebivolol (Bystolic) 2.5 mg PO DAILY [facility] Last Admin: 09/17/17 09:35 Dose: 2.5 mg Ondansetron HCl (Zofran Odt) 4 mg PO Q6H PRN PRN Reason: Nausea/Vomiting Ondansetron HCl (Zofran) 4 mg IVP Q6H PRN PRN Reason: Nausea/Vomiting Prednisone (Prednisone) 20 mg PO BID [facility] Last Admin: 09/17/17 09:38 Dose: 20 mg Sodium Chloride (Flush - Normal Saline) 10 ml IVF Q12HR [facility] Last Admin: 09/17/17 09:40 Dose: 10 ml Sodium Chloride (Flush - Normal Saline) 10 ml IVF PRN PRN PRN Reason: Saline Flush
[2017-09-17 11:07] LABS: #Lymphocytes 0.3 thou/uL (1.20-3.40); #Monocytes 0.8 thou/uL (0.11-0.59); #Neutrophils 13.6 thou/uL (1.40-6.50); %Basophils 0.1 % (0.0-1.0); %Eosinophils 0.3 % (0.0-10.0); %Lymphocytes 1.7 % (21.0-51.0); %Monocytes 5.4 % (0.0-10.0); %Neutrophils 92.5 % (42.0-75.0); Band 2 % (5-11); Hemoglobin 9.9 g/dL (12.0-16.0); Lymphocytes 3 % (21-51); MDiff Complete? YES; Mean Corpuscular Hemoglobin 23.2 pg (27.0-31.0); Mean Corpuscular Volume 98.2 fl (81.0-99.0); Mean Platelet Volume 7.4 fL (7.4-10.4); Monocytes 1 % (0-10); Neutrophil 92 % (42-75); Platelet Count 227 thou/uL (130-400); RBC Distribution Width 14.1 % (11.5-14.5); Reactive Lymphocytes 2 % (0-10); Red Blood Cell (RBC) Count 4.26 mill/uL (4.20-5.40); White Blood Cell (WBC) Count 14.7 thou/uL (4.8-10.8)
[2017-09-17 11:08] LABS: Mean Corpuscular HGB CONC 23.6 g/dL (32.0-36.0)
[2017-09-17] MEDS: Acetaminophen ER (8hr) 650 MG TAB PO PRN (15:04)
[2017-09-17] MEDS: Montelukast Sodium 10 mg Tablet PO SCH (21:11)
[2017-09-17] MEDS ORDERED: Lorazepam 0.5 MG TAB PO PRN (21:29)
[2017-09-18 04:37] LABS: #Lymphocytes 0.4 thou/uL (1.20-3.40); #Monocytes 0.5 thou/uL (0.11-0.59); #Neutrophils 11.1 thou/uL (1.40-6.50); %Eosinophils 0.2 % (0.0-10.0); %Lymphocytes 3.4 % (21.0-51.0); %Monocytes 4.5 % (0.0-10.0); Hemoglobin 10.9 g/dL (12.0-16.0); Mean Corpuscular HGB CONC 31.4 g/dL (32.0-36.0); Mean Corpuscular Hemoglobin 30.4 pg (27.0-31.0); Mean Platelet Volume 7.5 fL (7.4-10.4); Platelet Count 231 thou/uL (130-400); RBC Distribution Width 13.9 % (11.5-14.5); Red Blood Cell (RBC) Count 3.59 mill/uL (4.20-5.40)
[2017-09-18 05:44] LABS: BUN (Urea Nitrogen) 20 mg/dL (9.8-20.1); Calc. Creatinine Clearance 88 mL/min (70-130); Calcium 8.9 mg/dL (7.8-10.44); Estimated GFR-MDRD Greater than 90; Glucose 212 mg/dL (80-115)
[2017-09-18] MEDS: Gabapentin 300 MG CAP PO SCH ×2 (05:46→11:12)
[2017-09-18] MEDS: Alendronate Sodium 70 mg Tablet PO SCH (05:48)
[2017-09-18 05:53] LABS: Anion Gap 15 mmol/L (10-20); Carbon Dioxide 35 mmol/L (23-31); Chloride 96 mmol/L (98-107); Potassium 4.8 mmol/L (3.5-5.1); Sodium 141 mmol/L (136-145)
[2017-09-18 08:10] VITALS: TEMP 97.1
[2017-09-18] MEDS: Mometasone/Formoterol 120 PUFF INHALER INH SCH (08:40)
[2017-09-18] MEDS: Nebivolol HCl 2.5 MG TAB PO SCH (08:50)
[2017-09-18] MEDS: Famotidine 20 MG TAB PO SCH (08:50)
[2017-09-18] MEDS: Flecainide 50 MG TAB PO SCH (08:51)
[2017-09-18] MEDS: Cefdinir 300 MG CAP PO SCH (08:51)
[2017-09-18] MEDS: Apixaban 5 MG TAB PO SCH (08:51)
[2017-09-18] MEDS: Digoxin 0.125 MG TAB PO SCH (08:51)
[2017-09-18] MEDS: Docusate 100 MG CAP PO SCH (08:52)
[2017-09-18] MEDS: predniSONE 20 MG TAB PO SCH (08:52)
[2017-09-18] MEDS: guaiFENesin ER 600 MG TAB PO SCH (08:52)
[2017-09-18] MEDS: Insulin Detemir 100 UNITS/ML 20 UNITS in Pre-Filled Syringe 1 EACH SC SCH (08:53)
[2017-09-18] MEDS: cycloSPORINE 0.05% Ophthalmic Droperette EA EYE SCH (08:56)
[2017-09-18 09:19] LABS: Fungus Stain Final report (.)
[2017-09-18 10:51] VITALS: BP 166/93
--- NOTE | 2017-09-18 10:59 | DIS ---
PRIMARY CARE PHYSICIAN: Dr. Cornelia Martinez DATE OF ADMISSION: 09/03/2017 DATE OF DISCHARGE: 09/18/2017 DISCHARGE DIAGNOSES: 1. Acute hypoxic and hypercapnic respiratory failure. 2. Community-acquired pneumonia. 3. Chronic obstructive pulmonary disease. 4. Squamous cell carcinoma of the lung. 5. Physical deconditioning. SECONDARY DIAGNOSES: 1. Atrial fibrillation. 2. 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 3 Right breast cancer, status post surgery and radiation. CONDITION OF PATIENT ON THE DAY OF DISCHARGE: Stable. I assessed Ms. Gutierrez on the day of discharge. She denies any chest pain or fevers. Shortness of allegra ath is better. Vital signs are stable. S1 and S2 are heard, regular. Lungs are clear to auscultati on bilaterally. CONSULTATIONS DURING THIS HOSPITALIZATION: Pulmonary and Critical Care Medicine, Dr. Dacosta. INVESTIGATIONS DURING THIS HOSPITALIZATION: 1. Chest x-ray on 09/03/2017 which showed development of right basilar pleural and/or parenchymal o pacity. 2. CT scan of the chest on 09/08/2017, which showed soft tissue density filling the bronchi of the r ight lower lobe and right middle lobe, neoplasm versus mucous plugging were primary considerations. She also had parenchymal opacity throughout the right lung including some mass-like configurations. She had a small right pleural effusion. PROCEDURES DURING THIS HOSPITALIZATION: Bronchoscopy on 09/10/2017 and 09/15/2017. DISCHARGE MEDICATIONS: Tylenol Arthritis 650 mg 4 times a day as needed, Tylenol suppository 650 mg every 4 hours as needed, Tylenol #3 one tablet every 8 hours as needed, Fosamax 70 mg every week, api xaban 2.5 mg 2 times a day, Symbicort 2 puffs 2 times a day, cefdinir 300 mg 2 times a day for 1 week , vitamin D3 1000 units daily, digoxin 0.125 mg daily as needed, diltiazem CD 180 mg daily, flecainid e 50 mg 2 times a day, gabapentin 600 mg every 6 hours, Mucinex 600 mg every 12 hours, Humalog insuli n as needed, Lantus insulin 15 units daily, Xopenex nebulizers q.8h., Ativan 0.5 mg 3 times a day, Si ngulair 10 mg at bedtime, nebivolol 2.5 mg daily, prednisone taper, Restasis eyedrops, Spiriva 18 mcg inhalation daily, Ventolin inhaler p.r.n. HOSPITAL COURSE: Ms. Gutierrez is a pleasant 62-year-old lady who was admitted to [facility] on 09/03/2017 for acute hypoxic and hypercapnic respiratory failure secondary to pneumoni a and a possible chronic obstructive pulmonary disease exacerbation. She was treated with oxygen, st eroids, bronchodilators and antibiotics. She was also treated with BiPAP. On 09/08/2017, she had CT scan of the chest, with findings as described above. She was seen by Pulmonary Critical Care Medici ne. She underwent bronchoscopy on 09/10/2017, which showed right main stem necrotic mass occluding e ntire right lung. Biopsy and cytology were nondiagnostic. She had a repeat bronchoscopy with biopsy . Cytology and biopsy were both positive for squamous cell carcinoma, moderately differentiated. On 09/15/2017, she also had an episode of respiratory distress and was transferred to the IMCU. She im proved with supportive treatments. She was transferred back to the medical floor on 09/17/2017. She became deconditioned during this hospitalization. She has been accepted for a swing bed at [facility] and is being discharged to the swing bed on 09/18/2017. She has indicated her interest in following up with her own heating worker and oncologist at [facility]. I wish her all the best. Many thanks for allowing me to participate in your patient's care. Please feel free to contact me wi th any questions or concerns. DISCHARGE DESTINATION: Swing bed at [place]. TOTAL AMOUNT OF TIME SPENT COORDINATING THIS DISCHARGE: 33 minutes.
[2017-09-18] MEDS ORDERED: Lorazepam 0.5 MG TAB PO SCH (11:15)
--- NOTE | 2017-09-18 11:28 | PRG ---
DATE OF SERVICE: 09/18/2017 SUBJECTIVE: The patient this morning, awake, alert, responsive. She has slight cough and less shortness of breath. PHYSICAL EXAMINATION: VITAL SIGNS: Respiratory rate 20, temperature _98 (00:07), O2 sats95_ (00:08) on 4 liters. Denies any pain. Still coughing some yellow to bloody sputum. CHEST: Bilateral rhonchi and crackles. CARDIAC: Normal S1 and S2. LABORATORY DATA: Lytes are normal. White count 12,000. IMPRESSION: 1. Squamous cell carcinoma of right proximal bronchus intermedius with complete obstruction, associated atelectasis. 2. Severe chronic obstructive pulmonary disease. She is going to [facility]. 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 [facility] HOSPITALEsvin
--- NOTE | 2017-09-30 13:43 | PQF ---
BENNETT BARNES EVAN RAJESH, [place] [id number] [facility]- B10 [id number] CLINICAL DOCUMENTATION CLARIFICATION FORM: POST DISCHARGE Addendum to original discharge summary date: ____ Late entry note date: __ DATE: 09/30/2017 ATTN: DR. MENA Please exercise your independent, professional judgment in responding to the clarification form. Clinical indicators are provided on the bottom of this form for your review Please check appropriate box(es): [ X ] Sepsis due to: (Pna, UTI, gangrenous gall bladder, etc.) Pneumonia Due to: [ ] Device (please specify) [ ] Implant [ ] Graft [ ] Infusion [ ] SIRS due to non-infectious process (please specify etiology) [ ] with organ dysfunction [ ] without organ dysfunction [ ] Severe sepsis with acute organ dysfunction of: (Examples: respiratory failure, encephalopathy, acute kidney failure, other) [ ] Septic Shock [ ] Localized infection without sepsis [ ] Other diagnosis [ ] Unable to determine In addition, please specify: Present on Admission (POA): [ X ] Yes [ ] No [ ] Unable to determine For continuity of documentation, please document condition throughout progress notes and discharge summary. Thank You. CLINICAL INDICATORS - SIGNS / SYMPTOMS / LABS: Fever : 100.1 Respiratory rate : 26 WBC count : 24,000 with only 3 bands H&P: Acute hypoxic and hypercapnic respiratory failure Pneumonia Leukocytosis DS: Acute hypoxic and hypercapnic respiratory failure Community-Acquired Pneumonia SCC of lung RISK FACTORS: Pneumonia Cancer TREATMENTS: Levaquin (This form is maintained as a part of the permanent medical record) 2014 [employer]. All Rights Reserved Mirna Kirby CCS, [facility] [email or web address] [phone] MTDD
--- NOTE | 2017-10-01 09:15 | ADD-DIS ---
ADDENDUM "Ms. Gutierrez's discharge diagnoses also includes": Sepsis due to pneumonia. This was present on admis michael.
== END 2017-09-18 11:23 | disposition swing bed (61) | DRG 871 ==
LOC: ERS 16:30 → IMCU/EMU 21:07 → ONC 09-13 16:04 → CCU 09-15 12:55 → IMCU/EMU 09-16 06:44 → 2NO 09-17 16:54 → IMCU/EMU 09-17 17:00 → T4-B 09-17 18:49
PROVIDERS: ADMIT Emergency Medicine; ATTEND Emergency Medicine
PROC: 5A09457 Assistance with Respiratory Ventilation, 24-96 Consecutive Hours, Continuous Positive Airway Pressure (ICD-10-PCS; 2017-09-03)
PROC: 0BD38ZX Extraction of Right Main Bronchus, Via Natural or Artificial Opening Endoscopic, Diagnostic (ICD-10-PCS; 2017-09-10)
PROC: 0BD48ZX Extraction of Right Upper Lobe Bronchus, Via Natural or Artificial Opening Endoscopic, Diagnostic (ICD-10-PCS; principal; 2017-09-15)
DX: A41.9 Sepsis, unspecified organism (principal); J18.9 Pneumonia, unspecified organism; J96.02 Acute respiratory failure with hypercapnia; E87.2 Acidosis; C34.01 Malignant neoplasm of right main bronchus; B44.81 Allergic bronchopulmonary aspergillosis; J96.21 Acute and chronic respiratory failure with hypoxia; Z94.81 Bone marrow transplant status; J98.11 Atelectasis; J44.0 Chronic obstructive pulmonary disease with (acute) lower respiratory infection; J44.1 Chronic obstructive pulmonary disease with (acute) exacerbation; I48.91 Unspecified atrial fibrillation; Z66 Do not resuscitate; Z87.891 Personal history of nicotine dependence; Z79.01 Long term (current) use of anticoagulants; Z85.6 Personal history of leukemia; Z85.3 Personal history of malignant neoplasm of breast; Z79.891 Long term (current) use of opiate analgesic
CPT/HCPCS: 36415; 36416; 51702; 71045; 71046; 71250; 80048; 80053; 81003; 82553; 82565; 82805; 83605; 83690; 83880; 84484; 85014; 85018; 85025; 85049; 85379; 85610; 85730; 87040; 87070; 87086; 87102; 87116; 87205; 87206; 88104; 88112; 88305; 88312; 88313; 88341; 88342; 93005; 94640; 94644; 94660; 94667; 94668; 96361; 96365; 96375; 99152; 99153; A4216; G8978-GP-CI; G8978-GP-CL; G8979-GP-CI; G8979-GP-CJ; G8987-GO-CJ; G8988-GO-CJ; G8989-GO-CJ; J0171; J0692; J1100; J1815; J1956; J2001; J2060; J2250; J2270; J2920; J3010; J3475; J7506; J7611; J7614; J7620; J7644

== ENCOUNTER 2017-10-06 13:28 | Outpatient (CLI) | payer MEDICARE, OTHER ==
--- NOTE | 2017-10-06 17:09 | PET ---
NUCLEAR MEDICINE FDG PET CT: HISTORY: Right-sided breast cancer. Right-sided lung cancer. AML. COMPARISON: CT of the chest from 09/08/17. TECHNIQUE: PET CT was performed from the skull base to the mid thigh after the intravenous administration of 11. 3 mCi of FDG. FINDINGS: Corresponding to the recent CT findings is a right lower lobe endobronchial mass extending into the s egmental bronchi. This endobronchial mass has SUV max of 7.58. This mass extends into the superior segment right lower lobe as well as posterior and medial segments and lateral segments right lower lo be. There is a metastatic right lower paratracheal lymph node measuring 9 mm in short axis. There are some peripheral nodules within the right lower lobe which have SUV max of less than 2.5. There is increased uptake within the muscles of inspiration. No definite evidence for osseous metast atic disease. There are some foci of peripheral pleural thickening in the right upper lobe which is similar to 2009 examination. No left hilar adenopathy. No supraclavicular adenopathy. IMPRESSION: Endobronchial mass of the distal right mainstem bronchus extending into all segmental branches of the right lower lobe indicative of malignancy. There is also right paratracheal adenopathy. No supracla vicular nor opposite mediastinal adenopathy. No evidence for distant metastatic disease. POS: GRAEME
== END 2017-10-06 13:29 | disposition home or self-care (01) ==
LOC: PET 13:28
PROVIDERS: ATTEND Internal Medicine Hematology & Oncology
DX: C34.91 Malignant neoplasm of unspecified part of right bronchus or lung (principal); R59.0 Localized enlarged lymph nodes
CPT/HCPCS: 78815; A9552